=== PATIENT | female | born 1970 | race Caucasian/White ===

== ENCOUNTER 2018-10-04 19:53 | Inpatient (IN) | payer OTHER ==
[~2018-10-04] VITALS: Ht 157.5 cm; Wt 62.3 kg
[2018-10-05 00:12] VITALS: BP 155/83; RESP 18
[2018-10-05] MEDS ORDERED: DOCUSATE SODIUM 100 MG CAP PO PRN (00:30)
[2018-10-05] MEDS ORDERED: BISACODYL (EC) 5 MG TAB PO PRN (00:30)
[2018-10-05] MEDS ORDERED: ACETAMINOPHEN 325 MG TAB PO PRN (00:30)
[2018-10-05] MEDS ORDERED: morphine 2 MG INJ IV PRN (00:30)
[2018-10-05] MEDS ORDERED: NACL 0.9% 3 ML SYG IV SCH (00:30)
--- NOTE | 2018-10-05 00:36 | HP ---
Date/Time of Note Date/Time of Note DATE: 10/05/18 TIME: 00:36 Assessment/Plan VTE Prophylaxis SCD applied (from Ns): Yes Pharmacological prophylaxis: NA/contraindicated Pharm contraindication: low risk/ambulating Assessment/Plan Hospital Course This is a 48-year-old female being admitted to the [facility] floor for: #1 Severe normocytic anemia: She did receive 1 unit of packed red blood cells at the transferring facility, her hemoglobin did go up to 9. At the current time we will check a stat CBC. And transfuse as indicated. She does have blood in the chest tube catheter at the current time etiology suspicious for malignancy. Will obtain a CT of the chest abdomen and pelvis to further evaluate. Will avoid NSAIDs. #2 Bilateral pleural effusions: Patient does currently have a right-sided chest tube in place. CT scan from the transfer facility did show bilateral pleural effusions with concern for loculations and possible pneumonia. Patient currently is afebrile. Will prophylactically at the current time to treat her with Zosyn IV for underlying infection.. Will consult pulmonology For further evaluation. We will get a repeat CT of the chest. Will likely need CT surgery consultation as well. #3 Right-sided lung mass: We will consult IR for CT-guided lung mass biopsy which will need to send for cytology to assess for underlying malignancy. #4 end-stage renal disease: Patient is currently on PD. Will consult nephrology Dr. Ceballos. Will avoid nephrotoxic agents. Will avoid NSAIDs. #5 renovascular hypertension: We will need to confirm patient's home medications and resume #6 history of intracranial hemorrhage: Inactive at the current time #7 seizure disorder: We will need to confirm patient's home medications and resume #8 DVT GI prophylaxis: SCDs, no GI prophylaxis indicated Further treatment strategy will be implemented as per the clinical course. I did discuss patient's right lung mass and the need for a biopsy, patient did verbalize consent to have the procedure performed she does understand the risks and benefits such as pneumothorax, bleeding etc. And she would like to proceed with lung biopsy. Will consult IR for this. . HPI/ROS Admit Date/Time Admit Date/Time Oct 04, 2018 at 23:55 Hx of Present Illness Chief complaint: Low hemoglobin, sent to the ER from her primary care doctor for low hemoglobin and shortness breath dizziness This is a 48-year-old female originally presented to 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 she had gone to her nephrology office who had noticed a low hemoglobin and she was sent to the ED for blood transfusion. Patient reported fatigue, shortness of breath and generalized weakness. She has a history of multiple transfusions over the last year. Patient had been admitted to [facility] in September and at that time she had been diagnosed with a exudative effusion and cytology was pending at discharge. She had also had a right lung mass found and a biopsy was discussed however patient did not want to pursue this at that time. She also missed several PT sessions. Patient was subsequently admitted to [facility] she had a CT of the chest done which showed a large right and moderate left loculated pleural effusions with adjacent atelectasis and/or pneumonia. Recommended to have clinical correlation to exclude empyema or malignant etiology patient also had a ultrasound thoracentesis draining 425 mils of serosanguineous fluid. Patient did receive 1 unit of PRBCs. No active signs of bleeding were noted. For her lung mass cytology was negative. Patient also history of end-stage renal disease and she was continued on PD. Patient also was noted to have a left reflective of uremia and she had peritoneal dialysis performed. Patient arrived to [facility] in stable condition. Her currently has a pig tail/ chest tube connected to a catheter under water seal. There is blood in the catheter. She denies any symptoms at the current time. Allergies: NKDA Medications: See MAR ++Please see laboratory results and imaging studies in the chart documentation for further details. ROS Const: Negative for fever, chills, weight gain or weight loss, fatigue, or diaphoresis Eyes : No pain discharge or redness or change in visual acuity ENT: No pain, sore throat, congestion, congestion, dysphagia or discharge Respiratory: No shortness of breath, cough, sputum, wheezing, or pleuritic pain Cardiovascular: No chest pain, palpitation, PND, or edema GI : no change in appetite, abdominal pain, nausea, vomiting, diarrhea, constipation, or change in the color his stool Genitourinary: No dysuria, hematuria, flank pain , discharge or CVA tenderness Musculoskeletal: No joint pain, back pain, neck pain, restricted range of motion in neck or joints Skin: No rash, bruising or hives Neuro: No headache, dizziness, syncope, seizure, focal weakness Endocrine: No polyuria, polydipsia, temperature intolerance Psych: No hallucination, depression, anxiety or suicidal ideation PMH/Family/Social Past Medical History Severe anemia secondary to anemia of chronic renal disease and/or possible malignancy, end-stage renal disease on peritoneal dialysis, renovascular hypertension, hypercholesterolemia, history of intracranial hemorrhage and seizure disorder Lung mass pleural effusion both transudative and exudative. Medications Current Medications IV Flush (NS 3 ml) 3 ml PER PROTOCOL IV ; Start 10/05/18 at 00:30; Status UNV Ondansetron HCl (Zofran Inj) 4 mg Q6H PRN IV NAUSEA/VOMITING; Start 10/05/18 at 00:30; Status UNV Acetaminophen (Tylenol Tab) 650 mg Q6H PRN PO .PAIN 1-3 OR TEMP; Start 10/05/18 at 00:30; Status UNV Docusate Sodium (Colace) 100 mg Q12H PRN PO .CONSTIPATION; Start 10/05/18 at 00:30; Status UNV Bisacodyl (Dulcolax) 5 mg DAILY PRN PO .CONSTIPATION; Start 10/05/18 at 00:30; Status UNV Acetaminophen/ Hydrocodone Bitart ([place] (5/325)) 1 tab Q4H PRN PO MODERATE PAIN LEVEL 4-6; Start 10/05/18 at 00:30; Status UNV Morphine Sulfate (morphine) 1 mg Q4H PRN IV SEVERE PAIN LEVEL 7-10; Start 10/05/18 at 00:30; Status UNV Coded Allergies: No Known Allergy (Unverified , 10/05/18) Past Surgical History unknown, unable to obtain Family History Significant Family History: other (unknown unable to obtain) Social History Alcohol Use: none Smoking Status: Unknown if ever smoked Drug Use: none Exam/Review of Systems Vital Signs Vitals Vital Signs Date Temp Pulse Resp B/P (MAP) Pulse Ox O2 O2 Flow FiO2 Time Delivery Rate 10/05/18 98.9 18 155/83 98 00:12 (107) Exam Exam General: Patient is currently lying in bed in no acute distress HEENT: Atraumatic, normocephalic. The pupils are equal, round and reactive. Ext raocular motor are intact Neck: Supple with full range of motion. No rigidity or meningismus Chest: Right pigtail catheter connected to catheter under waterseal draining blood Lungs: Coarse breath sounds of the right lung field Heart: Normal S1-S2, Regular rhythm and rate. Abdomen: Peritoneal dialysis catheter, soft , nontender, nondistended , bowel sounds are present. No guarding no rebound tenderness , No masses or organomegaly. No costovertebral temporal angle mass Extremities: Normal to inspection, no edema no cyanosis Neurologic: Normal mental status, speech normal, cranial nerves II through XII are intact, motor and sensory are intact, no focal weakness CHARLI GUTIERREZ Oct 05, 2018 00:36
[2018-10-05] MEDS: morphine 2 MG INJ IV PRN ×5 (01:29→23:24)
[2018-10-05 02:06] VITALS: BP 149/83; PULSE 93; RESP 18
[2018-10-05] MEDS ORDERED: SOD CHLORIDE 0.9% 250 ML IV* ONE (06:59)
[2018-10-05 07:07] VITALS: Ht 157.5 cm; Wt 62.3 kg
[2018-10-05 07:58] VITALS: BP 178/87; PULSE 93; RESP 16
[2018-10-05] MEDS: PIPER-TAZO 2.25 GM (PMX) 50 ML IVPB SCH ×3 (10:00→22:06)
[2018-10-05] MEDS ORDERED: ATOR40TA68 PO (10:58)
[2018-10-05] MEDS ORDERED: AMLO2.5T78 PO (10:58)
[2018-10-05] MEDS ORDERED: ALBU18HF INHALATION ×2 (10:59)
[2018-10-05] MEDS ORDERED: CALC667T2 PO (10:59)
[2018-10-05] MEDS ORDERED: ONDA4TAB13 PO (10:59)
[2018-10-05] MEDS ORDERED: TRAM50TA2 PO (10:59)
[2018-10-05] MEDS ORDERED: ACET1TAB40 PO (10:59)
[2018-10-05] MEDS ORDERED: OMEP20CA16 PO (10:59)
[2018-10-05] MEDS ORDERED: GABA100C14 PO (10:59)
[2018-10-05] MEDS ORDERED: BECL10.6 IH (10:59)
[2018-10-05] MEDS ORDERED: [UNRECOGNIZED DRUG - CODE] PO (10:59)
[2018-10-05] MEDS ORDERED: CLON0.2T5 PO (10:59)
[2018-10-05] MEDS ORDERED: FOLI-49 PO (10:59)
[2018-10-05] MEDS ORDERED: SVL800C PO (10:59)
[2018-10-05] MEDS ORDERED: FER325 PO (10:59)
[2018-10-05] MEDS ORDERED: ZOLP10TA5 PO (10:59)
[2018-10-05] MEDS ORDERED: LOSA50TA2 PO (10:59)
[2018-10-05] MEDS ORDERED: [UNRECOGNIZED DRUG - OTHER] PO (10:59)
[2018-10-05] MEDS ORDERED: METO-319 PO (10:59)
[2018-10-05] MEDS ORDERED: LORA1TAB PO (10:59)
--- NOTE | 2018-10-05 13:08 | CONS ---
DATE OF ADMISSION: 10/04/2018 DATE OF CONSULTATION: 10/05/2018 TYPE OF CONSULTATION: Nephrology. REASON FOR CONSULTATION: End-stage renal disease. HISTORY OF PRESENT ILLNESS: This is a 48-year-old female with a past medical history of end-stage re nal disease. The patient is on peritoneal dialysis. 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 from her early childhood worker's office due to shortness of breath and dizziness. The patient upon arrival to [facility] was noted to have h emoglobin of 5, had a blood transfusion. Patient was noted to have exudative effusion, cytology. Th e patient also noted to have a right lung mass with a right moderate to left loculated effusion. The patient had a chest tube placement. The patient was then transferred to [facility] for continued care. Upon my evaluation of the patient at this time, she is currently stable. Denies any fevers, chills, nausea, vomiting. PAST MEDICAL HISTORY: See above, history of end-stage renal disease, hypertension, history of anemia , history of mineral bone disorder, history of intracranial hemorrhage. PAST SURGICAL HISTORY: Status post PD catheter placement, status post chest tube placement. FAMILY HISTORY: No family history of kidney disease. SOCIAL HISTORY: Does not drink, smoke or do drugs. MEDICATIONS: The patient's medications have been reviewed. REVIEW OF SYSTEMS: A 14-point review of systems conducted. Pertinent positives stated in HPI, other sutton negative. PHYSICAL EXAMINATION: VITAL SIGNS: Blood pressure is 178/87, respirations 16, pulse 93, temperature 98.8. HEENT: Head is normocephalic. NECK: Supple. HEART: Regular rate. LUNGS: Show diminished breath sounds at base. ABDOMEN: Soft. Positive PD catheter. No erythema or discharge noted. EXTREMITIES: Negative for clubbing, cyanosis, no edema. DERMATOLOGIC: No rashes. MUSCULOSKELETAL: No joint effusion. NEUROLOGIC: No focal deficits. IMAGING STUDIES: A CT scan of abdomen and pelvis shows thickening of the right colon, may be infecti ous or inflammatory colitis, low attenuated liver parenchyma compatible with moderate to severe steat osis, atrophic kidneys. CT scan of the chest shows large complex septated right-sided loculated righ t pleural effusion with pigtail catheter in place, enlarged central pulmonary arteries, mediastinal l ymphadenopathy. LABORATORY DATA: Reviewed. The patient has hemoglobin 7.1. Sodium 139, potassium 4.8, BUN 98, crea tinine 12.04. ASSESSMENT AND PLAN: This is a 48-year-old female who presents with: 1. End-stage renal disease. The patient is on peritoneal dialysis, per patient, she has 4 to 5 exch anges at night between 2.5 and 1.5% dextrose bags with a 2 liter fill and approximately 2.5 hour dwel l time. Plan is for peritoneal dialysis. Continue current regimen. 2. Anemia. Patient will be started on Epogen. 3. Mineral bone disorder. Will monitor calcium and phosphorus levels. Continue phosphorus binders. 4. Hypertension. Continue current blood pressure regimen. Continue ultrafiltration dialysis. 5. Bilateral pleural effusion with right-sided chest tube. The patient's fluid has been sent out fo r culture. Continue antibiotic therapy. 6. History of right-sided lung mass. Will continue to monitor. Follow up with primary team. Consi seth CT surgery evaluation. 7. Hypertension. Continue current blood pressure regimen. 8. History of intracranial hemorrhage. 9. Seizure disorder, continue medical management. Thank you, Dr. Gutierrez, for this interesting consult. It will be a pleasure to follow patient with ludmila toribio throughout the hospital course. Dictated By: PHILLIP SILVERIO DO NR/NTS Conf#: [id number] DID#: [id number] CC: YOSVANY DAS MD; CHARLI GUTIERREZ MD;*EndCC*
[2018-10-05] MEDS: SEVELAMER CARBONATE 800 MG TABLET PO SCH ×2 (14:18→18:13)
[2018-10-05 14:40] VITALS: BP 160/80; PULSE 94; RESP 18
--- NOTE | 2018-10-05 15:29 | CONS ---
Assessment/Plan Assessment/Plan Assessment/Plan (Daily) IMP: 1. Multi-loculated right pleural effusion with associated compressive and rounded atelectasis--though cannot exclude a mass-like RUL density (although likely atelectasis) and lung entrapment. Etiology of pleural effusion may be to a hemothorax which would explain her anemia. Cannot rule out malignancy RECS: 1. Ideally, a CT chest with IV contrast would be needed to help differentiate the RUL area of atelectasis vs. mass. Would need to discuss with Nephrology 2. Place CT to 20 cm H2O suction 3. Thoracic Surgery consult for possible VATS debridement/decortication and biopsy. 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 The patient upon arrival to [facility] was noted to have hemoglobin of 5, had a blood transfusion. The patient was noted to have a large multiloculated right pleural effusion and had a Rolando chest tube placed draining bloody fluid. I do not see the actual pleural fluid studies but it is reported as being exudative. Also, report of a right lung mass pending biopsy. Constitutional: no complaints Eyes: no complaints ENT: no complaints Respiratory: no complaints Cardiovascular: no complaints Gastrointestinal: pain Genitourinary: no complaints Musculoskeletal: no complaints Skin: no complaints Neurologic: no complaints Past Medical History as per HPI Home Meds Reported Medications Zolpidem Tartrate* (Zolpidem Tartrate*) 10 Mg Tablet, 10 MG PO QHS PRN for INSOMNIA, #30 TAB 10/05/18 Ondansetron Hcl* (Zofran*) 4 Mg Tab, 4 MG PO BID for n/v, TAB 10/05/18 Warfarin Sodium (Warfarin Sodium) 2 Mg Tablet, 4 MG PO DAILY, TAB 10/05/18 Albuterol Sulfate* (Ventolin HFA*) 18 Gm Hfa.aer.ad, 2 PUFF INHALATION Q6H PRN for SHORTNESS OF BREATH, #1 INHALER 10/05/18 Albuterol Sulfate* (Ventolin HFA*) 18 Gm Hfa.aer.ad, 1 PUFF INHALATION Q6, #1 INHALER 10/05/18 Acetaminophen with Codeine (Acetaminophen-Cod #3 Tablet) 1 Each Tablet, 1 TAB PO Q8 PRN for PAIN LEVEL 6-10, #20 TAB 10/05/18 Tramadol HCl (Tramadol HCl) 50 Mg Tablet, 50 MG PO BID, #60 TAB 10/05/18 Sevelamer Hcl* (Renagel*) 800 Mg Tablet, 2400 MG PO WITH MEALS, TAB 10/05/18 Beclomethasone Dipropionate (Qvar Redihaler (40 MCG)) 10.6 Gm Hfa.aeroba, 40 MCG IH BID, INH 10/05/18 Calcium Acetate* (Phoslo*) 667 Mg Tablet, 667 MG PO WITH MEALS, TAB 10/05/18 Omeprazole* (Omeprazole*) 20 Mg Capsule.dr, 20 MG PO DAILY, #30 CAP 10/05/18 [Nephrovites] No Conflict Check, 1 PO DAILY 10/05/18 Metoprolol Succinate* (Toprol XL*) 50 Mg Tab.er.24h, 50 MG PO DAILY, #30 TAB 10/05/18 Losartan Potassium* (Cozaar*) 50 Mg Tablet, 50 MG PO BID, #60 TAB 10/05/18 Lorazepam* (Lorazepam*) 1 Mg Tablet, 1 MG PO BID PRN for ANXIETY, #30 TAB 10/05/18 Gabapentin* (Gabapentin*) 100 Mg Capsule, 100 MG PO TID, #90 CAP 10/05/18 Folic Acid* (Folic Acid*) 1 Mg Tablet, 1 MG PO DAILY, TAB 10/05/18 Ferrous Sulfate* (Ferrous Sulfate*) 325 Mg Tabec, 325 MG PO DAILY, TAB 10/05/18 Clonidine Hcl* (Clonidine Hcl*) 0.2 Mg Tablet, 0.2 MG PO Q4H PRN for ELEVATED BLOOD PRESSURE, TAB 10/05/18 Amlodipine Besylate* (Amlodipine Besylate*) 2.5 Mg Tablet, 5 MG PO DAILY, #30 TAB 10/05/18 Atorvastatin* (Atorvastatin*) 40 Mg Tablet, 40 MG PO QHS, #30 TAB 10/05/18 Medications Current Medications IV Flush (NS 3 ml) 3 ml PER PROTOCOL IV Last administered on 10/05/18at 01:29; Admin Dose 3 ML; Start 10/05/18 at 00:30 Ondansetron HCl (Zofran Inj) 4 mg Q6H PRN IV NAUSEA/VOMITING; Start 10/05/18 at 00:30 Acetaminophen (Tylenol Tab) 650 mg Q6H PRN PO .PAIN 1-3 OR TEMP; Start 10/05/18 at 00:30 Docusate Sodium (Colace) 100 mg Q12H PRN PO .CONSTIPATION; Start 10/05/18 at 00:30 Bisacodyl (Dulcolax) 5 mg DAILY PRN PO .CONSTIPATION; Start 10/05/18 at 00:30 Acetaminophen/ Hydrocodone Bitart ([place] (5/325)) 1 tab Q4H PRN PO MODERATE PAIN LEVEL 4-6; Start 10/05/18 at 00:30 Morphine Sulfate (morphine) 2 mg Q4H PRN IV SEVERE PAIN LEVEL 7-10 Last administered on 10/05/18at 14:00; Admin Dose 2 MG; Start 10/05/18 at 00:38 Hydralazine HCl (Apresoline) 10 mg Q4H PRN IV ELEVATED SYSTOLIC BP; Start 10/05/18 at 01:30 Piperacillin Sod/ Tazobactam Sod 50 ml @ 100 mls/hr Q12 IVPB Last administered on 10/05/18at 14:18; Admin Dose 100 MLS/HR; Start 10/05/18 at 10:00 Sevelamer Carbonate (Renvela) 800 mg WITH MEALS PO Last administered on 10/05/18at 14:18; Admin Dose 800 MG; Start 10/05/18 at 12:00 Allergies: Coded Allergies: No Known Allergy (Unverified , 10/05/18) Past Surgical History Past Surgical Hx: other (PD catheter ) Social History Alcohol Use: none Smoking Status: Unknown if ever smoked Drug Use: none Exam/Review of Systems Exam Vitals Vital Signs Date Temp Pulse Resp B/P (MAP) Pulse Ox O2 O2 Flow FiO2 Time Delivery Rate 10/05/18 98.9 94 18 160/80 100 14:40 (106) 10/05/18 Nasal 3.0 09:20 Cannula Intake and Output 10/04/18 10/04/18 10/05/18 1515:00 23:00 07:00 OutputOutput Total 0 ml BalanceBalance 0 ml Constitutional: alert, oriented Psych: no complaints Head: normocephalic, atraumatic Eyes: nl conjunctiva, EOMI, nl lids ENMT: nl external ears & nose, nl lips & teeth, nl nasal mucosa & septum Neck: supple, non-tender Respiratory: diminished breath sounds Cardiovascular: regular rate and rhythm Gastrointestinal: soft, nl liver, spleen, non-tender Musculoskeletal: nl extremities to inspection Extremities: normal pulses 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: COMPLETIONS ENGINEER II-XII intact, DTR's symmetric Results Result Diagram: 10/05/18 0121 10/05/18 0120 Results 24hrs Laboratory Tests Test 10/05/18 01:20 10/05/18 01:21 10/05/18 04:08 Sodium Level 139 Potassium Level 4.8 Chloride Level 94 L Carbon Dioxide Level 24 Anion Gap 21 H Blood Urea Nitrogen 98 H Creatinine 12.04 H Est Glomerular Filtrat Rate mL/min 3 L Glucose Level 92 Calcium Level 8.1 L Magnesium Level 2.1 Total Bilirubin 0.0 L Direct Bilirubin 0.00 Indirect Bilirubin 0.0 Aspartate Amino Transf (AST/SGOT) 35 Alanine Aminotransferase (ALT/SGPT) 11 L Alkaline Phosphatase 245 H Total Protein 5.9 L Albumin 2.5 L Globulin 3.40 H Albumin/Globulin Ratio 0.73 Thyroid Stimulating Hormone (TSH) 3.220 White Blood Count 12.9 H Red Blood Count 2.60 L Hemoglobin 7.1 L Hematocrit 22.6 L Mean Corpuscular Volume 86.9 Mean Corpuscular Hemoglobin 27.3 L Mean Corpuscular Hemoglobin Concent 31.4 L Red Cell Distribution Width 17.1 H Platelet Count 438 H Mean Platelet Volume 10.6 H Immature Granulocytes % 1.300 H Neutrophils % 71.3 Lymphocytes % 13.2 L Monocytes % 12.9 H Eosinophils % 0.8 Basophils % 0.5 Nucleated Red Blood Cells % 0.0 Immature Granulocytes # 0.170 H Neutrophils # 9.2 H Lymphocytes # 1.7 Monocytes # 1.7 H Eosinophils # 0.1 Basophils # 0.1 Nucleated Red Blood Cells # 0.0 Hemoglobin A1c 5.4 Phosphorus Level 6.9 H Medications Medication Current Medications IV Flush (NS 3 ml) 3 ml PER PROTOCOL IV Last administered on 10/05/18 01:29; Admin Dose 3 ML; Start 10/05/18 at 00:30 Ondansetron HCl (Zofran Inj) 4 mg Q6H PRN IV NAUSEA/VOMITING; Start 10/05/18 at 00:30 Acetaminophen (Tylenol Tab) 650 mg Q6H PRN PO .PAIN 1-3 OR TEMP; Start 10/05/18 at 00:30 Docusate Sodium (Colace) 100 mg Q12H PRN PO .CONSTIPATION; Start 10/05/18 at 00:30 Bisacodyl (Dulcolax) 5 mg DAILY PRN PO .CONSTIPATION; Start 10/05/18 at 00:30 Acetaminophen/ Hydrocodone Bitart ([place] (5/325)) 1 tab Q4H PRN PO MODERATE PAIN LEVEL 4-6; Start 10/05/18 at 00:30 Morphine Sulfate (morphine) 2 mg Q4H PRN IV SEVERE PAIN LEVEL 7-10 Last administered on 10/05/18at 14:00; Admin Dose 2 MG; Start 10/05/18 at 00:38 Hydralazine HCl (Apresoline) 10 mg Q4H PRN IV ELEVATED SYSTOLIC BP; Start 10/05/18 at 01:30 Piperacillin Sod/ Tazobactam Sod 50 ml @ 100 mls/hr Q12 IVPB Last administered on 10/05/18 14:18; Admin Dose 100 MLS/HR; Start 10/05/18 at 10:00 Sevelamer Carbonate (Renvela) 800 mg WITH MEALS PO Last administered on 10/05/18 14:18; Admin Dose 800 MG; Start 10/05/18 at 12:00 WILLIAM AUSTIN MD Oct 05, 2018 15:29
--- NOTE | 2018-10-05 16:47 | PN ---
Date/Time of Note Date/Time of Note DATE: 10/05/18 TIME: 16:45 Assessment/Plan VTE Prophylaxis Risk score (from Ns)>0 risk: 2 SCD applied (from Ns): Yes Pharmacological prophylaxis: heparin Lines/Catheters Urinary Cath still in place: No Assessment/Plan Hospital Course 48 yo female with ESRD on PD with loculated pleural effusion s/p CT - Continue CT - VATS consideration per CT surg - Appreciate pulmonary management ESRD: - PD per renal Anemia of CKD: - Transfuse to Hgb 7 - SONIA per renal Result Diagram: 10/05/18 0121 10/05/18 0120 Results 24hrs Laboratory Tests Test 10/05/18 01:20 10/05/18 01:21 10/05/18 04:08 Sodium Level 139 Potassium Level 4.8 Chloride Level 94 L Carbon Dioxide Level 24 Anion Gap 21 H Blood Urea Nitrogen 98 H Creatinine 12.04 H Est Glomerular Filtrat Rate mL/min 3 L Glucose Level 92 Calcium Level 8.1 L Magnesium Level 2.1 Total Bilirubin 0.0 L Direct Bilirubin 0.00 Indirect Bilirubin 0.0 Aspartate Amino Transf (AST/SGOT) 35 Alanine Aminotransferase (ALT/SGPT) 11 L Alkaline Phosphatase 245 H Total Protein 5.9 L Albumin 2.5 L Globulin 3.40 H Albumin/Globulin Ratio 0.73 Thyroid Stimulating Hormone (TSH) 3.220 White Blood Count 12.9 H Red Blood Count 2.60 L Hemoglobin 7.1 L Hematocrit 22.6 L Mean Corpuscular Volume 86.9 Mean Corpuscular Hemoglobin 27.3 L Mean Corpuscular Hemoglobin Concent 31.4 L Red Cell Distribution Width 17.1 H Platelet Count 438 H Mean Platelet Volume 10.6 H Immature Granulocytes % 1.300 H Neutrophils % 71.3 Lymphocytes % 13.2 L Monocytes % 12.9 H Eosinophils % 0.8 Basophils % 0.5 Nucleated Red Blood Cells % 0.0 Immature Granulocytes # 0.170 H Neutrophils # 9.2 H Lymphocytes # 1.7 Monocytes # 1.7 H Eosinophils # 0.1 Basophils # 0.1 Nucleated Red Blood Cells # 0.0 Hemoglobin A1c 5.4 Phosphorus Level 6.9 H Subjective 24 Hr Interval Summary Free Text/Dictation Patinet very comfortable, no complaints CT to suction in place Exam/Review of Systems Exam Vitals Vital Signs Date Temp Pulse Resp B/P (MAP) Pulse Ox O2 O2 Flow FiO2 Time Delivery Rate 10/05/18 98.9 94 18 160/80 100 14:40 (106) 10/05/18 Nasal 3.0 09:20 Cannula Intake and Output 10/04/18 10/04/18 10/05/18 1515:00 23:00 07:00 OutputOutput Total 0 ml BalanceBalance 0 ml Constitutional: alert, oriented, well developed Psych: no complaints, nl mood/affect Head: normocephalic, atraumatic Eyes: nl conjunctiva, EOMI, nl lids, nl sclera, PERRL ENMT: nl external ears & nose, nl lips & teeth, nl nasal mucosa & septum Neck: supple, non-tender Respiratory: clear to auscultation, normal air movement Cardiovascular: regular rate and rhythm, nl pulses Gastrointestinal: soft, nl liver, spleen, non-tender Musculoskeletal: nl extremities to inspection, nl gait and stance Extremities: normal pulses 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: 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, nl mental status, nl speech, nl strength Skin: nl turgor; No rash or lesions Lymph: nl lymph nodes Results Results 24hrs Laboratory Tests Test 10/05/18 01:20 10/05/18 01:21 10/05/18 04:08 Sodium Level 139 Potassium Level 4.8 Chloride Level 94 L Carbon Dioxide Level 24 Anion Gap 21 H Blood Urea Nitrogen 98 H Creatinine 12.04 H Est Glomerular Filtrat Rate mL/min 3 L Glucose Level 92 Calcium Level 8.1 L Magnesium Level 2.1 Total Bilirubin 0.0 L Direct Bilirubin 0.00 Indirect Bilirubin 0.0 Aspartate Amino Transf (AST/SGOT) 35 Alanine Aminotransferase (ALT/SGPT) 11 L Alkaline Phosphatase 245 H Total Protein 5.9 L Albumin 2.5 L Globulin 3.40 H Albumin/Globulin Ratio 0.73 Thyroid Stimulating Hormone (TSH) 3.220 White Blood Count 12.9 H Red Blood Count 2.60 L Hemoglobin 7.1 L Hematocrit 22.6 L Mean Corpuscular Volume 86.9 Mean Corpuscular Hemoglobin 27.3 L Mean Corpuscular Hemoglobin Concent 31.4 L Red Cell Distribution Width 17.1 H Platelet Count 438 H Mean Platelet Volume 10.6 H Immature Granulocytes % 1.300 H Neutrophils % 71.3 Lymphocytes % 13.2 L Monocytes % 12.9 H Eosinophils % 0.8 Basophils % 0.5 Nucleated Red Blood Cells % 0.0 Immature Granulocytes # 0.170 H Neutrophils # 9.2 H Lymphocytes # 1.7 Monocytes # 1.7 H Eosinophils # 0.1 Basophils # 0.1 Nucleated Red Blood Cells # 0.0 Hemoglobin A1c 5.4 Phosphorus Level 6.9 H Medications Medication Current Medications IV Flush (NS 3 ml) 3 ml PER PROTOCOL IV Last administered on 10/05/18 01:29; Admin Dose 3 ML; Start 10/05/18 at 00:30 Ondansetron HCl (Zofran Inj) 4 mg Q6H PRN IV NAUSEA/VOMITING; Start 10/05/18 at 00:30 Acetaminophen (Tylenol Tab) 650 mg Q6H PRN PO .PAIN 1-3 OR TEMP; Start 10/05/18 at 00:30 Docusate Sodium (Colace) 100 mg Q12H PRN PO .CONSTIPATION; Start 10/05/18 at 00:30 Bisacodyl (Dulcolax) 5 mg DAILY PRN PO .CONSTIPATION; Start 10/05/18 at 00:30 Acetaminophen/ Hydrocodone Bitart ([place] (5/325)) 1 tab Q4H PRN PO MODERATE PAIN LEVEL 4-6; Start 10/05/18 at 00:30 Morphine Sulfate (morphine) 2 mg Q4H PRN IV SEVERE PAIN LEVEL 7-10 Last administered on 10/05/18at 14:00; Admin Dose 2 MG; Start 10/05/18 at 00:38 Hydralazine HCl (Apresoline) 10 mg Q4H PRN IV ELEVATED SYSTOLIC BP; Start 10/05/18 at 01:30 Piperacillin Sod/ Tazobactam Sod 50 ml @ 100 mls/hr Q12 IVPB Last administered on 10/05/18 14:18; Admin Dose 100 MLS/HR; Start 10/05/18 at 10:00 Sevelamer Carbonate (Renvela) 800 mg WITH MEALS PO Last administered on 10/05/18 14:18; Admin Dose 800 MG; Start 10/05/18 at 12:00 YOSVANY DAS MD Oct 05, 2018 16:47
--- NOTE | 2018-10-05 17:06 | RADRPT ---
Echocardiogram Report Patient Name: Tiffany WOODYnt ID: [id number] : 1970 (48y 4m)Study Date: 10/05/2018 7:38:58 AM Gender: FAccession #: [id number] Tech: Julia Haynes Location: 2284-A Ref.Physician: CHARLI GUTIERREZ Height(Cm): BSA: Weight(Kg): Quality: GoodAccount #: Procedures: Echocardiographic Report: Transthoracic echocardiogram with complete 2D, M-Mode, and doppler examination. Indications: Pleural effusion, preop. Measurements: 2D/M Mode Doppler Measurement Value Normal Range Measurement Value Normal Range LVIDd 2D 4.3 [ 3.8 - 5.2 ] cm AV Peak Milton 1.5 [ 100.0 - 170.0 ] cm/se c LVIDs 2D 2.9 [ 2.2 - 3.5 ] cm AV Peak PG 9.0 [ 2.0 - 9.0 ] mmHg LVPWd 2D 0.9 [ 0.6 - 0.9 ] cm LVOT Peak [place] 1.0 [ 70.0 - 110.0 ] cm/sec IVSd 2D 0.9 [ 0.6 - 0.9 ] cm LVOT Peak PG 4.0 [ 2.0 - 6.0 ] mmHg AoR Diam 2D 2.4 [ 2.3 - 3.1 ] cm MV E Peak [place] 1.0 [ 60.0 - 130.0 ] cm/sec EDV 2D 83.1 [ 46.0 - 106.0 ] ml MV A Peak [place] 0.8 [ 100.0 - 120.0 ] cm/se c ESV 2D 33.3 [ 14.0 - 42.0 ] ml MV E/A 1.2 [ 0.8 - 1.5 ] ratio EF 2D 59.9 [ 54.0 - 74.0 ] percent MV PHT 48.0 [ 20.0 - 100.0 ] msec LA Dimen 2D 3.2 [ 2.7 - 3.8 ] cm MV Decel Time 165 [ 104 - 258 ] msec MV Decel Mitchell 6 Lat E` Milton 0.1 [ 10.0 - 15.0 ] cm/sec Lateral E/E` 10.6 [ 1.0 - 2.0 ] ratio Med E` Milton 0.1 cm/sec MV E/A 1.2 [ 0.8 - 1.5 ] ratio MVA PHT 4.6 [ 2.0 - 4.0 ] cm2 TR Peak Milton 2.9 [ 100.0 - 280.0 ] cm/se c TR Peak PG 33.0 mmHg RVSP 33.0 [ 10.0 - 36.0 ] mmHg RA Pressure 3.0 mmHg Findings: Left Ventricle: Lower limits of normal systolic function. Normal left ventricular cavity size. Normal left ventricular wall thickness. Ejection fraction is visually estimated at 50-55 %. Tissue Doppler/Mitral Doppler indices are within normal limits. Right Ventricle: Normal right ventricular size. Normal right ventricular systolic function. Left Atrium: The left atrium is normal in size. Right Atrium: The right atrium is normal in size. Atrial Septum: Normal atrial septum. Ventricular septum: Normal/intact ventricular septum. Mitral Valve: Normal appearance of the mitral valve. Mild to moderate mitral valve regurgitation. Aortic Valve: Normal appearance of the aortic valve. No aortic regurgitation. Tricuspid Valve: Normal appearance of the tricuspid valve. Estimated peak PA systolic pressure 36 mmHg. There is trace tricuspid regurgitation. Pericardium: Normal pericardium with no significant pericardial effusion. Aorta: Normal aortic root. IVC: Normal size and normal respiratory collapse consistent with normal right atrial pressure. Conclusions: Lower limits of normal systolic function. Normal left ventricular cavity size. Normal left ventricular wall thickness. Ejection fraction is visually estimated at 50-55 %. Tissue Doppler/Mitral Doppler indices are within normal limits. Normal appearance of the mitral valve. Mild to moderate mitral valve regurgitation. Normal appearance of the tricuspid valve. Estimated peak PA systolic pressure 36 mmHg. There is trace tricuspid regurgitation. Electronically Signed By: Kaleb Bang 2018-10-05 17:06:45 PDT
[2018-10-05 20:08] VITALS: BP 158/84; PULSE 101; RESP 18
[2018-10-05 20:46] VITALS: BP 175/94; PULSE 94
[2018-10-06 02:40] VITALS: BP 173/97; PULSE 96; RESP 18
[2018-10-06] MEDS: hydrALAzine 20 MG INJ IV PRN ×2 (02:59→08:48)
[2018-10-06] MEDS: morphine 2 MG INJ IV PRN ×5 (03:00→20:27)
[2018-10-06] MEDS: SEVELAMER CARBONATE 800 MG TABLET PO SCH ×3 (08:43→18:00)
[2018-10-06 08:49] VITALS: BP 172/95; PULSE 106; RESP 19
[2018-10-06 09:49] VITALS: BP 174/86; PULSE 113
[2018-10-06] MEDS: PIPER-TAZO 2.25 GM (PMX) 50 ML IVPB SCH ×2 (09:53→20:17)
[2018-10-06] MEDS: LISINOPRIL 20 MG TAB PO SCH ×2 (09:53→20:16)
--- NOTE | 2018-10-06 11:06 | PN ---
DATE: 10/06/2018 SUBJECTIVE: The patient had peritoneal dialysis yesterday, tolerated well. No other events noted. No hemoptysis, hematemesis or hematochezia. OBJECTIVE: VITAL SIGNS: Blood pressure is 172/95, respirations 19, pulse 106, temperature 99.5. HEENT: Head is normocephalic. NECK: Supple. HEART: Regular rate. LUNGS: Show diminished breath sounds at the base. ABDOMEN: Soft, nontender to palpation. No rebound or guarding. EXTREMITIES: Negative for clubbing, cyanosis. No edema. DERMATOLOGIC: No rashes. MUSCULOSKELETAL: No joint effusions. NEUROLOGIC: No change in exam. MEDICATIONS: Reviewed. LABORATORY DATA: From 10/06/2018 was reviewed. IMAGING: Patient's CT scan of the chest was reviewed, shows large complex multiseptated right-sided loculated pleural effusion as well as a rounded atelectasis, enlarged pulmonary arteries with main pu lmonary artery measuring 35 mm. ASSESSMENT AND PLAN: 1. End-stage renal disease. The patient is on peritoneal dialysis. The patient tolerated dialysis last night. Will have another session of her peritoneal dialysis tonight. The patient will have 5 e xchanges with 2.5% dextrose bags to augment ultrafiltration as the patient had minimal ultrafiltratio n overnight. Will monitor closely. 2. Anemia. Monitor hemoglobin and hematocrit levels. Continue Epogen. 3. Mineral bone disorder. Monitor calcium and phosphorus levels. 4. Hypertension. Continue current blood pressure regimen. Will adjust dialysate to increase ultraf iltration with peritoneal dialysis. 5. Bilateral pleural effusion, loculated, with right-sided chest tube. Continue to monitor. 6. History of right lung mass. 7. Hypertension. Continue blood pressure regimen. 8. History of intracranial hemorrhage. 9. Seizure disorder. Dictated By: PHILLIP SILVERIO DO NR/NTS Conf#: [id number] DID#: [id number] CC: YOSVANY DAS MD;*EndCC*
[2018-10-06] MEDS: ONDANSETRON 4 MG INJ IV PRN ×2 (11:35→19:03)
--- NOTE | 2018-10-06 11:45 | CONS ---
Assessment/Plan Assessment/Plan Assessment/Plan (Daily) Right-sided pleural effusion which is partially loculated Status post pigtail catheter placement Pleural effusion appears to be loculated So far negative for malignancy Patient will likely need a video-assisted thoracic surgery and decortication Discussed with the referring physicians Consultation Date/Type/Reason Admit Date/Time Oct 04, 2018 at 23:55 Date of Consultation: Oct 06, 2018 Type of Consult Thoracic surgery Reason for Consultation Chest tube management Date/Time of Note DATE: 10/06/18 TIME: 11:42 Hx of Present Illness This is a 48-year-old female who was admitted because of a pleural effusion patient underwent a pigtail catheter placement at an outside facility currently being treated for a right-sided pleural effusion which is partially loculated Fluid from the chest tube has been negative for any signs of malignancy Cardiovascular: no complaints Gastrointestinal: no complaints Genitourinary: no complaints Musculoskeletal: no complaints Skin: no complaints Neurologic: no complaints Lymphatic: no complaints Past Medical History Home Meds Reported Medications Zolpidem Tartrate* (Zolpidem Tartrate*) 10 Mg Tablet, 10 MG PO QHS PRN for INSOMNIA, #30 TAB 10/05/18 Ondansetron Hcl* (Zofran*) 4 Mg Tab, 4 MG PO BID for n/v, TAB 10/05/18 Warfarin Sodium (Warfarin Sodium) 2 Mg Tablet, 4 MG PO DAILY, TAB 10/05/18 Albuterol Sulfate* (Ventolin HFA*) 18 Gm Hfa.aer.ad, 2 PUFF INHALATION Q6H PRN for SHORTNESS OF BREATH, #1 INHALER 10/05/18 Albuterol Sulfate* (Ventolin HFA*) 18 Gm Hfa.aer.ad, 1 PUFF INHALATION Q6, #1 INHALER 10/05/18 Acetaminophen with Codeine (Acetaminophen-Cod #3 Tablet) 1 Each Tablet, 1 TAB PO Q8 PRN for PAIN LEVEL 6-10, #20 TAB 10/05/18 Tramadol HCl (Tramadol HCl) 50 Mg Tablet, 50 MG PO BID, #60 TAB 10/05/18 Sevelamer Hcl* (Renagel*) 800 Mg Tablet, 2400 MG PO WITH MEALS, TAB 10/05/18 Beclomethasone Dipropionate (Qvar Redihaler (40 MCG)) 10.6 Gm Hfa.aeroba, 40 MCG IH BID, INH 10/05/18 Calcium Acetate* (Phoslo*) 667 Mg Tablet, 667 MG PO WITH MEALS, TAB 10/05/18 Omeprazole* (Omeprazole*) 20 Mg Capsule.dr, 20 MG PO DAILY, #30 CAP 10/05/18 [Nephrovites] No Conflict Check, 1 PO DAILY 10/05/18 Metoprolol Succinate* (Toprol XL*) 50 Mg Tab.er.24h, 50 MG PO DAILY, #30 TAB 10/05/18 Losartan Potassium* (Cozaar*) 50 Mg Tablet, 50 MG PO BID, #60 TAB 10/05/18 Lorazepam* (Lorazepam*) 1 Mg Tablet, 1 MG PO BID PRN for ANXIETY, #30 TAB 10/05/18 Gabapentin* (Gabapentin*) 100 Mg Capsule, 100 MG PO TID, #90 CAP 10/05/18 Folic Acid* (Folic Acid*) 1 Mg Tablet, 1 MG PO DAILY, TAB 10/05/18 Ferrous Sulfate* (Ferrous Sulfate*) 325 Mg Tabec, 325 MG PO DAILY, TAB 10/05/18 Clonidine Hcl* (Clonidine Hcl*) 0.2 Mg Tablet, 0.2 MG PO Q4H PRN for ELEVATED BLOOD PRESSURE, TAB 10/05/18 Amlodipine Besylate* (Amlodipine Besylate*) 2.5 Mg Tablet, 5 MG PO DAILY, #30 TAB 10/05/18 Atorvastatin* (Atorvastatin*) 40 Mg Tablet, 40 MG PO QHS, #30 TAB 10/05/18 Medications Current Medications IV Flush (NS 3 ml) 3 ml PER PROTOCOL IV Last administered on 10/05/18at 01:29; A dmin Dose 3 ML; Start 10/05/18 at 00:30 Ondansetron HCl (Zofran Inj) 4 mg Q6H PRN IV NAUSEA/VOMITING Last administered on 10/06/18at 11:35; Admin Dose 4 MG; Start 10/05/18 at 00:30 Acetaminophen (Tylenol Tab) 650 mg Q6H PRN PO .PAIN 1-3 OR TEMP; Start 10/05/18 at 00:30 Docusate Sodium (Colace) 100 mg Q12H PRN PO .CONSTIPATION; Start 10/05/18 at 00:30 Bisacodyl (Dulcolax) 5 mg DAILY PRN PO .CONSTIPATION; Start 10/05/18 at 00:30 Acetaminophen/ Hydrocodone Bitart ([place] (5/325)) 1 tab Q4H PRN PO MODERATE PAIN LEVEL 4-6; Start 10/05/18 at 00:30 Morphine Sulfate (morphine) 2 mg Q4H PRN IV SEVERE PAIN LEVEL 7-10 Last administered on 10/06/18at 11:11; Admin Dose 2 MG; Start 10/05/18 at 00:38 Hydralazine HCl (Apresoline) 10 mg Q4H PRN IV ELEVATED SYSTOLIC BP Last administered on 10/06/18 08:48; Admin Dose 10 MG; Start 10/05/18 at 01:30 Piperacillin Sod/ Tazobactam Sod 50 ml @ 100 mls/hr Q12 IVPB Last administered on 10/06/18 09:53; Admin Dose 100 MLS/HR; Start 10/05/18 at 10:00 Sevelamer Carbonate (Renvela) 800 mg WITH MEALS PO Last administered on 10/06/18at 08:43; Admin Dose 800 MG; Start 10/05/18 at 12:00 Lisinopril (Zestril) 20 mg BID PO Last administered on 10/06/18 09:53; Admin Dose 20 MG; Start 10/06/18 at 10:00 Amlodipine Besylate (Norvasc) 10 mg DAILY PO ; Start 10/07/18 at 09:00 Allergies: Coded Allergies: No Known Allergy (Unverified , 10/05/18) Past Surgical History Past Surgical Hx: other (PD catheter ) Social History Alcohol Use: none Smoking Status: Unknown if ever smoked Drug Use: none Exam/Review of Systems Exam Vitals Vital Signs Date Temp Pulse Resp B/P (MAP) Pulse Ox O2 O2 Flow FiO2 Time Delivery Rate 10/06/18 113 174/86 09:49 10/06/18 99.5 19 94 08:49 10/05/18 Nasal 3.0 20:00 Cannula Intake and Output 10/05/18 10/05/18 10/06/18 1515:00 23:00 07:00 IntakeIntake Total 730 ml 290 ml 240 ml OutputOutput Total 20 ml 130 ml BalanceBalance 730 ml 270 ml 110 ml ENMT: nl external ears & nose, nl lips & teeth, nl nasal mucosa & septum Neck: supple, non-tender Respiratory: clear to auscultation, normal air movement Cardiovascular: regular rate and rhythm, nl pulses Musculoskeletal: nl extremities to inspection, nl gait and stance Extremities: normal pulses Results Result Diagram: 10/06/18 0457 10/06/18 0457 Results 24hrs Laboratory Tests Test 10/05/18 21:06 10/06/18 04:57 Hepatitis B Surface Antigen NEGATIVE Hepatitis B Surface Antibody POSITIVE H White Blood Count 13.7 H Red Blood Count 3.88 #L Hemoglobin 10.7 #L Hematocrit 33.6 #L Mean Corpuscular Volume 86.6 Mean Corpuscular Hemoglobin 27.6 L Mean Corpuscular Hemoglobin Concent 31.8 L Red Cell Distribution Width 16.5 H Platelet Count 474 H Mean Platelet Volume 10.5 H Immature Granulocytes % 1.300 H Neutrophils % 74.5 Lymphocytes % 11.0 L Monocytes % 11.9 H Eosinophils % 0.8 Basophils % 0.5 Nucleated Red Blood Cells % 0.0 Immature Granulocytes # 0.180 H Neutrophils # 10.2 H Lymphocytes # 1.5 Monocytes # 1.6 H Eosinophils # 0.1 Basophils # 0.1 Nucleated Red Blood Cells # 0.0 Prothrombin Time 16.3 H Prothrombin Time Ratio 1.3 INR International Normalized Ratio 1.30 Activated Partial Thromboplast Time 55.5 H Sodium Level 139 Potassium Level 4.7 Chloride Level 94 L Carbon Dioxide Level 25 Anion Gap 20 H Blood Urea Nitrogen 95 H Creatinine 12.75 H Est Glomerular Filtrat Rate mL/min 3 L Glucose Level 114 Calcium Level 8.3 L Phosphorus Level 6.9 H Magnesium Level 2.3 Total Bilirubin 0.0 L Direct Bilirubin 0.00 Indirect Bilirubin 0.0 Aspartate Amino Transf (AST/SGOT) 39 Alanine Aminotransferase (ALT/SGPT) 14 Alkaline Phosphatase 372 #H Total Protein 6.4 Albumin 2.7 L Globulin 3.70 H Albumin/Globulin Ratio 0.72 Medications Medication Current Medications IV Flush (NS 3 ml) 3 ml PER PROTOCOL IV Last administered on 10/05/18at 01:29; Admin Dose 3 ML; Start 10/05/18 at 00:30 Ondansetron HCl (Zofran Inj) 4 mg Q6H PRN IV NAUSEA/VOMITING Last administered on 10/06/18at 11:35; Admin Dose 4 MG; Start 10/05/18 at 00:30 Acetaminophen (Tylenol Tab) 650 mg Q6H PRN PO .PAIN 1-3 OR TEMP; Start 10/05/18 at 00:30 Docusate Sodium (Colace) 100 mg Q12H PRN PO .CONSTIPATION; Start 10/05/18 at 00:30 Bisacodyl (Dulcolax) 5 mg DAILY PRN PO .CONSTIPATION; Start 10/05/18 at 00:30 Acetaminophen/ Hydrocodone Bitart ([place] (5/325)) 1 tab Q4H PRN PO MODERATE PAIN LEVEL 4-6; Start 10/05/18 at 00:30 Morphine Sulfate (morphine) 2 mg Q4H PRN IV SEVERE PAIN LEVEL 7-10 Last administered on 10/06/18at 11:11; Admin Dose 2 MG; Start 10/05/18 at 00:38 Hydralazine HCl (Apresoline) 10 mg Q4H PRN IV ELEVATED SYSTOLIC BP Last administered on 10/06/18at 08:48; Admin Dose 10 MG; Start 10/05/18 at 01:30 Piperacillin Sod/ Tazobactam Sod 50 ml @ 100 mls/hr Q12 IVPB Last administered on 10/06/18 09:53; Admin Dose 100 MLS/HR; Start 10/05/18 at 10:00 Sevelamer Carbonate (Renvela) 800 mg WITH MEALS PO Last administered on 10/06/18 08:43; Admin Dose 800 MG; Start 10/05/18 at 12:00 Lisinopril (Zestril) 20 mg BID PO Last administered on 10/06/18at 09:53; Admin Dose 20 MG; Start 10/06/18 at 10:00 Amlodipine Besylate (Norvasc) 10 mg DAILY PO ; Start 10/07/18 at 09:00 RENAN ABAD MD Oct 06, 2018 11:45
--- NOTE | 2018-10-06 14:12 | CONS ---
Consult Date/Type/Reason Admit Date/Time Oct 04, 2018 at 23:55 Initial Consult Date 10/06/18 Type of Consultation: Pulm Date/Time of Note DATE: 10/06/18 TIME: 14:[address] on 20 cm H20 suction. Objective Vitals Vital Signs Date Temp Pulse Resp B/P (MAP) Pulse Ox O2 O2 Flow FiO2 Time Delivery Rate 10/06/18 113 174/86 09:49 10/06/18 99.5 19 94 08:49 10/05/18 Nasal 3.0 20:00 Cannula Intake and Output 10/05/18 10/05/18 10/06/18 1515:00 23:00 07:00 IntakeIntake Total 730 ml 290 ml 240 ml OutputOutput Total 20 ml 130 ml BalanceBalance 730 ml 270 ml 110 ml Exam HEENT: Neck supple; no JVD; no LAD CVS: RRR, S1 and S2 CHEST: Decreased BS right side ABD: Soft, NT, + BS EXT: No c/c/e Results/Medications Result Diagram: 10/06/18 0457 10/06/18 0457 Results 24 hrs Laboratory Tests Test 10/05/18 21:06 10/06/18 04:57 Hepatitis B Surface Antigen NEGATIVE Hepatitis B Surface Antibody POSITIVE H White Blood Count 13.7 H Red Blood Count 3.88 #L Hemoglobin 10.7 #L Hematocrit 33.6 #L Mean Corpuscular Volume 86.6 Mean Corpuscular Hemoglobin 27.6 L Mean Corpuscular Hemoglobin Concent 31.8 L Red Cell Distribution Width 16.5 H Platelet Count 474 H Mean Platelet Volume 10.5 H Immature Granulocytes % 1.300 H Neutrophils % 74.5 Lymphocytes % 11.0 L Monocytes % 11.9 H Eosinophils % 0.8 Basophils % 0.5 Nucleated Red Blood Cells % 0.0 Immature Granulocytes # 0.180 H Neutrophils # 10.2 H Lymphocytes # 1.5 Monocytes # 1.6 H Eosinophils # 0.1 Basophils # 0.1 Nucleated Red Blood Cells # 0.0 Prothrombin Time 16.3 H Prothrombin Time Ratio 1.3 INR International Normalized Ratio 1.30 Activated Partial Thromboplast Time 55.5 H Sodium Level 139 Potassium Level 4.7 Chloride Level 94 L Carbon Dioxide Level 25 Anion Gap 20 H Blood Urea Nitrogen 95 H Creatinine 12.75 H Est Glomerular Filtrat Rate mL/min 3 L Glucose Level 114 Calcium Level 8.3 L Phosphorus Level 6.9 H Magnesium Level 2.3 Total Bilirubin 0.0 L Direct Bilirubin 0.00 Indirect Bilirubin 0.0 Aspartate Amino Transf (AST/SGOT) 39 Alanine Aminotransferase (ALT/SGPT) 14 Alkaline Phosphatase 372 #H Total Protein 6.4 Albumin 2.7 L Globulin 3.70 H Albumin/Globulin Ratio 0.72 Home Meds Reported Medications Zolpidem Tartrate* (Zolpidem Tartrate*) 10 Mg Tablet, 10 MG PO QHS PRN for INSOMNIA, #30 TAB 10/05/18 Ondansetron Hcl* (Zofran*) 4 Mg Tab, 4 MG PO BID for n/v, TAB 10/05/18 Warfarin Sodium (Warfarin Sodium) 2 Mg Tablet, 4 MG PO DAILY, TAB 10/05/18 Albuterol Sulfate* (Ventolin HFA*) 18 Gm Hfa.aer.ad, 2 PUFF INHALATION Q6H PRN for SHORTNESS OF BREATH, #1 INHALER 10/05/18 Albuterol Sulfate* (Ventolin HFA*) 18 Gm Hfa.aer.ad, 1 PUFF INHALATION Q6, #1 INHALER 10/05/18 Acetaminophen with Codeine (Acetaminophen-Cod #3 Tablet) 1 Each Tablet, 1 TAB PO Q8 PRN for PAIN LEVEL 6-10, #20 TAB 10/05/18 Tramadol HCl (Tramadol HCl) 50 Mg Tablet, 50 MG PO BID, #60 TAB 10/05/18 Sevelamer Hcl* (Renagel*) 800 Mg Tablet, 2400 MG PO WITH MEALS, TAB 10/05/18 Beclomethasone Dipropionate (Qvar Redihaler (40 MCG)) 10.6 Gm Hfa.aeroba, 40 MCG IH BID, INH 10/05/18 Calcium Acetate* (Phoslo*) 667 Mg Tablet, 667 MG PO WITH MEALS, TAB 10/05/18 Omeprazole* (Omeprazole*) 20 Mg Capsule.dr, 20 MG PO DAILY, #30 CAP 10/05/18 [Nephrovites] No Conflict Check, 1 PO DAILY 10/05/18 Metoprolol Succinate* (Toprol XL*) 50 Mg Tab.er.24h, 50 MG PO DAILY, #30 TAB 10/05/18 Losartan Potassium* (Cozaar*) 50 Mg Tablet, 50 MG PO BID, #60 TAB 10/05/18 Lorazepam* (Lorazepam*) 1 Mg Tablet, 1 MG PO BID PRN for ANXIETY, #30 TAB 10/05/18 Gabapentin* (Gabapentin*) 100 Mg Capsule, 100 MG PO TID, #90 CAP 10/05/18 Folic Acid* (Folic Acid*) 1 Mg Tablet, 1 MG PO DAILY, TAB 10/05/18 Ferrous Sulfate* (Ferrous Sulfate*) 325 Mg Tabec, 325 MG PO DAILY, TAB 10/05/18 Clonidine Hcl* (Clonidine Hcl*) 0.2 Mg Tablet, 0.2 MG PO Q4H PRN for ELEVATED BLOOD PRESSURE, TAB 10/05/18 Amlodipine Besylate* (Amlodipine Besylate*) 2.5 Mg Tablet, 5 MG PO DAILY, #30 TAB 10/05/18 Atorvastatin* (Atorvastatin*) 40 Mg Tablet, 40 MG PO QHS, #30 TAB 10/05/18 Medications Current Medications IV Flush (NS 3 ml) 3 ml PER PROTOCOL IV Last administered on 10/05/18at 01:29; Admin Dose 3 ML; Start 10/05/18 at 00:30 Ondansetron HCl (Zofran Inj) 4 mg Q6H PRN IV NAUSEA/VOMITING Last administered on 10/06/18at 11:35; Admin Dose 4 MG; Start 10/05/18 at 00:30 Acetaminophen (Tylenol Tab) 650 mg Q6H PRN PO .PAIN 1-3 OR TEMP; Start 10/05/18 at 00:30 Docusate Sodium (Colace) 100 mg Q12H PRN PO .CONSTIPATION; Start 10/05/18 at 00:30 Bisacodyl (Dulcolax) 5 mg DAILY PRN PO .CONSTIPATION; Start 10/05/18 at 00:30 Acetaminophen/ Hydrocodone Bitart ([place] (5/325)) 1 tab Q4H PRN PO MODERATE PAIN LEVEL 4-6; Start 10/05/18 at 00:30 Morphine Sulfate (morphine) 2 mg Q4H PRN IV SEVERE PAIN LEVEL 7-10 Last administered on 10/06/18at 11:11; Admin Dose 2 MG; Start 10/05/18 at 00:38 Hydralazine HCl (Apresoline) 10 mg Q4H PRN IV ELEVATED SYSTOLIC BP Last administered on 10/06/18 08:48; Admin Dose 10 MG; Start 10/05/18 at 01:30 Piperacillin Sod/ Tazobactam Sod 50 ml @ 100 mls/hr Q12 IVPB Last administered on 10/06/18 09:53; Admin Dose 100 MLS/HR; Start 10/05/18 at 10:00 Sevelamer Carbonate (Renvela) 800 mg WITH MEALS PO Last administered on 10/06/18 13:10; Admin Dose 800 MG; Start 10/05/18 at 12:00 Lisinopril (Zestril) 20 mg BID PO Last administered on 10/06/18 09:53; Admin Dose 20 MG; Start 10/06/18 at 10:00 Amlodipine Besylate (Norvasc) 10 mg DAILY PO ; Start 10/07/18 at 09:00 Assessment/Plan Assessment/Plan (Daily) IMP: 1. Multi-loculated right pleural effusion with associated compressive and rounded atelectasis--though cannot exclude a mass-like RUL density (although likely atelectasis) and lung entrapment. Etiology of pleural effusion may be to a hemothorax which would explain her anemia. Cannot rule out malignancy RECS: 1. Continue CT to 20 cm H2O suction 2. Thoracic Surgery consult for possible VATS debridement/decortication and biopsy WILLIAM AUSTIN MD Oct 06, 2018 14:12
[2018-10-06 14:38] VITALS: BP 158/82; PULSE 96; RESP 18
--- NOTE | 2018-10-06 16:58 | PN ---
Date/Time of Note Date/Time of Note DATE: 10/06/18 TIME: 16:57 Assessment/Plan VTE Prophylaxis Risk score (from Ns)>0 risk: 2 SCD applied (from Ns): Yes Pharmacological prophylaxis: heparin Lines/Catheters IV Catheter Type (from Nrs): Saline Lock Urinary Cath still in place: No Reason Cath still needed: urinary retention Assessment/Plan Hospital Course 48 yo female with ESRD on PD with loculated pleural effusion s/p CT - Continue chest tube - VATS consideration per CT surg - Appreciate pulmonary management - Malignancy evaluation ESRD: - PD per renal Anemia of CKD: - Transfuse to Hgb 7 - SONIA per renal Result Diagram: 10/06/18 0457 10/06/18 0457 Results 24hrs Laboratory Tests Test 10/05/18 21:06 10/06/18 04:57 Hepatitis B Surface Antigen NEGATIVE Hepatitis B Surface Antibody POSITIVE H White Blood Count 13.7 H Red Blood Count 3.88 #L Hemoglobin 10.7 #L Hematocrit 33.6 #L Mean Corpuscular Volume 86.6 Mean Corpuscular Hemoglobin 27.6 L Mean Corpuscular Hemoglobin Concent 31.8 L Red Cell Distribution Width 16.5 H Platelet Count 474 H Mean Platelet Volume 10.5 H Immature Granulocytes % 1.300 H Neutrophils % 74.5 Lymphocytes % 11.0 L Monocytes % 11.9 H Eosinophils % 0.8 Basophils % 0.5 Nucleated Red Blood Cells % 0.0 Immature Granulocytes # 0.180 H Neutrophils # 10.2 H Lymphocytes # 1.5 Monocytes # 1.6 H Eosinophils # 0.1 Basophils # 0.1 Nucleated Red Blood Cells # 0.0 Prothrombin Time 16.3 H Prothrombin Time Ratio 1.3 INR International Normalized Ratio 1.30 Activated Partial Thromboplast Time 55.5 H Sodium Level 139 Potassium Level 4.7 Chloride Level 94 L Carbon Dioxide Level 25 Anion Gap 20 H Blood Urea Nitrogen 95 H Creatinine 12.75 H Est Glomerular Filtrat Rate mL/min 3 L Glucose Level 114 Calcium Level 8.3 L Phosphorus Level 6.9 H Magnesium Level 2.3 Total Bilirubin 0.0 L Direct Bilirubin 0.00 Indirect Bilirubin 0.0 Aspartate Amino Transf (AST/SGOT) 39 Alanine Aminotransferase (ALT/SGPT) 14 Alkaline Phosphatase 372 #H Total Protein 6.4 Albumin 2.7 L Globulin 3.70 H Albumin/Globulin Ratio 0.72 Subjective 24 Hr Interval Summary Free Text/Dictation Still wtih pain despite morphine injections Awiating CT surgery Exam/Review of Systems Exam Vitals Vital Signs Date Temp Pulse Resp B/P (MAP) Pulse Ox O2 O2 Flow FiO2 Time Delivery Rate 10/06/18 113 174/86 09:49 10/06/18 99.5 19 94 08:49 10/05/18 Nasal 3.0 20:00 Cannula Intake and Output 10/05/18 10/05/18 10/06/18 1414:59 22:59 06:59 IntakeIntake Total 730 ml 290 ml 240 ml OutputOutput Total 20 ml 130 ml BalanceBalance 730 ml 270 ml 110 ml Constitutional: alert, oriented, well developed Psych: no complaints, nl mood/affect Head: normocephalic, atraumatic Eyes: nl conjunctiva, EOMI, nl lids, nl sclera, PERRL ENMT: nl external ears & nose, nl lips & teeth, nl nasal mucosa & septum Neck: supple, non-tender Respiratory: clear to auscultation, normal air movement Cardiovascular: regular rate and rhythm, nl pulses Gastrointestinal: soft, nl liver, spleen, non-tender Musculoskeletal: nl extremities to inspection, nl gait and stance Extremities: normal pulses 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, nl mental status, nl speech, nl strength Skin: nl turgor; No rash or lesions Lymph: nl lymph nodes Results Results 24hrs Laboratory Tests Test 10/05/18 21:06 10/06/18 04:57 Hepatitis B Surface Antigen NEGATIVE Hepatitis B Surface Antibody POSITIVE H White Blood Count 13.7 H Red Blood Count 3.88 #L Hemoglobin 10.7 #L Hematocrit 33.6 #L Mean Corpuscular Volume 86.6 Mean Corpuscular Hemoglobin 27.6 L Mean Corpuscular Hemoglobin Concent 31.8 L Red Cell Distribution Width 16.5 H Platelet Count 474 H Mean Platelet Volume 10.5 H Immature Granulocytes % 1.300 H Neutrophils % 74.5 Lymphocytes % 11.0 L Monocytes % 11.9 H Eosinophils % 0.8 Basophils % 0.5 Nucleated Red Blood Cells % 0.0 Immature Granulocytes # 0.180 H Neutrophils # 10.2 H Lymphocytes # 1.5 Monocytes # 1.6 H Eosinophils # 0.1 Basophils # 0.1 Nucleated Red Blood Cells # 0.0 Prothrombin Time 16.3 H Prothrombin Time Ratio 1.3 INR International Normalized Ratio 1.30 Activated Partial Thromboplast Time 55.5 H Sodium Level 139 Potassium Level 4.7 Chloride Level 94 L Carbon Dioxide Level 25 Anion Gap 20 H Blood Urea Nitrogen 95 H Creatinine 12.75 H Est Glomerular Filtrat Rate mL/min 3 L Glucose Level 114 Calcium Level 8.3 L Phosphorus Level 6.9 H Magnesium Level 2.3 Total Bilirubin 0.0 L Direct Bilirubin 0.00 Indirect Bilirubin 0.0 Aspartate Amino Transf (AST/SGOT) 39 Alanine Aminotransferase (ALT/SGPT) 14 Alkaline Phosphatase 372 #H Total Protein 6.4 Albumin 2.7 L Globulin 3.70 H Albumin/Globulin Ratio 0.72 Medications Medication Current Medications IV Flush (NS 3 ml) 3 ml PER PROTOCOL IV Last administered on 10/05/18 01:29; Admin Dose 3 ML; Start 10/05/18 at 00:30 Ondansetron HCl (Zofran Inj) 4 mg Q6H PRN IV NAUSEA/VOMITING Last administered on 10/06/18 11:35; Admin Dose 4 MG; Start 10/05/18 at 00:30 Acetaminophen (Tylenol Tab) 650 mg Q6H PRN PO .PAIN 1-3 OR TEMP; Start 10/05/18 at 00:30 Docusate Sodium (Colace) 100 mg Q12H PRN PO .CONSTIPATION; Start 10/05/18 at 00:30 Bisacodyl (Dulcolax) 5 mg DAILY PRN PO .CONSTIPATION; Start 10/05/18 at 00:30 Acetaminophen/ Hydrocodone Bitart ([place] (5/325)) 1 tab Q4H PRN PO MODERATE PAIN LEVEL 4-6; Start 10/05/18 at 00:30 Morphine Sulfate (morphine) 2 mg Q4H PRN IV SEVERE PAIN LEVEL 7-10 Last administered on 10/06/18 15:32; Admin Dose 2 MG; Start 10/05/18 at 00:38 Hydralazine HCl (Apresoline) 10 mg Q4H PRN IV ELEVATED SYSTOLIC BP Last administered on 10/06/18 08:48; Admin Dose 10 MG; Start 10/05/18 at 01:30 Piperacillin Sod/ Tazobactam Sod 50 ml @ 100 mls/hr Q12 IVPB Last administered on 10/06/18 09:53; Admin Dose 100 MLS/HR; Start 10/05/18 at 10:00 Sevelamer Carbonate (Renvela) 800 mg WITH MEALS PO Last administered on 10/06/18at 13:10; Admin Dose 800 MG; Start 10/05/18 at 12:00 Lisinopril (Zestril) 20 mg BID PO Last administered on 10/06/18at 09:53; Admin Dose 20 MG; Start 10/06/18 at 10:00 Amlodipine Besylate (Norvasc) 10 mg DAILY PO ; Start 10/07/18 at 09:00 YOSVANY DAS MD Oct 06, 2018 16:57
[2018-10-06 19:30] VITALS: BP 169/84; PULSE 105
[2018-10-06 20:16] VITALS: BP 166/91; PULSE 101; RESP 18
[2018-10-06] MEDS: oxyCODONE (CR) 15 MG TAB [oxyCONTIN] PO SCH (20:16)
[2018-10-06] MEDS: HYDROCODONE/APAP (5/325) TAB PO PRN (22:04)
[2018-10-07] MEDS: morphine 2 MG INJ IV PRN ×3 (01:32→21:44)
[2018-10-07 01:34] VITALS: BP 156/84; PULSE 104; RESP 18
[2018-10-07] MEDS ORDERED: LORAZEPAM 1 MG TAB PO PRN (02:00)
[2018-10-07] MEDS: ONDANSETRON 4 MG INJ IV PRN ×2 (04:31→17:54)
[2018-10-07] MEDS: HYDROCODONE/APAP (5/325) TAB PO PRN (04:31)
[2018-10-07] MEDS ORDERED: DIPHENHYDRAMINE 25 MG CAP PO ONE (05:00)
[2018-10-07] MEDS: hydrALAzine 20 MG INJ IV PRN (06:48)
[2018-10-07 07:05] VITALS: BP 183/94; PULSE 109
[2018-10-07 08:04] VITALS: BP 166/99; PULSE 114; RESP 20
[2018-10-07] MEDS: PIPER-TAZO 2.25 GM (PMX) 50 ML IVPB SCH ×2 (09:12→21:43)
[2018-10-07] MEDS: SEVELAMER CARBONATE 800 MG TABLET PO SCH ×3 (09:12→17:50)
[2018-10-07] MEDS: LISINOPRIL 20 MG TAB PO SCH ×2 (09:13→21:45)
[2018-10-07] MEDS: oxyCODONE (CR) 15 MG TAB [oxyCONTIN] PO SCH ×2 (09:13→21:45)
[2018-10-07] MEDS: AMLODIPINE 10 MG TAB PO SCH (09:13)
--- NOTE | 2018-10-07 09:25 | PN ---
DATE: 10/07/2018 SUBJECTIVE: The patient overnight had peritoneal dialysis, tolerated it well. The patient had minim al ultrafiltration despite using a 2.5% dextrose solution. I spoke again with the patient in detail. She now admits to using 4.25% dextrose solution at times a t home. I explained to the patient that we will change the dialysate concentration to 4.25%. The pa mg agrees. OBJECTIVE: VITAL SIGNS: Blood pressure is 166/99, respirations 20, pulse 114, temperature 98.0. HEENT: Head is normocephalic. NECK: Supple. HEART: Regular rate. LUNGS: Show diminished breath sounds at the base. ABDOMEN: Soft, nontender to palpation without rebound or guarding. EXTREMITIES: Negative for clubbing, cyanosis, no edema. DERMATOLOGIC: No rashes. MUSCULOSKELETAL: No joint effusions. NEUROLOGIC: No change in exam. MEDICATIONS: The patient's medications have been reviewed. LABORATORY DATA: Shows sodium 140, potassium 4.6, BUN 87, creatinine 12.13. White count 18.9, hemog lobin 11.0, platelet count is 546. ASSESSMENT AND PLAN: 1. End-stage renal disease. The patient is on peritoneal dialysis. The patient tolerated dialysis well last night. As stated above, will change the dialysate solution to 4.25 dextrose with 5 exchang es with goal ultrafiltration of approximately 1 to 2 liters. 2. Anemia. Monitor hemoglobin and hematocrit levels. Continue Epogen. 3. Mineral bone disorder. Monitor calcium and phosphorus levels. 4. Hypertension in part due to increased intravascular volume. Will attempt to increase ultrafiltra tion dialysis. Continue current blood pressure regimen. Adjust medications as needed. 5. Pleural effusion, loculated with a right-sided chest tube. The patient will be evaluated for pos sible VATS and decortication. 6. Leukocytosis, etiology is likely secondary to possible pneumonia. However, will have effluent ch ecked for a cell count and culture. 7. History of intracranial hemorrhage. 8. Seizure disorder. Dictated By: PHILLIP ARRIAZA/GLADYS Conf#: [id number] DID#: [id number] CC: YOSVANY DAS MD;*EndCC*
--- NOTE | 2018-10-07 11:48 | CONS ---
Assessment/Plan Assessment/Plan Assessment/Plan (Daily) Assessment recommendations; 1. Patient admitted with shortness of breath due to complicated right pleural effusion which likely is empyema. 2. Chronic renal failure, on peritoneal dialysis. 3. Anemia. 4. History of hypertension. 5. Persistent leukocytosis. Decrease IV fluids to KVO. Add pain control. Add vancomycin. There is no clear-cut demarcation between the pleura and the lung parenchyma on CT imaging of the chest therefore VATS could potentially be significantly complicated. Initial antibiotic treatment is recommended at least for a week to 10 days. Consultation Date/Type/Reason Admit Date/Time Oct 04, 2018 at 23:55 Initial Consult Date 10/06/18 Type of Consult Pulmonary Reason for Consultation Patient is feeling much better denies any coughing, wheezing, sputum production. Complains of pain at right chest tube insertion site. 9/10 per patient. General exam; young female, awake alert, currently in no distress. Date/Time of Note DATE: 10/07/18 TIME: 11:41 Exam/Review of Systems Exam Vitals Vital Signs Date Temp Pulse Resp B/P (MAP) Pulse Ox O2 O2 Flow FiO2 Time Delivery Rate 10/07/18 98.0 114 20 166/99 93 08:04 (121) 10/07/18 Room Air 01:34 10/05/18 3.0 20:00 Intake and Output 10/06/18 10/06/18 10/07/18 1414:59 22:59 06:59 IntakeIntake Total 290 ml 530 ml OutputOutput Total 308 ml 50 ml 30 ml BalanceBalance -18 ml 480 ml -30 ml Exam H EENT exam; supple neck, no JVD. No lymphadenopathy. Midline trachea. No thyromegaly. Pharynx is clear. Patient has fair dentition. Chest exam; diminished but clear breath sounds. Right side with pigtail catheter in place. Attached to Pleur-evac chamber. S1-S2 audible, no murmurs. Regular rhythm. Abdomen exam; soft, peritoneal dialysis catheter in place. Abdomen is nondistended, nontender. Bowel sounds audible. Extremity exam; no peripheral edema clubbing. 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 Results Result Diagram: 10/07/18 0504 10/07/18 0504 Results 24hrs Laboratory Tests Test 10/07/18 05:04 White Blood Count 18.9 #H Red Blood Count 4.04 L Hemoglobin 11.0 L Hematocrit 35.7 L Mean Corpuscular Volume 88.4 Mean Corpuscular Hemoglobin 27.2 L Mean Corpuscular Hemoglobin Concent 30.8 L Red Cell Distribution Width 16.7 H Platelet Count 546 H Mean Platelet Volume 10.9 H Immature Granulocytes % 1.500 H Neutrophils % 72.5 Lymphocytes % 12.0 L Monocytes % 13.0 H Eosinophils % 0.5 Basophils % 0.5 Nucleated Red Blood Cells % 0.0 Immature Granulocytes # 0.290 H Neutrophils # 13.7 H Lymphocytes # 2.3 Monocytes # 2.5 H Eosinophils # 0.1 Basophils # 0.1 Nucleated Red Blood Cells # 0.0 Sodium Level 140 Potassium Level 4.6 Chloride Level 91 L Carbon Dioxide Level 24 Anion Gap 25 H Blood Urea Nitrogen 87 H Creatinine 12.13 H Est Glomerular Filtrat Rate mL/min 3 L Glucose Level 138 Calcium Level 8.7 Phosphorus Level 7.5 H Total Bilirubin 0.0 L Direct Bilirubin 0.00 Indirect Bilirubin 0.0 Aspartate Amino Transf (AST/SGOT) 45 Alanine Aminotransferase (ALT/SGPT) 12 L Alkaline Phosphatase 288 H Total Protein 7.1 Albumin 3.1 L Globulin 4.00 H Albumin/Globulin Ratio 0.77 Medications Medication Current Medications IV Flush (NS 3 ml) 3 ml PER PROTOCOL IV Last administered on 10/05/18 01:29; Admin Dose 3 ML; Start 10/05/18 at 00:30 Ondansetron HCl (Zofran Inj) 4 mg Q6H PRN IV NAUSEA/VOMITING Last administered on 10/07/18 04:31; Admin Dose 4 MG; Start 10/05/18 at 00:30 Acetaminophen (Tylenol Tab) 650 mg Q6H PRN PO .PAIN 1-3 OR TEMP; Start 10/05/18 at 00:30 Docusate Sodium (Colace) 100 mg Q12H PRN PO .CONSTIPATION; Start 10/05/18 at 00:30 Bisacodyl (Dulcolax) 5 mg DAILY PRN PO .CONSTIPATION; Start 10/05/18 at 00:30 Acetaminophen/ Hydrocodone Bitart ([place] (5/325)) 1 tab Q4H PRN PO MODERATE PAIN LEVEL 4-6 Last administered on 10/07/18 04:31; Admin Dose 1 TAB; Start 10/05/18 at 00:30 Morphine Sulfate (morphine) 2 mg Q4H PRN IV SEVERE PAIN LEVEL 7-10 Last administered on 10/07/18 06:48; Admin Dose 2 MG; Start 10/05/18 at 00:38 Hydralazine HCl (Apresoline) 10 mg Q4H PRN IV ELEVATED SYSTOLIC BP Last administered on 10/07/18 06:48; Admin Dose 10 MG; Start 10/05/18 at 01:30 Piperacillin Sod/ Tazobactam Sod 50 ml @ 100 mls/hr Q12 IVPB Last administered on 10/07/18 09:12; Admin Dose 100 MLS/HR; Start 10/05/18 at 10:00 Sevelamer Carbonate (Renvela) 800 mg WITH MEALS PO Last administered on 10/07/18 09:12; Admin Dose 800 MG; Start 10/05/18 at 12:00 Lisinopril (Zestril) 20 mg BID PO Last administered on 10/07/18 09:13; Admin Dose 20 MG; Start 10/06/18 at 10:00 Amlodipine Besylate (Norvasc) 10 mg DAILY PO Last administered on 10/07/18 09:13; Admin Dose 10 MG; Start 10/07/18 at 09:00 Oxycodone HCl (Oxycontin) 15 mg BID PO Last administered on 10/07/18 09:13; Admin Dose 15 MG; Start 10/06/18 at 18:00 Lorazepam (Ativan) 1 mg BID PRN PO ANXIETY Last administered on 10/07/18 04:31; Admin Dose 1 MG; Start 10/07/18 at 02:00 ALONDRA KEENAN 25, 2019 11:48
[2018-10-07] MEDS ORDERED: VANCOMYCIN IV PER PHARMACY XX SCH (12:00)
[2018-10-07] MEDS ORDERED: HYDROCODONE/APAP (5/325) TAB PO PRN (12:00)
[2018-10-07] MEDS ORDERED: VANCOMYCIN HCL 1.25 GM in SOD CHLORIDE 0.9% 250 ML IVPB SCH (13:00)
--- NOTE | 2018-10-07 14:02 | PN ---
Date/Time of Note Date/Time of Note DATE: 10/07/18 TIME: 14:00 Assessment/Plan VTE Prophylaxis Risk score (from Ns)>0 risk: 2 SCD applied (from Ns): Yes Pharmacological prophylaxis: NA/contraindicated Pharm contraindication: surgical contra Lines/Catheters IV Catheter Type (from [facility] Saline Lock Urinary Cath still in place: No Assessment/Plan Hospital Course 48 yo female with ESRD on PD with loculated pleural effusion s/p CT - Continue chest tube - VATS consideration per CT surg - Appreciate pulmonary management - Malignancy evaluation ESRD: - PD per renal Anemia of CKD: - Transfuse to Hgb 7 - SONIA per renal Prophylaxis: SCDs Result Diagram: 10/07/18 0504 10/07/18 0504 Results 24hrs Laboratory Tests Test 10/07/18 05:04 White Blood Count 18.9 #H Red Blood Count 4.04 L Hemoglobin 11.0 L Hematocrit 35.7 L Mean Corpuscular Volume 88.4 Mean Corpuscular Hemoglobin 27.2 L Mean Corpuscular Hemoglobin Concent 30.8 L Red Cell Distribution Width 16.7 H Platelet Count 546 H Mean Platelet Volume 10.9 H Immature Granulocytes % 1.500 H Neutrophils % 72.5 Lymphocytes % 12.0 L Monocytes % 13.0 H Eosinophils % 0.5 Basophils % 0.5 Nucleated Red Blood Cells % 0.0 Immature Granulocytes # 0.290 H Neutrophils # 13.7 H Lymphocytes # 2.3 Monocytes # 2.5 H Eosinophils # 0.1 Basophils # 0.1 Nucleated Red Blood Cells # 0.0 Sodium Level 140 Potassium Level 4.6 Chloride Level 91 L Carbon Dioxide Level 24 Anion Gap 25 H Blood Urea Nitrogen 87 H Creatinine 12.13 H Est Glomerular Filtrat Rate mL/min 3 L Glucose Level 138 Calcium Level 8.7 Phosphorus Level 7.5 H Total Bilirubin 0.0 L Direct Bilirubin 0.00 Indirect Bilirubin 0.0 Aspartate Amino Transf (AST/SGOT) 45 Alanine Aminotransferase (ALT/SGPT) 12 L Alkaline Phosphatase 288 H Total Protein 7.1 Albumin 3.1 L Globulin 4.00 H Albumin/Globulin Ratio 0.77 Subjective 24 Hr Interval Summary Constitutional: no complaints Exam/Review of Systems Exam Vitals Vital Signs Date Temp Pulse Resp B/P (MAP) Pulse Ox O2 O2 Flow FiO2 Time Delivery Rate 10/07/18 98.0 114 20 166/99 93 08:04 (121) 10/07/18 Room Air 01:34 10/05/18 3.0 20:00 Intake and Output 10/06/18 10/06/18 10/07/18 1515:00 23:00 07:00 IntakeIntake Total 290 ml 530 ml OutputOutput Total 308 ml 50 ml 30 ml BalanceBalance -18 ml 480 ml -30 ml Constitutional: alert Respiratory: clear to auscultation Cardiovascular: regular rate and rhythm Gastrointestinal: soft; No distended Musculoskeletal: nl extremities to inspection Results Results 24hrs Laboratory Tests Test 10/07/18 05:04 White Blood Count 18.9 #H Red Blood Count 4.04 L Hemoglobin 11.0 L Hematocrit 35.7 L Mean Corpuscular Volume 88.4 Mean Corpuscular Hemoglobin 27.2 L Mean Corpuscular Hemoglobin Concent 30.8 L Red Cell Distribution Width 16.7 H Platelet Count 546 H Mean Platelet Volume 10.9 H Immature Granulocytes % 1.500 H Neutrophils % 72.5 Lymphocytes % 12.0 L Monocytes % 13.0 H Eosinophils % 0.5 Basophils % 0.5 Nucleated Red Blood Cells % 0.0 Immature Granulocytes # 0.290 H Neutrophils # 13.7 H Lymphocytes # 2.3 Monocytes # 2.5 H Eosinophils # 0.1 Basophils # 0.1 Nucleated Red Blood Cells # 0.0 Sodium Level 140 Potassium Level 4.6 Chloride Level 91 L Carbon Dioxide Level 24 Anion Gap 25 H Blood Urea Nitrogen 87 H Creatinine 12.13 H Est Glomerular Filtrat Rate mL/min 3 L Glucose Level 138 Calcium Level 8.7 Phosphorus Level 7.5 H Total Bilirubin 0.0 L Direct Bilirubin 0.00 Indirect Bilirubin 0.0 Aspartate Amino Transf (AST/SGOT) 45 Alanine Aminotransferase (ALT/SGPT) 12 L Alkaline Phosphatase 288 H Total Protein 7.1 Albumin 3.1 L Globulin 4.00 H Albumin/Globulin Ratio 0.77 Medications Medication Current Medications IV Flush (NS 3 ml) 3 ml PER PROTOCOL IV Last administered on 10/05/18at 01:29; Admin Dose 3 ML; Start 10/05/18 at 00:30 Ondansetron HCl (Zofran Inj) 4 mg Q6H PRN IV NAUSEA/VOMITING Last administered on 10/07/18at 04:31; Admin Dose 4 MG; Start 10/05/18 at 00:30 Acetaminophen (Tylenol Tab) 650 mg Q6H PRN PO .PAIN 1-3 OR TEMP; Start 10/05/18 at 00:30 Docusate Sodium (Colace) 100 mg Q12H PRN PO .CONSTIPATION; Start 10/05/18 at 00:30 Bisacodyl (Dulcolax) 5 mg DAILY PRN PO .CONSTIPATION; Start 10/05/18 at 00:30 Acetaminophen/ Hydrocodone Bitart ([place] (5/325)) 1 tab Q4H PRN PO MODERATE PAIN LEVEL 4-6 Last administered on 10/07/18 04:31; Admin Dose 1 TAB; Start 10/05/18 at 00:30 Morphine Sulfate (morphine) 2 mg Q4H PRN IV SEVERE PAIN LEVEL 7-10 Last administered on 10/07/18 06:48; Admin Dose 2 MG; Start 10/05/18 at 00:38 Hydralazine HCl (Apresoline) 10 mg Q4H PRN IV ELEVATED SYSTOLIC BP Last administered on 10/07/18 06:48; Admin Dose 10 MG; Start 10/05/18 at 01:30 Piperacillin Sod/ Tazobactam Sod 50 ml @ 100 mls/hr Q12 IVPB Last administered on 10/07/18 09:12; Admin Dose 100 MLS/HR; Start 10/05/18 at 10:00 Sevelamer Carbonate (Renvela) 800 mg WITH MEALS PO Last administered on 10/07/18 09:12; Admin Dose 800 MG; Start 10/05/18 at 12:00 Lisinopril (Zestril) 20 mg BID PO Last administered on 10/07/18 09:13; Admin Dose 20 MG; Start 10/06/18 at 10:00 Amlodipine Besylate (Norvasc) 10 mg DAILY PO Last administered on 10/07/18 09:13; Admin Dose 10 MG; Start 10/07/18 at 09:00 Oxycodone HCl (Oxycontin) 15 mg BID PO Last administered on 10/07/18 09:13; Admin Dose 15 MG; Start 10/06/18 at 18:00 Lorazepam (Ativan) 1 mg BID PRN PO ANXIETY Last administered on 10/07/18 04 :31; Admin Dose 1 MG; Start 10/07/18 at 02:00 Vancomycin HCl (Vanco Iv Per Pharmacy) VANCOMYCIN PER PHARMACY PER PROTOCOL XX ; Start 10/07/18 at 12:00 Acetaminophen/ Hydrocodone Bitart ([place] (5/325)) 1 tab Q4H PRN PO MODERATE PAIN LEVEL 4-6; Start 10/07/18 at 12:00 Vancomycin HCl 1.25 gm/Sodium Chloride 250 ml @ 83.333 mls/ hr ONCE IVPB ; Start 10/07/18 at 13:00; Stop 10/07/18 at 15:59 MARITO BRIGGS Oct 07, 2018 14:02
[2018-10-07 14:32] VITALS: BP 106/76; PULSE 105; RESP 20
--- NOTE | 2018-10-07 16:11 | PN ---
Date/Time of Note Date/Time of Note DATE: 10/07/18 TIME: 16:11 Assessment/Plan Lines/Catheters IV Catheter Type (from Nrsg): Saline Lock Miguel in Place (from Nrsg): No Assessment/Plan Assessment/Plan Pleural effusion Status post right pigtail placement Continue antibiotics If no improvement may need VATS Subjective 24 Hr Interval Summary Constitutional: improved Pain Control: mild Exam/Review of Systems Vital Signs Vitals Vital Signs Date Temp Pulse Resp B/P (MAP) Pulse Ox O2 O2 Flow FiO2 Time Delivery Rate 10/07/18 99.4 105 20 106/76 100 Room Air 14:32 (86) 10/05/18 3.0 20:00 Intake and Output 10/06/18 10/06/18 10/07/18 1515:00 23:00 07:00 IntakeIntake Total 290 ml 530 ml OutputOutput Total 308 ml 50 ml 30 ml BalanceBalance -18 ml 480 ml -30 ml Exam ENMT: nl external ears & nose, nl lips & teeth, nl nasal mucosa & septum, mucosa pink and moist Neck: supple, non-tender Respiratory: clear to auscultation, normal air movement Cardiovascular: regular rate and rhythm, nl pulses Gastrointestinal: soft, nl liver, spleen, non-tender Musculoskeletal: nl extremities to inspection, nl gait and stance Results Result Diagram: 10/07/18 0504 10/07/18 0504 RENAN ABAD MD Oct 07, 2018 16:11
[2018-10-07] MEDS ORDERED: LORAZEPAM 0.5 MG TAB PO PRN (18:30)
[2018-10-07 20:47] VITALS: BP 124/78; PULSE 109; RESP 18
[2018-10-07 21:20] VITALS: BP 119/68; PULSE 84
[2018-10-07] MEDS: DIPHENHYDRAMINE 25 MG CAP PO PRN (21:45)
[2018-10-08] VITALS (7 sets, daily range): BP systolic 108–178; BP diastolic 67–98; PULSE 110–120; RESP 16–18
[2018-10-08] MEDS: morphine 2 MG INJ IV PRN ×4 (02:38→20:07)
[2018-10-08] MEDS: ONDANSETRON 4 MG INJ IV PRN ×2 (02:38→19:56)
[2018-10-08] MEDS: DIPHENHYDRAMINE 25 MG CAP PO PRN ×2 (03:50→23:53)
[2018-10-08] MEDS: AMLODIPINE 10 MG TAB PO SCH (09:00)
[2018-10-08] MEDS: LISINOPRIL 20 MG TAB PO SCH ×2 (09:00→21:24)
[2018-10-08] MEDS: oxyCODONE (CR) 15 MG TAB [oxyCONTIN] PO SCH ×2 (09:30→21:24)
[2018-10-08] MEDS: SEVELAMER CARBONATE 800 MG TABLET PO SCH ×3 (09:30→18:12)
[2018-10-08] MEDS: PIPER-TAZO 2.25 GM (PMX) 50 ML IVPB SCH ×2 (09:30→21:23)
--- NOTE | 2018-10-08 12:17 | CONS ---
Assessment/Plan Assessment/Plan Assessment/Plan (Daily) Assessment and recommendations; 1. Patient admitted with right lower lobe pneumonia with complicated parapneumonic effusion possibly empyema. Currently on appropriate antimicrobial regimen. 2. Chronic renal failure, on peritoneal dialysis. 3. History of hypertension. 4. Persistent leukocytosis. Continue current supportive care. Obtain follow-up chest x-ray in 48-72 hours. Would recommend deferring VATS if at all possible. I did have a detailed discussion with the patient as well as her at bedside and answered all their questions. Consultation Date/Type/Reason Admit Date/Time Oct 04, 2018 at 23:55 Initial Consult Date 10/06/18 Type of Consult Pulmonary Date/Time of Note DATE: 10/08/18 TIME: 12:15 24 HR Interval Summary Free Text/Dictation Patient's condition is stable. Denies any shortness of breath. Complains of occasional right sided chest pain. Denies any fever, coughing, wheezing. General exam; middle-aged female, awake alert, sitting comfortably in bed. Currently in no distress. Exam/Review of Systems Exam Vitals Vital Signs Date Temp Pulse Resp B/P (MAP) Pulse Ox O2 O2 Flow FiO2 Time Delivery Rate 10/08/18 99.7 110 18 108/67 98 09:29 (81) 10/08/18 Room Air 07:49 10/05/18 3.0 20:00 Intake and Output 10/07/18 10/07/18 10/08/18 1515:00 23:00 07:00 IntakeIntake Total 50 ml 900 ml OutputOutput Total 302 ml 15 ml 20 ml BalanceBalance -252 ml 885 ml -20 ml Exam HEENT exam; supple neck, no JVD. No lymphadenopathy. Midline trachea. No thyromegaly. Patient has fair dentition. Chest exam; diminished breath sounds right lower lobe. Rest of the lung chandler are clear. S1-S2 audible, no murmurs. Regular rhythm. Abdomen exam; soft, nontender. Peritoneal dialysis catheter in place. Abdomen is nondistended. Bowel sounds audible. No organomegaly. Extremity exam; no peripheral edema or clubbing. [employer] exam; no focal deficit. Results Result Diagram: 10/08/18 0505 10/08/18 0505 Results 24hrs Laboratory Tests Test 10/08/18 05:05 White Blood Count 21.4 H Red Blood Count 3.35 L Hemoglobin 9.1 L Hematocrit 29.4 L Mean Corpuscular Volume 87.8 Mean Corpuscular Hemoglobin 27.2 L Mean Corpuscular Hemoglobin Concent 31.0 L Red Cell Distribution Width 16.9 H Platelet Count 519 H Mean Platelet Volume 10.8 H Immature Granulocytes % 0.800 H Neutrophils % 80.8 H Lymphocytes % 5.8 L Monocytes % 12.1 H Eosinophils % 0.1 Basophils % 0.4 Nucleated Red Blood Cells % 0.1 H Immature Granulocytes # 0.170 H Neutrophils # 17.3 H Lymphocytes # 1.2 Monocytes # 2.6 H Eosinophils # 0.0 Basophils # 0.1 Nucleated Red Blood Cells # 0.0 Sodium Level 143 Potassium Level 4.9 Chloride Level 91 L Carbon Dioxide Level 28 Anion Gap 24 H Blood Urea Nitrogen 84 H Creatinine 12.67 H Est Glomerular Filtrat Rate mL/min 3 L Glucose Level 151 Calcium Level 8.8 Phosphorus Level 7.8 H Total Bilirubin 0.0 L Direct Bilirubin 0.00 Indirect Bilirubin 0.0 Aspartate Amino Transf (AST/SGOT) 40 Alanine Aminotransferase (ALT/SGPT) 15 Alkaline Phosphatase 245 H Total Protein 6.5 Albumin 2.9 L Globulin 3.60 H Albumin/Globulin Ratio 0.80 Medications Medication Current Medications IV Flush (NS 3 ml) 3 ml PER PROTOCOL IV Last administered on 10/05/18at 01:29; Admin Dose 3 ML; Start 10/05/18 at 00:30 Ondansetron HCl (Zofran Inj) 4 mg Q6H PRN IV NAUSEA/VOMITING Last administered on 10/08/18at 02:38; Admin Dose 4 MG; Start 10/05/18 at 00:30 Acetaminophen (Tylenol Tab) 650 mg Q6H PRN PO .PAIN 1-3 OR TEMP; Start 10/05/18 at 00:30 Docusate Sodium (Colace) 100 mg Q12H PRN PO .CONSTIPATION; Start 10/05/18 at 00:30 Bisacodyl (Dulcolax) 5 mg DAILY PRN PO .CONSTIPATION; Start 10/05/18 at 00:30 Acetaminophen/ Hydrocodone Bitart ([place] (5/325)) 1 tab Q4H PRN PO MODERATE PAIN LEVEL 4-6 Last administered on 10/07/18 04:31; Admin Dose 1 TAB; Start 10/05/18 at 00:30 Morphine Sulfate (morphine) 2 mg Q4H PRN IV SEVERE PAIN LEVEL 7-10 Last admini stered on 10/08/18 06:31; Admin Dose 2 MG; Start 10/05/18 at 00:38 Hydralazine HCl (Apresoline) 10 mg Q4H PRN IV ELEVATED SYSTOLIC BP Last administered on 10/07/18 06:48; Admin Dose 10 MG; Start 10/05/18 at 01:30 Piperacillin Sod/ Tazobactam Sod 50 ml @ 100 mls/hr Q12 IVPB Last administered on 10/08/18 09:30; Admin Dose 100 MLS/HR; Start 10/05/18 at 10:00 Sevelamer Carbonate (Renvela) 800 mg WITH MEALS PO Last administered on 10/08/18 09:30; Admin Dose 800 MG; Start 10/05/18 at 12:00 Lisinopril (Zestril) 20 mg BID PO Last administered on 10/07/18 21:45; Admin Dose 20 MG; Start 10/06/18 at 10:00 Amlodipine Besylate (Norvasc) 10 mg DAILY PO Last administered on 10/07/18 09:13; Admin Dose 10 MG; Start 10/07/18 at 09:00 Oxycodone HCl (Oxycontin) 15 mg BID PO Last administered on 10/08/18 09:30; Admin Dose 15 MG; Start 10/06/18 at 18:00 Vancomycin HCl (Vanco Iv Per Pharmacy) VANCOMYCIN PER PHARMACY PER PROTOCOL XX ; Start 10/07/18 at 12:00 Acetaminophen/ Hydrocodone Bitart ([place] (5/325)) 1 tab Q4H PRN PO MODERATE PAIN LEVEL 4-6; Start 10/07/18 at 12:00 Lorazepam (Ativan) 0.5 mg DAILY PRN PO ANXIETY; Start 10/07/18 at 18:30 Diphenhydramine HCl (Benadryl) 25 mg Q6H PRN PO ITCHING Last administered on 10/08/18 03:50; Admin Dose 25 MG; Start 10/07/18 at 21:00 ALONDRA KEENAN Oct 08, 2018 12:17
--- NOTE | 2018-10-08 13:08 | PN ---
DATE: 10/08/2018 SUBJECTIVE: The patient had peritoneal dialysis last night with ultrafiltration of approximately onl y 700 mL. DISPOSITION: I spoke with the patient in detail with the dialysis nurse at bedside discussing the po ssibility of needing to convert to hemodialysis while the patient is in hospital setting as the patie nt is unable to adequately ultrafiltrate with peritoneal dialysis. The patient is extremely hesitant to go back to hemodialysis. We discussed increasing the number of cycles of PD dialysis tonight. H owever, if ultrafiltration remains inadequate, we will likely need to return to hemodialysis. No oth er events noted. OBJECTIVE: VITAL SIGNS: Blood pressure is 125/74, respirations 17, pulse 120, temperature 100.4. HEENT: Head is normocephalic. NECK: Supple. HEART: Regular rate. LUNGS: Show diminished breath sounds at the base. ABDOMEN: Soft, nontender to palpation without rebound or guarding. EXTREMITIES: Negative for clubbing, cyanosis; positive edema. DERMATOLOGIC: No rashes. MUSCULOSKELETAL: No joint effusion. NEUROLOGIC: No change in exam. MEDICATIONS: The patient's medications have been reviewed. LABORATORY DATA: Shows sodium 143, potassium 4.9, chloride 91, BUN 94, creatinine 12.67. White coun t 21.4, hemoglobin 9.1, platelet count is 519. ASSESSMENT AND PLAN: 1. End-stage renal disease. The patient is on peritoneal dialysis. As stated above, the patient ma y require to be converted to hemodialysis if unable to have adequate ultrafiltration and solute clear ance with PD. Plan is to continue peritoneal dialysis tonight. The patient will have 6 cycles with 1.5 liter fill. The patient also be given heparin as there is noted fevering and dialysate. We will anticipate goal to ultrafiltration approximately 1 to 2 liters. 2. Anemia. Continue to monitor hemoglobin and hematocrit levels. Continue Epogen. 3. Brittle bones. Monitor calcium and phosphorus levels. 4. Hypertension. Continue current blood pressure regimen. Continue ultrafiltration dialysis. 5. Pleural effusion. The patient has a loculated right effusion. Status post pigtail placement. C ontinue to monitor. Follow up with CT surgery for possible VATS. 6. Leukocytosis, likely due to pneumonia. The patient is dianeal. Being evaluated for possible inf ectious etiology. 7. History of intracranial hemorrhage. 7. Seizure disorder. Dictated By: PHILLIP ARRIAZA/GLADYS Conf#: [id number] DID#: [id number] CC: YOSVANY DAS MD;*End*
--- NOTE | 2018-10-08 14:03 | PN ---
Date/Time of Note Date/Time of Note DATE: 10/08/18 TIME: 14:02 Assessment/Plan VTE Prophylaxis Risk score (from [facility])>0 risk: 2 SCD applied (from [facility]): Yes Pharmacological prophylaxis: NA/contraindicated Pharm contraindication: renal impairment Lines/Catheters IV [facility]atheter Type (from [facility] Saline Lock Urinary Cath still in place: No Assessment/Plan Hospital Course 48 yo female with ESRD on PD with loculated pleural effusion s/p CT - Continue chest tube - VATS consideration per CT surg - Appreciate pulmonary management - Malignancy evaluation ESRD: - PD per renal, patient may require hemodialysis Anemia of CKD: - Transfuse to Hgb 7 - SONIA per renal Prophylaxis: SCDs Result Diagram: 10/08/18 0505 10/08/18 0505 Results 24hrs Laboratory Tests Test 10/08/18 05:05 10/08/18 07:00 White Blood Count 21.4 H Red Blood Count 3.35 L Hemoglobin 9.1 L Hematocrit 29.4 L Mean Corpuscular Volume 87.8 Mean Corpuscular Hemoglobin 27.2 L Mean Corpuscular Hemoglobin Concent 31.0 L Red Cell Distribution Width 16.9 H Platelet Count 519 H Mean Platelet Volume 10.8 H Immature Granulocytes % 0.800 H Neutrophils % 80.8 H Lymphocytes % 5.8 L Monocytes % 12.1 H Eosinophils % 0.1 Basophils % 0.4 Nucleated Red Blood Cells % 0.1 H Immature Granulocytes # 0.170 H Neutrophils # 17.3 H Lymphocytes # 1.2 Monocytes # 2.6 H Eosinophils # 0.0 Basophils # 0.1 Nucleated Red Blood Cells # 0.0 Sodium Level 143 Potassium Level 4.9 Chloride Level 91 L Carbon Dioxide Level 28 Anion Gap 24 H Blood Urea Nitrogen 84 H Creatinine 12.67 H Est Glomerular Filtrat Rate mL/min 3 L Glucose Level 151 Calcium Level 8.8 Phosphorus Level 7.8 H Total Bilirubin 0.0 L Direct Bilirubin 0.00 Indirect Bilirubin 0.0 Aspartate Amino Transf (AST/SGOT) 40 Alanine Aminotransferase (ALT/SGPT) 15 Alkaline Phosphatase 245 H Total Protein 6.5 Albumin 2.9 L Globulin 3.60 H Albumin/Globulin Ratio 0.80 Body Fluid Type PERITONEAL Body Fluid Volume 100.0 Body Fluid Color COLORLESS Body Fluid Appearance CLEAR Body Fluid WBC 1 Body Fluid RBC (Auto) < 2000 Body Fluid Polynuclear WBCs (%) 100.0 Body Fluid Mononuclear Cells % Auto 0.0 Subjective 24 Hr Interval Summary Constitutional: no complaints Exam/Review of Systems Exam Vitals Vital Signs Date Temp Pulse Resp B/P (MAP) Pulse Ox O2 O2 Flow FiO2 Time Delivery Rate 10/08/18 100.2 111 16 123/80 97 Nasal 13:55 (94) Cannula 10/05/18 3.0 20:00 Intake and Output 10/07/18 10/07/18 10/08/18 1515:00 23:00 07:00 IntakeIntake Total 50 ml 900 ml OutputOutput Total 302 ml 15 ml 20 ml BalanceBalance -252 ml 885 ml -20 ml Constitutional: alert, oriented Respiratory: clear to auscultation Cardiovascular: regular rate and rhythm Gastrointestinal: soft; No distended Musculoskeletal: nl extremities to inspection Results Results 24hrs Laboratory Tests Test 10/08/18 05:05 10/08/18 07:00 White Blood Count 21.4 H Red Blood Count 3.35 L Hemoglobin 9.1 L Hematocrit 29.4 L Mean Corpuscular Volume 87.8 Mean Corpuscular Hemoglobin 27.2 L Mean Corpuscular Hemoglobin Concent 31.0 L Red Cell Distribution Width 16.9 H Platelet Count 519 H Mean Platelet Volume 10.8 H Immature Granulocytes % 0.800 H Neutrophils % 80.8 H Lymphocytes % 5.8 L Monocytes % 12.1 H Eosinophils % 0.1 Basophils % 0.4 Nucleated Red Blood Cells % 0.1 H Immature Granulocytes # 0.170 H Neutrophils # 17.3 H Lymphocytes # 1.2 Monocytes # 2.6 H Eosinophils # 0.0 Basophils # 0.1 Nucleated Red Blood Cells # 0.0 Sodium Level 143 Potassium Level 4.9 Chloride Level 91 L Carbon Dioxide Level 28 Anion Gap 24 H Blood Urea Nitrogen 84 H Creatinine 12.67 H Est Glomerular Filtrat Rate mL/min 3 L Glucose Level 151 Calcium Level 8.8 Phosphorus Level 7.8 H Total Bilirubin 0.0 L Direct Bilirubin 0.00 Indirect Bilirubin 0.0 Aspartate Amino Transf (AST/SGOT) 40 Alanine Aminotransferase (ALT/SGPT) 15 Alkaline Phosphatase 245 H Total Protein 6.5 Albumin 2.9 L Globulin 3.60 H Albumin/Globulin Ratio 0.80 Body Fluid Type PERITONEAL Body Fluid Volume 100.0 Body Fluid Color COLORLESS Body Fluid Appearance CLEAR Body Fluid WBC 1 Body Fluid RBC (Auto) < 2000 Body Fluid Polynuclear WBCs (%) 100.0 Body Fluid Mononuclear Cells % Auto 0.0 Medications Medication Current Medications IV Flush (NS 3 ml) 3 ml PER PROTOCOL IV Last administered on 10/05/18 01:29; Admin Dose 3 ML; Start 10/05/18 at 00:30 Ondansetron HCl (Zofran Inj) 4 mg Q6H PRN IV NAUSEA/VOMITING Last administered on 10/08/18 02:38; Admin Dose 4 MG; Start 10/05/18 at 00:30 Acetaminophen (Tylenol Tab) 650 mg Q6H PRN PO .PAIN 1-3 OR TEMP; Start 10/05/18 at 00:30 Docusate Sodium (Colace) 100 mg Q12H PRN PO .CONSTIPATION; Start 10/05/18 at 00:30 Bisacodyl (Dulcolax) 5 mg DAILY PRN PO .CONSTIPATION; Start 10/05/18 at 00:30 Acetaminophen/ Hydrocodone Bitart ([place] (5/325)) 1 tab Q4H PRN PO MODERATE PAIN LEVEL 4-6 Last administered on 10/07/18 04:31; Admin Dose 1 TAB; Start 10/05/18 at 00:30 Morphine Sulfate (morphine) 2 mg Q4H PRN IV SEVERE PAIN LEVEL 7-10 Last administered on 10/08/18 13:52; Admin Dose 2 MG; Start 10/05/18 at 00:38 Hydralazine HCl (Apresoline) 10 mg Q4H PRN IV ELEVATED SYSTOLIC BP Last administered on 10/07/18 06:48; Admin Dose 10 MG; Start 10/05/18 at 01:30 Piperacillin Sod/ Tazobactam Sod 50 ml @ 100 mls/hr Q12 IVPB Last administered on 10/08/18 09:30; Admin Dose 100 MLS/HR; Start 10/05/18 at 10:00 Sevelamer Carbonate (Renvela) 800 mg WITH MEALS PO Last administered on 12:30; Admin Dose 800 MG; Start 10/05/18 at 12:00 Lisinopril (Zestril) 20 mg BID PO Last administered on 10/07/18 21:45; Admin Dose 20 MG; Start 10/06/18 at 10:00 Amlodipine Besylate (Norvasc) 10 mg DAILY PO Last administered on 10/07/18at 09:13; Admin Dose 10 MG; Start 10/07/18 at 09:00 Oxycodone HCl (Oxycontin) 15 mg BID PO Last administered on 10/08/18at 09:30; Admin Dose 15 MG; Start 10/06/18 at 18:00 Vancomycin HCl (Vanco Iv Per Pharmacy) VANCOMYCIN PER PHARMACY PER PROTOCOL XX ; Start 10/07/18 at 12:00 Acetaminophen/ Hydrocodone Bitart ([place] (5/325)) 1 tab Q4H PRN PO MODERATE PAIN LEVEL 4-6; Start 10/07/18 at 12:00 Lorazepam (Ativan) 0.5 mg DAILY PRN PO ANXIETY; Start 10/07/18 at 18:30 Diphenhydramine HCl (Benadryl) 25 mg Q6H PRN PO ITCHING Last administered on 10/08/18at 03:50; Admin Dose 25 MG; Start 10/07/18 at 21:00 Miscellaneous Information (*Rx Drug Level Order Reminder*) 1 ONCE ONCE XX ; Start 10/09/18 at 05:00; Stop 10/09/18 at 05:01 MARITO BRIGGS Oct 08, 2018 14:03
[2018-10-08] MEDS ORDERED: HEPARIN 1000 UNITS/ML 10 ML INJ CATHETER ONE (18:00)
[2018-10-09 02:00] VITALS: BP 143/80; PULSE 128; RESP 18
[2018-10-09] MEDS: morphine 2 MG INJ IV PRN ×4 (04:00→15:03)
[2018-10-09 08:11] VITALS: BP 122/66; PULSE 111
[2018-10-09 08:22] VITALS: BP 117/69; PULSE 110; RESP 18
[2018-10-09] MEDS: ONDANSETRON 4 MG INJ IV PRN ×2 (08:45→21:40)
[2018-10-09] MEDS: LISINOPRIL 20 MG TAB PO SCH ×2 (08:49→21:00)
[2018-10-09] MEDS: AMLODIPINE 10 MG TAB PO SCH (08:50)
[2018-10-09] MEDS: PIPER-TAZO 2.25 GM (PMX) 50 ML IVPB SCH ×2 (08:50→21:41)
[2018-10-09] MEDS: oxyCODONE (CR) 15 MG TAB [oxyCONTIN] PO SCH ×2 (08:53→21:41)
--- NOTE | 2018-10-09 09:05 | PN ---
DATE: 10/09/2018 SUBJECTIVE: The patient is currently stable, had peritoneal dialysis yesterday, tolerated well appro ximately 1 liter of ultrafiltration. No other events noted. No hemoptysis, hematemesis, or hematoch ezia. OBJECTIVE: VITAL SIGNS: Blood pressure is 117/69, respirations 18, pulse 110, temperature 99.4. HEENT: Head is normocephalic. NECK: Supple. HEART: Regular rate. LUNGS: Show diminished breath sounds at the base. ABDOMEN: Soft, nontender to palpation, positive PD catheter. EXTREMITIES: Negative for clubbing, cyanosis, no edema. DERMATOLOGIC: No rashes. MUSCULOSKELETAL: No joint effusion. NEUROLOGIC: No change in exam. MEDICATIONS: The patient's medications have been reviewed. LABORATORY DATA: Reviewed. ASSESSMENT AND PLAN: 1. End-stage renal disease. The patient is currently on peritoneal dialysis. The patient currently is on 6 cycles of 4.25 dextrose solution with 1.5 liters fill. The patient had approximately 1 lite r of ultrafiltration. The patient is clinically improving. We will continue current PD regimen. 2. Anemia. Continue to monitor hemoglobin and hematocrit levels. Continue Epogen. 3. Mineral bone disorder. The patient remains hypophosphatemic. We will up titrate Renagel to 1600 t.i.d. with meals. 4. Hypertension. Blood pressure is improved. Continue current blood pressure regimen. 5. Loculated pleural effusion. The patient is status post pigtail placement. Follow up with CT [facility] babs. The patient may require VATS. 6. Leukocytosis, likely secondary to pneumonia. The patient's Dianeal solution was negative for mago dence of infection. Continue antibiotic regimen. Follow up cultures. 7. History of intracranial hemorrhage. 8. Seizure disorder. Dictated By: PHILLIP SILVERIO DO NR/NTS Conf#: [id number] DID#: [id number] CC: YOSVANY DSA MD; PHILLIP SILVERIO DO; MARITO BRIGGS MD;*EndCC*
[2018-10-09] MEDS: SEVELAMER CARBONATE 800 MG TABLET PO SCH ×2 (12:34→17:52)
[2018-10-09 13:31] VITALS: BP 108/67; PULSE 117; RESP 18
--- NOTE | 2018-10-09 13:52 | PN ---
Date/Time of Note Date/Time of Note DATE: 10/09/18 TIME: 13:51 Assessment/Plan VTE Prophylaxis Risk score (from Ns)>0 risk: 3 SCD applied (from [facility] [place]): Yes Pharmacological prophylaxis: NA/contraindicated Pharm contraindication: renal impairment Lines/Catheters IV [facility] (from [facility] Saline Lock Urinary Cath still in place: No Assessment/Plan Hospital Course 48 yo female with ESRD on PD with loculated pleural effusion s/p CT - Continue chest tube drainage - VATS consideration per CT surg - Appreciate pulmonary management - Malignancy evaluation ESRD: - PD per renal, patient may require hemodialysis Anemia of CKD: - Transfuse to Hgb 7 - SONIA per renal Prophylaxis: SCDs Result Diagram: 10/09/1852410/09/18524 Results 24hrs Laboratory Tests Test 10/09/18 05:25 10/09/18 07:16 White Blood Count 22.6 H Red Blood Count 3.21 L Hemoglobin 8.7 L Hematocrit 29.0 L Mean Corpuscular Volume 90.3 Mean Corpuscular Hemoglobin 27.1 L Mean Corpuscular Hemoglobin Concent 30.0 L Red Cell Distribution Width 16.9 H Platelet Count 531 H Mean Platelet Volume 10.6 H Immature Granulocytes % 1.100 H Neutrophils % 82.7 H Lymphocytes % 5.1 L Monocytes % 10.3 Eosinophils % 0.4 Basophils % 0.4 Nucleated Red Blood Cells % 0.1 H Immature Granulocytes # 0.250 H Neutrophils # 18.7 H Lymphocytes # 1.2 Monocytes # 2.3 H Eosinophils # 0.1 Basophils # 0.1 Nucleated Red Blood Cells # 0.0 Sodium Level 142 Potassium Level 4.4 Chloride Level 94 L Carbon Dioxide Level 27 Anion Gap 21 H Blood Urea Nitrogen 84 H Creatinine 12.68 H Est Glomerular Filtrat Rate mL/min 3 L Glucose Level 149 Calcium Level 8.7 Phosphorus Level 7.5 H Magnesium Level 2.3 Total Bilirubin 0.0 L Direct Bilirubin 0.00 Indirect Bilirubin 0.0 Aspartate Amino Transf (AST/SGOT) 34 Alanine Aminotransferase (ALT/SGPT) 14 Alkaline Phosphatase 214 H Total Protein 6.6 Albumin 2.8 L Globulin 3.80 H Albumin/Globulin Ratio 0.73 Random Vancomycin Level 22.3 Lab Scanned Report BLOOD TRANSFUSION Subjective 24 Hr Interval Summary Constitutional: no complaints Exam/Review of Systems Exam Vitals Vital Signs Date Temp Pulse Resp B/P (MAP) Pulse Ox O2 O2 Flow FiO2 Time Delivery Rate 10/09/18 98.5 117 18 108/67 94 13:31 (81) 10/09/18 Room Air 08:22 10/09/18 3.0 08:10 Intake and Output 10/08/18 10/08/18 10/09/18 1515:00 23:00 07:00 IntakeIntake Total 140 ml 50 ml OutputOutput Total 1382 ml 40 ml 250 ml BalanceBalance -1382 ml 100 ml -200 ml Constitutional: alert, oriented Respiratory: clear to auscultation Cardiovascular: regular rate and rhythm Gastrointestinal: soft; No distended Musculoskeletal: nl extremities to inspection Results Results 24hrs Laboratory Tests Test 10/09/18 05:25 10/09/18 07:16 White Blood Count 22.6 H Red Blood Count 3.21 L Hemoglobin 8.7 L Hematocrit 29.0 L Mean Corpuscular Volume 90.3 Mean Corpuscular Hemoglobin 27.1 L Mean Corpuscular Hemoglobin Concent 30.0 L Red Cell Distribution Width 16.9 H Platelet Count 531 H Mean Platelet Volume 10.6 H Immature Granulocytes % 1.100 H Neutrophils % 82.7 H Lymphocytes % 5.1 L Monocytes % 10.3 Eosinophils % 0.4 Basophils % 0.4 Nucleated Red Blood Cells % 0.1 H Immature Granulocytes # 0.250 H Neutrophils # 18.7 H Lymphocytes # 1.2 Monocytes # 2.3 H Eosinophils # 0.1 Basophils # 0.1 Nucleated Red Blood Cells # 0.0 Sodium Level 142 Potassium Level 4.4 Chloride Level 94 L Carbon Dioxide Level 27 Anion Gap 21 H Blood Urea Nitrogen 84 H Creatinine 12.68 H Est Glomerular Filtrat Rate mL/min 3 L Glucose Level 149 Calcium Level 8.7 Phosphorus Level 7.5 H Magnesium Level 2.3 Total Bilirubin 0.0 L Direct Bilirubin 0.00 Indirect Bilirubin 0.0 Aspartate Amino Transf (AST/SGOT) 34 Alanine Aminotransferase (ALT/SGPT) 14 Alkaline Phosphatase 214 H Total Protein 6.6 Albumin 2.8 L Globulin 3.80 H Albumin/Globulin Ratio 0.73 Random Vancomycin Level 22.3 Lab Scanned Report BLOOD TRANSFUSION Medications Medication Current Medications IV Flush (NS 3 ml) 3 ml PER PROTOCOL IV Last administered on 10/05/18at 01:29; Admin Dose 3 ML; Start 10/05/18 at 00:30 Ondansetron HCl (Zofran Inj) 4 mg Q6H PRN IV NAUSEA/VOMITING Last administered on 10/09/18 08:45; Admin Dose 4 MG; Start 10/05/18 at 00:30 Acetaminophen (Tylenol Tab) 650 mg Q6H PRN PO .PAIN 1-3 OR TEMP; Start 10/05/18 at 00:30 Docusate Sodium (Colace) 100 mg Q12H PRN PO .CONSTIPATION; Start 10/05/18 at 00:30 Bisacodyl (Dulcolax) 5 mg DAILY PRN PO .CONSTIPATION; Start 10/05/18 at 00:30 Acetaminophen/ Hydrocodone Bitart ([place] (5/325)) 1 tab Q4H PRN PO MODERATE PAIN LEVEL 4-6 Last administered on 10/07/18 04:31; Admin Dose 1 TAB; Start 10/05/18 at 00:30 Morphine Sulfate (morphine) 2 mg Q4H PRN IV SEVERE PAIN LEVEL 7-10 Last administered on 10/09/18 08:45; Admin Dose 2 MG; Start 10/05/18 at 00:38 Hydralazine HCl (Apresoline) 10 mg Q4H PRN IV ELEVATED SYSTOLIC BP Last administered on 10/07/18 06:48; Admin Dose 10 MG; Start 10/05/18 at 01:30 Piperacillin Sod/ Tazobactam Sod 50 ml @ 100 mls/hr Q12 IVPB Last administered on 10/09/18 08:50; Admin Dose 100 MLS/HR; Start 10/05/18 at 10:00 Lisinopril (Zestril) 20 mg BID PO Last administered on 10/09/18 08:49; Admin Dose 20 MG; Start 10/06/18 at 10:00 Amlodipine Besylate (Norvasc) 10 mg DAILY PO Last administered on 10/09/18at 0 8:50; Admin Dose 10 MG; Start 10/07/18 at 09:00 Oxycodone HCl (Oxycontin) 15 mg BID PO Last administered on 10/08/18 21:24; Admin Dose 15 MG; Start 10/06/18 at 18:00 Vancomycin HCl (Vanco Iv Per Pharmacy) VANCOMYCIN PER PHARMACY PER PROTOCOL XX ; Start 10/07/18 at 12:00 Acetaminophen/ Hydrocodone Bitart ([place] (5/325)) 1 tab Q4H PRN PO MODERATE PAIN LEVEL 4-6; Start 10/07/18 at 12:00 Lorazepam (Ativan) 0.5 mg DAILY PRN PO ANXIETY; Start 10/07/18 at 18:30 Diphenhydramine HCl (Benadryl) 25 mg Q6H PRN PO ITCHING Last administered on 10/08/18at 23:53; Admin Dose 25 MG; Start 10/07/18 at 21:00 Sevelamer Carbonate (Renvela) 1,600 mg WITH MEALS PO Last administered on 10/09/18at 12:34; Admin Dose 1,600 MG; Start 10/09/18 at 12:00 Epoetin Timoteo (Epogen (Esrd)) 10,000 units MoWeFr@17 SC ; Start 10/09/18 at 17:00 MARITO BRIGGS Oct 09, 2018 13:52
[2018-10-09] MEDS ORDERED: HEPARIN 1000 UNITS/ML 10 ML INJ IV SCH (15:00)
[2018-10-09] MEDS: EPOETIN 10000 UNITS/1 ML INJ (ESRD) SC SCH (17:54)
[2018-10-09] MEDS ORDERED: HEPARIN 1000 UNITS/ML 10 ML INJ IV ONE (18:30)
[2018-10-09 20:00] VITALS: BP 109/86; PULSE 104; RESP 18
[2018-10-09 20:24] VITALS: BP 109/80; PULSE 104
[2018-10-09] MEDS: DIPHENHYDRAMINE 25 MG CAP PO PRN (22:56)
[2018-10-10 02:00] VITALS: BP 112/60; PULSE 106; RESP 18
[2018-10-10] MEDS: ONDANSETRON 4 MG INJ IV PRN (06:30)
[2018-10-10] MEDS: morphine 2 MG INJ IV PRN ×3 (06:30→21:26)
[2018-10-10 08:11] VITALS: BP 139/80; PULSE 114
[2018-10-10 08:26] VITALS: BP 139/80; PULSE 114; RESP 18
[2018-10-10] MEDS: oxyCODONE (CR) 15 MG TAB [oxyCONTIN] PO SCH ×2 (08:28→21:24)
[2018-10-10] MEDS: SEVELAMER CARBONATE 800 MG TABLET PO SCH ×3 (08:28→17:05)
[2018-10-10] MEDS: LISINOPRIL 20 MG TAB PO SCH ×2 (08:29→21:25)
[2018-10-10] MEDS: AMLODIPINE 10 MG TAB PO SCH (08:29)
[2018-10-10] MEDS: PIPER-TAZO 2.25 GM (PMX) 50 ML IVPB SCH ×2 (08:31→21:37)
[2018-10-10] MEDS ORDERED: VANCOMYCIN 1 GM 250 ML IVPB SCH (09:00)
--- NOTE | 2018-10-10 09:20 | PN ---
DATE: 10/10/2018 SUBJECTIVE: The patient remains stable. No events overnight. The patient had tolerated peritoneal dialysis with approximately 1 liter removed through ultrafiltration. OBJECTIVE: VITAL SIGNS: Blood pressure is 139/80, pulse 114, respirations 18, temperature 98.0. HEENT: Head is normocephalic. NECK: Supple. HEART: Regular rate. LUNGS: Show diminished breath sounds at the base. ABDOMEN: Soft, nontender to palpation without rebound or guarding. EXTREMITIES: Negative for clubbing, cyanosis, no edema. DERMATOLOGIC: No rashes. MUSCULOSKELETAL: No joint effusion. NEUROLOGIC: No change in exam. MEDICATIONS: Reviewed. LABORATORY DATA: From 10/10/2018 was reviewed. ASSESSMENT AND PLAN: 1. End-stage renal disease. The patient is currently tolerating peritoneal dialysis well. There is no need for hemodialysis at this time. Plan is to continue current treatment plan. Continue 6 cycl es of 4.25% dextrose solution with 1.8 liter filled. Anticipate ultrafiltration approximately 1 lite r. Continue to monitor closely. 2. Anemia. Monitor hemoglobin and hematocrit levels. Continue Epogen. 3. Mineral bone disorder. Monitor calcium and phosphorus levels. Continue phosphate binders. 4. Hypertension. Continue blood pressure regimen. Continue ultrafiltration with dialysis. 5. Loculated pleural effusion. The patient is status post pigtail placement. Continue to monitor. Follow up with CT surgery. The patient may require VATS. 6. Leukocytosis secondary to pneumonia. Continue antibiotic regimen. 7. History of intracranial hemorrhage. 8. Seizure disorder. Dictated By: PHILLIP SILVERIO DO NR/NTS Conf#: [id number] DID#: [id number] CC: YOSVANY DAS MD; PHILLIP SILVERIO DO; MARITO BRIGGS MD;*EndCC*
[2018-10-10] MEDS: DIPHENHYDRAMINE 25 MG CAP PO PRN (10:05)
--- NOTE | 2018-10-10 12:20 | CONS ---
Assessment/Plan Assessment/Plan Assessment/Plan (Daily) Assessment and recommendations; 1. Patient admitted with right upper lobe pneumonia with complicated right parapneumonic effusion possibly empyema. Currently on appropriate antimicrobial regimen. 2. History of chronic renal failure, on hemodialysis. 3. Mild improvement in leukocytosis. Continue current supportive care. Obtain follow-up chest x-ray. Patient possibly may require VATS. Consultation Date/Type/Reason Admit Date/Time Oct 04, 2018 at 23:55 Initial Consult Date 10/06/18 Type of Consult Pulmonary Date/Time of Note DATE: 10/10/18 TIME: 12:19 24 HR Interval Summary Free Text/Dictation Patient's condition is stable. Denies any shortness of breath, chest pain, coughing, sputum production or fever. General exam; young female, awake alert, currently in no distress. Exam/Review of Systems Exam Vitals Vital Signs Date Temp Pulse Resp B/P (MAP) Pulse Ox O2 O2 Flow FiO2 Time Delivery Rate 10/10/18 98.8 114 18 139/80 93 Room Air 08:26 (99) 10/09/18 3.0 20:20 Intake and Output 10/09/18 10/09/18 10/10/18 1515:00 23:00 07:00 IntakeIntake Total 890 ml 290 ml OutputOutput Total 2392 ml BalanceBalance -1502 ml 290 ml Exam H EENT exam; supple neck, no JVD. No lymphadenopathy. Midline trachea. No thyromegaly. Patient has fair dentition. Chest exam; diminished breath sounds right lower lobe right pleural catheter in place. S1-S2 audible, no murmurs. Regular rhythm. Abdomen exam; soft, nontender. No organomegaly. Bowel sounds audible. Extremity exam; peripheral edema clubbing. [employer] exam; no focal deficit. Results Result Diagram: 10/10/18 0531 10/10/18 0531 Results 24hrs Laboratory Tests Test 10/10/18 05:31 White Blood Count 19.5 H Red Blood Count 3.31 L Hemoglobin 8.9 L Hematocrit 29.6 L Mean Corpuscular Volume 89.4 Mean Corpuscular Hemoglobin 26.9 L Mean Corpuscular Hemoglobin Concent 30.1 L Red Cell Distribution Width 17.0 H Platelet Count 548 H Mean Platelet Volume 10.7 H Immature Granulocytes % 1.000 H Neutrophils % 75.2 Lymphocytes % 10.5 L Monocytes % 11.7 H Eosinophils % 1.0 Basophils % 0.6 Nucleated Red Blood Cells % 0.0 Immature Granulocytes # 0.200 H Neutrophils # 14.6 H Lymphocytes # 2.1 Monocytes # 2.3 H Eosinophils # 0.2 Basophils # 0.1 Nucleated Red Blood Cells # 0.0 Sodium Level 143 Potassium Level 3.9 Chloride Level 93 L Carbon Dioxide Level 29 Anion Gap 21 H Blood Urea Nitrogen 82 H Creatinine 12.46 H Est Glomerular Filtrat Rate mL/min 3 L Glucose Level 148 Calcium Level 8.6 Phosphorus Level 7.0 H Magnesium Level 2.3 Medications Medication Current Medications IV Flush (NS 3 ml) 3 ml PER PROTOCOL IV Last administered on 10/05/18 01:29; Admin Dose 3 ML; Start 10/05/18 at 00:30 Ondansetron HCl (Zofran Inj) 4 mg Q6H PRN IV NAUSEA/VOMITING Last administered on 10/10/18 06:30; Admin Dose 4 MG; Start 10/05/18 at 00:30 Acetaminophen (Tylenol Tab) 650 mg Q6H PRN PO .PAIN 1-3 OR TEMP; Start 10/05/18 at 00:30 Docusate Sodium (Colace) 100 mg Q12H PRN PO .CONSTIPATION; Start 10/05/18 at 00:30 Bisacodyl (Dulcolax) 5 mg DAILY PRN PO .CONSTIPATION; Start 10/05/18 at 00:30 Acetaminophen/ Hydrocodone Bitart ([place] (5/325)) 1 tab Q4H PRN PO MODERATE PAIN LEVEL 4-6 Last administered on 10/07/18 04:31; Admin Dose 1 TAB; Start 10/05/18 at 00:30 Morphine Sulfate (morphine) 2 mg Q4H PRN IV SEVERE PAIN LEVEL 7-10 Last administered on 10/10/18 06:30; Admin Dose 2 MG; Start 10/05/18 at 00:38 Hydralazine HCl (Apresoline) 10 mg Q4H PRN IV ELEVATED SYSTOLIC BP Last administered on 10/07/18 06:48; Admin Dose 10 MG; Start 10/05/18 at 01:30 Piperacillin Sod/ Tazobactam Sod 50 ml @ 100 mls/hr Q12 IVPB Last administered on 10/10/18 08:31; Admin Dose 100 MLS/HR; Start 10/05/18 at 10:00 Lisinopril (Zestril) 20 mg BID PO Last administered on 10/10/18 08:29; Admin Dose 20 MG; Start 10/06/18 at 10:00 Amlodipine Besylate (Norvasc) 10 mg DAILY PO Last administered on 10/10/18 08:29; Admin Dose 10 MG; Start 10/07/18 at 09:00 Oxycodone HCl (Oxycontin) 15 mg BID PO Last administered on 10/10/18 08:28; Admin Dose 15 MG; Start 10/06/18 at 18:00 Vancomycin HCl (Vanco Iv Per Pharmacy) VANCOMYCIN PER PHARMACY PER PROTOCOL XX ; Start 10/07/18 at 12:00 Acetaminophen/ Hydrocodone Bitart ([place] (5/325)) 1 tab Q4H PRN PO MODERATE P AIN LEVEL 4-6; Start 10/07/18 at 12:00 Lorazepam (Ativan) 0.5 mg DAILY PRN PO ANXIETY; Start 10/07/18 at 18:30 Diphenhydramine HCl (Benadryl) 25 mg Q6H PRN PO ITCHING Last administered on 10/10/18 10:05; Admin Dose 25 MG; Start 10/07/18 at 21:00 Sevelamer Carbonate (Renvela) 1,600 mg WITH MEALS PO Last administered on 10/10/18 12:09; Admin Dose 1,600 MG; Start 10/09/18 at 12:00 Epoetin Timoteo (Epogen (Esrd)) 10,000 units MoWeFr@17 SC Last administered on 10/09/18 17:54; Admin Dose 10,000 UNITS; Start 10/09/18 at 17:00 ALONDRA KEENAN Oct 10, 2018 12:20
--- NOTE | 2018-10-10 14:41 | PN ---
Date/Time of Note Date/Time of Note DATE: 10/10/18 TIME: 14:37 Assessment/Plan VTE Prophylaxis Risk score (from Ns)>0 risk: 4 SCD applied (from [facility] [place]): Yes Pharmacological prophylaxis: NA/contraindicated Pharm contraindication: renal impairment Lines/Catheters IV Catheter Type (from [facility]): Saline Lock Urinary Cath still in place: No Assessment/Plan Hospital Course 48 yo female with ESRD on PD with loculated pleural effusion s/p CT - Continue chest tube drainage - VATS consideration per CT surg but will try to avoid surgery - Appreciate pulmonary management - Malignancy evaluation ESRD: - PD per renal, patient may require hemodialysis Anemia of CKD: - Transfuse to Hgb 7 - SONIA per renal Prophylaxis: SCDs Result Diagram: 10/10/1853010/10/1831 Results 24hrs Laboratory Tests Test 10/10/18 05:31 White Blood Count 19.5 H Red Blood Count 3.31 L Hemoglobin 8.9 L Hematocrit 29.6 L Mean Corpuscular Volume 89.4 Mean Corpuscular Hemoglobin 26.9 L Mean Corpuscular Hemoglobin Concent 30.1 L Red Cell Distribution Width 17.0 H Platelet Count 548 H Mean Platelet Volume 10.7 H Immature Granulocytes % 1.000 H Neutrophils % 75.2 Lymphocytes % 10.5 L Monocytes % 11.7 H Eosinophils % 1.0 Basophils % 0.6 Nucleated Red Blood Cells % 0.0 Immature Granulocytes # 0.200 H Neutrophils # 14.6 H Lymphocytes # 2.1 Monocytes # 2.3 H Eosinophils # 0.2 Basophils # 0.1 Nucleated Red Blood Cells # 0.0 Sodium Level 143 Potassium Level 3.9 Chloride Level 93 L Carbon Dioxide Level 29 Anion Gap 21 H Blood Urea Nitrogen 82 H Creatinine 12.46 H Est Glomerular Filtrat Rate mL/min 3 L Glucose Level 148 Calcium Level 8.6 Phosphorus Level 7.0 H Magnesium Level 2.3 Subjective 24 Hr Interval Summary Constitutional: no complaints Exam/Review of Systems Exam Vitals Vital Signs Date Temp Pulse Resp B/P (MAP) Pulse Ox O2 O2 Flow FiO2 Time Delivery Rate 10/10/18 98.8 114 18 139/80 93 Room Air 08:26 (99) 10/09/18 3.0 20:20 Intake and Output 10/09/18 10/09/18 10/10/18 1515:00 23:00 07:00 IntakeIntake Total 890 ml 290 ml OutputOutput Total 2392 ml BalanceBalance -1502 ml 290 ml Constitutional: alert Respiratory: clear to auscultation Cardiovascular: regular rate and rhythm Gastrointestinal: soft; No distended Musculoskeletal: nl extremities to inspection Results Results 24hrs Laboratory Tests Test 10/10/18 05:31 White Blood Count 19.5 H Red Blood Count 3.31 L Hemoglobin 8.9 L Hematocrit 29.6 L Mean Corpuscular Volume 89.4 Mean Corpuscular Hemoglobin 26.9 L Mean Corpuscular Hemoglobin Concent 30.1 L Red Cell Distribution Width 17.0 H Platelet Count 548 H Mean Platelet Volume 10.7 H Immature Granulocytes % 1.000 H Neutrophils % 75.2 Lymphocytes % 10.5 L Monocytes % 11.7 H Eosinophils % 1.0 Basophils % 0.6 Nucleated Red Blood Cells % 0.0 Immature Granulocytes # 0.200 H Neutrophils # 14.6 H Lymphocytes # 2.1 Monocytes # 2.3 H Eosinophils # 0.2 Basophils # 0.1 Nucleated Red Blood Cells # 0.0 Sodium Level 143 Potassium Level 3.9 Chloride Level 93 L Carbon Dioxide Level 29 Anion Gap 21 H Blood Urea Nitrogen 82 H Creatinine 12.46 H Est Glomerular Filtrat Rate mL/min 3 L Glucose Level 148 Calcium Level 8.6 Phosphorus Level 7.0 H Magnesium Level 2.3 Medications Medication Current Medications IV Flush (NS 3 ml) 3 ml PER PROTOCOL IV Last administered on 10/05/18at 01:29; Admin Dose 3 ML; Start 10/05/18 at 00:30 Ondansetron HCl (Zofran Inj) 4 mg Q6H PRN IV NAUSEA/VOMITING Last administered on 10/10/18at 06:30; Admin Dose 4 MG; Start 10/05/18 at 00:30 Acetaminophen (Tylenol Tab) 650 mg Q6H PRN PO .PAIN 1-3 OR TEMP; Start 10/05/18 at 00:30 Docusate Sodium (Colace) 100 mg Q12H PRN PO .CONSTIPATION; Start 10/05/18 at 00:30 Bisacodyl (Dulcolax) 5 mg DAILY PRN PO .CONSTIPATION; Start 10/05/18 at 00:30 Acetaminophen/ Hydrocodone Bitart ([place] (5/325)) 1 tab Q4H PRN PO MODERATE PAIN LEVEL 4-6 Last administered on 10/07/18 04:31; Admin Dose 1 TAB; Start 10/05/18 at 00:30 Morphine Sulfate (morphine) 2 mg Q4H PRN IV SEVERE PAIN LEVEL 7-10 Last administered on 10/10/18 06:30; Admin Dose 2 MG; Start 10/05/18 at 00:38 Hydralazine HCl (Apresoline) 10 mg Q4H PRN IV ELEVATED SYSTOLIC BP Last administered on 10/07/18 06:48; Admin Dose 10 MG; Start 10/05/18 at 01:30 Piperacillin Sod/ Tazobactam Sod 50 ml @ 100 mls/hr Q12 IVPB Last administered on 10/10/18 08:31; Admin Dose 100 MLS/HR; Start 10/05/18 at 10:00 Lisinopril (Zestril) 20 mg BID PO Last administered on 10/10/18 08:29; Admin Dose 20 MG; Start 10/06/18 at 10:00 Amlodipine Besylate (Norvasc) 10 mg DAILY PO Last administered on 10/10/18 08:29; Admin Dose 10 MG; Start 10/07/18 at 09:00 Oxycodone HCl (Oxycontin) 15 mg BID PO Last administered on 10/10/18 08:28; Admin Dose 15 MG; Start 10/06/18 at 18:00 Vancomycin HCl (Vanco Iv Per Pharmacy) VANCOMYCIN PER PHARMACY PER PROTOCOL XX ; Start 10/07/18 at 12:00 Acetaminophen/ Hydrocodone Bitart ([place] (5/325)) 1 tab Q4H PRN PO MODERATE PAIN LEVEL 4-6; Start 10/07/18 at 12:00 Lorazepam (Ativan) 0.5 mg DAILY PRN PO ANXIETY; Start 10/07/18 at 18:30 Diphenhydramine HCl (Benadryl) 25 mg Q6H PRN PO ITCHING Last administered on 10/10/18 10:05; Admin Dose 25 MG; Start 10/07/18 at 21:00 Sevelamer Carbonate (Renvela) 1,600 mg WITH MEALS PO Last administered on 10/10/18 12:09; Admin Dose 1,600 MG; Start 10/09/18 at 12:00 Epoetin Timoteo (Epogen (Esrd)) 10,000 units MoWeFr@17 SC Last administered on 10/09/18at 17:54; Admin Dose 10,000 UNITS; Start 10/09/18 at 17:00 MARITO BRIGGS Oct 10, 2018 14:41
[2018-10-10 14:50] VITALS: BP 143/81; PULSE 120; RESP 18
[2018-10-10] MEDS: PANTOPRAZOLE (EC) 40 MG TAB PO SCH (18:47)
[2018-10-10 19:29] VITALS: BP 118/69; PULSE 117; RESP 16
[2018-10-10 20:58] VITALS: BP 119/78; PULSE 111
[2018-10-10] MEDS ORDERED: METOCLOPRAMIDE 10 MG INJ IV ONE (21:00)
[2018-10-11] VITALS (9 sets, daily range): BP systolic 104–138; BP diastolic 63–78; PULSE 85–124; RESP 16–18
[2018-10-11] MEDS: morphine 2 MG INJ IV PRN ×4 (01:29→20:33)
[2018-10-11] MEDS: PANTOPRAZOLE (EC) 40 MG TAB PO SCH (05:32)
[2018-10-11] MEDS: SEVELAMER CARBONATE 800 MG TABLET PO SCH ×3 (08:48→18:02)
[2018-10-11] MEDS: oxyCODONE (CR) 15 MG TAB [oxyCONTIN] PO SCH ×2 (08:50→20:32)
[2018-10-11] MEDS: LISINOPRIL 20 MG TAB PO SCH ×2 (08:51→20:32)
[2018-10-11] MEDS: AMLODIPINE 10 MG TAB PO SCH (08:51)
[2018-10-11] MEDS: PIPER-TAZO 2.25 GM (PMX) 50 ML IVPB SCH ×2 (08:54→20:32)
--- NOTE | 2018-10-11 09:18 | PN ---
DATE: 10/11/2018 SUBJECTIVE: The patient is complaining about GERD type symptoms. The patient feels mildly swollen. No other events noted. OBJECTIVE: VITAL SIGNS: Blood pressure is 107/70, respirations 16, pulse 129, temperature 99.0. HEENT: Head is normocephalic. NECK: Supple. HEART: Regular rate. LUNGS: Show diminished breath sounds at the base. ABDOMEN: Soft, nontender to palpation. No rebound or guarding. EXTREMITIES: Negative for clubbing, cyanosis. Trace edema. DERMATOLOGIC: No rashes. MUSCULOSKELETAL: No joint effusion. NEUROLOGIC: No change in exam. MEDICATIONS: Reviewed. LABORATORY DATA: From 10/11/2018 has been reviewed. ASSESSMENT AND PLAN: 1. End-stage renal disease. The patient is currently on peritoneal dialysis. We will continue curr ent regimen of PD with 6 cycles of 4.25% dextrose solution with 1.8 liter fill. The patient's ultraf iltration was approximately 450 mL last night. We will continue to monitor closely. If ultrafiltrat ion does not improve, we may consider increasing the number of cycles. The patient does not wish to return to hemodialysis. 2. Anemia. Monitor hemoglobin and hematocrit levels, we will transfuse PRBCs as needed. Continue E pogen. 3. Mineral bone disorder. Monitor calcium and phosphorus levels. Continue phosphate binders. 4. Hypertension. Blood pressure controlled. Continue blood pressure regimen. Continue ultrafiltra tion with dialysis. 5. Pleural effusion, status post pigtail placement. We will follow up with CT surgery. May require VATS. 6. Leukocytosis secondary to pneumonia. Continue current antibiotic regimen. 7. History of intracranial hemorrhage. 8. Seizure disorder. Dictated By: PHILLIP SILVERIO DO NR/NTS Conf#: [id number] DID#: [id number] CC: YOSVANY DAS MD; MARITO BRIGGS MD; PHILLIP SILVERIO DO;*EndCC*
--- NOTE | 2018-10-11 10:52 | CONS ---
Assessment/Plan Assessment/Plan Assessment/Plan (Daily) Chest x-ray was reviewed from yesterday which is again showing bilateral loculated pleural effusions. Assessment recommendations; 1. Patient admitted with shortness of breath due to complicated bilateral pleural effusions status post pigtail catheter placement without any further drainage. Clinically improving. 2. Chronic renal failure, on hemodialysis. Consider discharge on oral antibiotics at least for 4-weeks. Levaquin with doxycycline. Obtain CXR in about 3-4 weeks time. Since the patient is improving clinically and because of lack of demarcation between the pleura and lung parenchyma, patient would be at high risk for VATS procedure at this time. Consultation Date/Type/Reason Admit Date/Time Oct 04, 2018 at 23:55 Initial Consult Date 10/06/18 Type of Consult Pulmonary Date/Time of Note DATE: 10/11/18 TIME: 10:49 24 HR Interval Summary Free Text/Dictation Patient's condition is stable. Denies any chest pain, wheezing, cough, sputum production, fever or chills. General exam; young female, awake alert, currently in no distress. Exam/Review of Systems Exam Vitals Vital Signs Date Temp Pulse Resp B/P (MAP) Pulse Ox O2 O2 Flow FiO2 Time Delivery Rate 10/11/18 Nasal 09:35 Cannula 10/11/18 112 18 138/78 09:30 (98) 10/11/18 99.0 97 07:24 10/10/18 3.0 20:00 Intake and Output 10/10/18 10/10/18 10/11/18 1515:00 23:00 07:00 IntakeIntake Total 360 ml 240 ml 50 ml OutputOutput Total 1822 ml 120 ml BalanceBalance -1462 ml 120 ml 50 ml Exam H EENT exam; supple neck, no JVD. No lymphadenopathy. Midline trachea. No thyromegaly. Patient has fair dentition. No neck masses. Chest exam; diminished breath sound lung bases. Right pleural catheter in place. Bowel S1-S2 audible, no murmurs. Regular rhythm. Abdomen exam; soft, nontender. Bowel sounds audible. Extremity exam; no peripheral edema. 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 Results Result Diagram: 10/11/18 0453 10/11/18 0453 Results 24hrs Laboratory Tests Test 10/11/18 04:53 White Blood Count 16.2 H Red Blood Count 2.85 L Hemoglobin 7.6 L Hematocrit 25.6 L Mean Corpuscular Volume 89.8 Mean Corpuscular Hemoglobin 26.7 L Mean Corpuscular Hemoglobin Concent 29.7 L Red Cell Distribution Width 16.9 H Platelet Count 506 H Mean Platelet Volume 10.8 H Immature Granulocytes % 1.200 H Neutrophils % 76.0 Lymphocytes % 9.0 L Monocytes % 12.2 H Eosinophils % 1.1 Basophils % 0.5 Nucleated Red Blood Cells % 0.0 Immature Granulocytes # 0.190 H Neutrophils # 12.3 H Lymphocytes # 1.5 Monocytes # 2.0 H Eosinophils # 0.2 Basophils # 0.1 Nucleated Red Blood Cells # 0.0 Sodium Level 141 Potassium Level 3.8 Chloride Level 91 L Carbon Dioxide Level 29 Anion Gap 21 H Blood Urea Nitrogen 72 H Creatinine 11.96 H Est Glomerular Filtrat Rate mL/min 3 L Glucose Level 147 Calcium Level 8.4 Phosphorus Level 6.4 H Magnesium Level 2.2 Medications Medication Current Medications IV Flush (NS 3 ml) 3 ml PER PROTOCOL IV Last administered on 10/05/18 01:29; Admin Dose 3 ML; Start 10/05/18 at 00:30 Ondansetron HCl (Zofran Inj) 4 mg Q6H PRN IV NAUSEA/VOMITING Last administered on 10/10/18 06:30; Admin Dose 4 MG; Start 10/05/18 at 00:30 Acetaminophen (Tylenol Tab) 650 mg Q6H PRN PO .PAIN 1-3 OR TEMP; Start 10/05/18 at 00:30 Docusate Sodium (Colace) 100 mg Q12H PRN PO .CONSTIPATION; Start 10/05/18 at 00:30 Bisacodyl (Dulcolax) 5 mg DAILY PRN PO .CONSTIPATION; Start 10/05/18 at 00:30 Acetaminophen/ Hydrocodone Bitart ([place] (5/325)) 1 tab Q4H PRN PO MODERATE PAIN LEVEL 4-6 Last administered on 10/07/18 04:31; Admin Dose 1 TAB; Start 10/05/18 at 00:30 Morphine Sulfate (morphine) 2 mg Q4H PRN IV SEVERE PAIN LEVEL 7-10 Last administered on 10/11/18 05:31; Admin Dose 2 MG; Start 10/05/18 at 00:38 Hydralazine HCl (Apresoline) 10 mg Q4H PRN IV ELEVATED SYSTOLIC BP Last administered on 10/07/18 06:48; Admin Dose 10 MG; Start 10/05/18 at 01:30 Piperacillin Sod/ Tazobactam Sod 50 ml @ 100 mls/hr Q12 IVPB Last administered on 10/11/18 08:54; Admin Dose 100 MLS/HR; Start 10/05/18 at 10:00 Lisinopril (Zestril) 20 mg BID PO Last administered on 10/11/18 08:51; Admin Dose 20 MG; Start 10/06/18 at 10:00 Amlodipine Besylate (Norvasc) 10 mg DAILY PO Last administered on 10/11/18 08:51; Admin Dose 10 MG; Start 10/07/18 at 09:00 Oxycodone HCl (Oxycontin) 15 mg BID PO Last administered on 10/11/18 08:50; Admin Dose 15 MG; Start 10/06/18 at 18:00 Vancomycin HCl (Vanco Iv Per Pharmacy) VANCOMYCIN PER PHARMACY PER PROTOCOL XX ; Start 10/07/18 at 12:00 Acetaminophen/ Hydrocodone Bitart ([place] (5/325)) 1 tab Q4H PRN PO MODERATE PAIN LEVEL 4-6; Start 10/07/18 at 12:00 Lorazepam (Ativan) 0.5 mg DAILY PRN PO ANXIETY; Start 10/07/18 at 18:30 Diphenhydramine HCl (Benadryl) 25 mg Q6H PRN PO ITCHING Last administered on 10/10/18at 10:05; Admin Dose 25 MG; Start 10/07/18 at 21:00 Sevelamer Carbonate (Renvela) 1,600 mg WITH MEALS PO Last administered on 10/11/18 08:48; Admin Dose 1,600 MG; Start 10/09/18 at 12:00 Epoetin Timoteo (Epogen (Esrd)) 10,000 units MoWeFr@17 SC Last administered on 10/09/18 17:54; Admin Dose 10,000 UNITS; Start 10/09/18 at 17:00 Pantoprazole (Protonix Tab) 40 mg DAILY@06 PO Last administered on 10/11/18 05:32; Admin Dose 40 MG; Start 10/10/18 at 19:00 ALONDRA KEENAN Oct 11, 2018 10:52
--- NOTE | 2018-10-11 16:05 | PN ---
Date/Time of Note Date/Time of Note DATE: 10/11/18 TIME: 16:04 Assessment/Plan VTE Prophylaxis Risk score (from Ns)>0 risk: 3 SCD applied (from Ns): Yes Pharmacological prophylaxis: NA/contraindicated Pharm contraindication: renal impairment Lines/Catheters IV [facility]ter [facility] (from [facility] Saline Lock Urinary Cath still in place: No Assessment/Plan Hospital Course 48 yo female with ESRD on PD with loculated pleural effusion s/p CT - Continue chest tube drainage -VATS not indicated per pulmonology, CT surgery to remove chest tubes likely today - Appreciate pulmonary management - Malignancy evaluation ESRD: - PD per renal, patient may require hemodialysis Anemia of CKD: - Transfuse to Hgb 7 - SONIA per renal Prophylaxis: SCDs Result Diagram: 10/11/183 10/11/18 0453 Results 24hrs Laboratory Tests Test 10/11/18 04:53 White Blood Count 16.2 H Red Blood Count 2.85 L Hemoglobin 7.6 L Hematocrit 25.6 L Mean Corpuscular Volume 89.8 Mean Corpuscular Hemoglobin 26.7 L Mean Corpuscular Hemoglobin Concent 29.7 L Red Cell Distribution Width 16.9 H Platelet Count 506 H Mean Platelet Volume 10.8 H Immature Granulocytes % 1.200 H Neutrophils % 76.0 Lymphocytes % 9.0 L Monocytes % 12.2 H Eosinophils % 1.1 Basophils % 0.5 Nucleated Red Blood Cells % 0.0 Immature Granulocytes # 0.190 H Neutrophils # 12.3 H Lymphocytes # 1.5 Monocytes # 2.0 H Eosinophils # 0.2 Basophils # 0.1 Nucleated Red Blood Cells # 0.0 Sodium Level 141 Potassium Level 3.8 Chloride Level 91 L Carbon Dioxide Level 29 Anion Gap 21 H Blood Urea Nitrogen 72 H Creatinine 11.96 H Est Glomerular Filtrat Rate mL/min 3 L Glucose Level 147 Calcium Level 8.4 Phosphorus Level 6.4 H Magnesium Level 2.2 Subjective 24 Hr Interval Summary Constitutional: no complaints Exam/Review of Systems Exam Vitals Vital Signs Date Temp Pulse Resp B/P (MAP) Pulse Ox O2 O2 Flow FiO2 Time Delivery Rate 10/11/18 98.9 108 18 121/68 95 Room Air 14:53 (85) 10/10/18 3.0 20:00 Intake and Output 10/10/18 10/10/18 10/11/18 1515:00 23:00 07:00 IntakeIntake Total 360 ml 240 ml 50 ml OutputOutput Total 1822 ml 120 ml BalanceBalance -1462 ml 120 ml 50 ml Constitutional: alert, oriented Respiratory: clear to auscultation Cardiovascular: regular rate and rhythm Gastrointestinal: soft; No distended Musculoskeletal: nl extremities to inspection Results Results 24hrs Laboratory Tests Test 10/11/18 04:53 White Blood Count 16.2 H Red Blood Count 2.85 L Hemoglobin 7.6 L Hematocrit 25.6 L Mean Corpuscular Volume 89.8 Mean Corpuscular Hemoglobin 26.7 L Mean Corpuscular Hemoglobin Concent 29.7 L Red Cell Distribution Width 16.9 H Platelet Count 506 H Mean Platelet Volume 10.8 H Immature Granulocytes % 1.200 H Neutrophils % 76.0 Lymphocytes % 9.0 L Monocytes % 12.2 H Eosinophils % 1.1 Basophils % 0.5 Nucleated Red Blood Cells % 0.0 Immature Granulocytes # 0.190 H Neutrophils # 12.3 H Lymphocytes # 1.5 Monocytes # 2.0 H Eosinophils # 0.2 Basophils # 0.1 Nucleated Red Blood Cells # 0.0 Sodium Level 141 Potassium Level 3.8 Chloride Level 91 L Carbon Dioxide Level 29 Anion Gap 21 H Blood Urea Nitrogen 72 H Creatinine 11.96 H Est Glomerular Filtrat Rate mL/min 3 L Glucose Level 147 Calcium Level 8.4 Phosphorus Level 6.4 H Magnesium Level 2.2 Medications Medication Current Medications IV Flush (NS 3 ml) 3 ml PER PROTOCOL IV Last administered on 10/05/18at 01:29; Admin Dose 3 ML; Start 10/05/18 at 00:30 Ondansetron HCl (Zofran Inj) 4 mg Q6H PRN IV NAUSEA/VOMITING Last administered on 10/10/18at 06:30; Admin Dose 4 MG; Start 10/05/18 at 00:30 Acetaminophen (Tylenol Tab) 650 mg Q6H PRN PO .PAIN 1-3 OR TEMP; Start 10/05/18 at 00:30 Docusate Sodium (Colace) 100 mg Q12H PRN PO .CONSTIPATION; Start 10/05/18 at 00:30 Bisacodyl (Dulcolax) 5 mg DAILY PRN PO .CONSTIPATION; Start 10/05/18 at 00:30 Acetaminophen/ Hydrocodone Bitart ([place] (5/325)) 1 tab Q4H PRN PO MODERATE PAIN LEVEL 4-6 Last administered on 10/07/18 04:31; Admin Dose 1 TAB; Start 10/05/18 at 00:30 Morphine Sulfate (morphine) 2 mg Q4H PRN IV SEVERE PAIN LEVEL 7-10 Last administered on 10/11/18 11:32; Admin Dose 2 MG; Start 10/05/18 at 00:38 Hydralazine HCl (Apresoline) 10 mg Q4H PRN IV ELEVATED SYSTOLIC BP Last administered on 10/07/18 06:48; Admin Dose 10 MG; Start 10/05/18 at 01:30 Piperacillin Sod/ Tazobactam Sod 50 ml @ 100 mls/hr Q12 IVPB Last administered on 10/11/18 08:54; Admin Dose 100 MLS/HR; Start 10/05/18 at 10:00 Lisinopril (Zestril) 20 mg BID PO Last administered on 10/11/18 08:51; Admin Dose 20 MG; Start 10/06/18 at 10:00 Amlodipine Besylate (Norvasc) 10 mg DAILY PO Last administered on 10/11/18 08:51; Admin Dose 10 MG; Start 10/07/18 at 09:00 Oxycodone HCl (Oxycontin) 15 mg BID PO Last administered on 10/11/18 08:50; Admin Dose 15 MG; Start 10/06/18 at 18:00 Vancomycin HCl (Vanco Iv Per Pharmacy) VANCOMYCIN PER PHARMACY PER PROTOCOL XX ; Start 10/07/18 at 12:00 Acetaminophen/ Hydrocodone Bitart ([place] (5/325)) 1 tab Q4H PRN PO MODERATE PAIN LEVEL 4-6; Start 10/07/18 at 12:00 Lorazepam (Ativan) 0.5 mg DAILY PRN PO ANXIETY; Start 10/07/18 at 18:30 Diphenhydramine HCl (Benadryl) 25 mg Q6H PRN PO ITCHING Last administered on 10/10/18 10:05; Admin Dose 25 MG; Start 10/07/18 at 21:00 Sevelamer Carbonate (Renvela) 1,600 mg WITH MEALS PO Last administered on 10/11/18 13:19; Admin Dose 1,600 MG; Start 10/09/18 at 12:00 Epoetin Timoteo (Epogen (Esrd)) 10,000 units MoWeFr@17 SC Last administered on 10/09/18at 17:54; Admin Dose 10,000 UNITS; Start 10/09/18 at 17:00 Pantoprazole (Protonix Tab) 40 mg DAILY@06 PO Last administered on 10/11/18at 05:32; Admin Dose 40 MG; Start 10/10/18 at 19:00 MARITO BRIGGS Oct 11, 2018 16:05
[2018-10-11] MEDS: DIPHENHYDRAMINE 25 MG CAP PO PRN (16:25)
[2018-10-11] MEDS: EPOETIN 10000 UNITS/1 ML INJ (ESRD) SC SCH (18:22)
[2018-10-12 02:30] VITALS: BP 122/82; PULSE 123; RESP 16
[2018-10-12] MEDS: PANTOPRAZOLE (EC) 40 MG TAB PO SCH (05:47)
[2018-10-12 07:42] VITALS: BP 100/56; PULSE 118; RESP 18
[2018-10-12 08:00] VITALS: BP 118/69; PULSE 116
[2018-10-12] MEDS: AMLODIPINE 10 MG TAB PO SCH (08:47)
[2018-10-12] MEDS: SEVELAMER CARBONATE 800 MG TABLET PO SCH ×3 (08:47→19:21)
[2018-10-12] MEDS: LISINOPRIL 20 MG TAB PO SCH ×2 (08:47→22:01)
[2018-10-12] MEDS: oxyCODONE (CR) 15 MG TAB [oxyCONTIN] PO SCH ×3 (08:48→22:00)
[2018-10-12] MEDS: PIPER-TAZO 2.25 GM (PMX) 50 ML IVPB SCH ×2 (08:48→22:00)
[2018-10-12] MEDS: morphine 2 MG INJ IV PRN ×2 (09:43→15:09)
--- NOTE | 2018-10-12 09:56 | PN ---
Date/Time of Note Date/Time of Note DATE: 10/12/18 TIME: 09:55 Assessment/Plan VTE Prophylaxis Risk score (from Nsg)>0 risk: 3 SCD applied (from Ns): No SCD contraindicated: other Pharmacological prophylaxis: other Lines/Catheters IV [facility]from [facility] Saline Lock Urinary Cath still in place: No Assessment/Plan Hospital Course renal follow up SUBJECTIVE: The patient is complaining of pain around the chest tube site. The patient feels mildly swollen. No other events noted. OBJECTIVE: HEENT: Head is normocephalic. NECK: Supple. HEART: Regular rate. LUNGS: Show diminished breath sounds at the base. ABDOMEN: Soft, nontender to palpation. No rebound or guarding. EXTREMITIES: Negative for clubbing, cyanosis. Trace edema. DERMATOLOGIC: No rashes. MUSCULOSKELETAL: No joint effusion. NEUROLOGIC: No change in exam. MEDICATIONS: Reviewed. ASSESSMENT AND PLAN: 1. End-stage renal disease. The patient is currently on peritoneal dialysis. We will continue current regimen of PD with 6 cycles of 4.25% dextrose solution. We will continue to monitor closely. If ultrafiltration does not improve, we may consider increasing the number of cycles. The patient does not wish to return to hemodialysis. 2. Anemia. Monitor hemoglobin and hematocrit levels, we will transfuse PRBCs as needed. Continue Epogen. 3. Mineral bone disorder. Monitor calcium and phosphorus levels. Continue phosphate binders. 4. Hypertension. Blood pressure controlled. Continue blood pressure regimen. Continue ultrafiltration with dialysis. 5. Pleural effusion, status post pigtail placement. We will follow up with CT surgery. May require VATS. 6. Leukocytosis secondary to pneumonia. Continue current antibiotic regimen. 7. History of intracranial hemorrhage. 8. Seizure disorder. Result Diagram: 10/12/18 0530 10/12/18 0530 Results 24hrs Laboratory Tests Test 10/12/18 05:30 White Blood Count 13.8 H Red Blood Count 2.56 L Hemoglobin 6.9 *L Hematocrit 22.6 L Mean Corpuscular Volume 88.3 Mean Corpuscular Hemoglobin 27.0 L Mean Corpuscular Hemoglobin Concent 30.5 L Red Cell Distribution Width 16.8 H Platelet Count 499 H Mean Platelet Volume 11.0 H Immature Granulocytes % 0.700 H Neutrophils % 71.3 Segmented Neutrophils % (Manual) 75 Band Neutrophils % (Manual) 1 Lymphocytes % 9.6 L Lymphocytes % (Manual) 10 L Monocytes % 16.3 H Monocytes % (Manual) 10 Eosinophils % 1.7 Eosinophils % (Manual) 4 Basophils % 0.4 Nucleated Red Blood Cells % 0.0 Immature Granulocytes # 0.090 H Neutrophils # 9.9 H Neutrophils # (Manual) 10.4 H Band Neutrophils # 0.1 Lymphocytes (Manual) 1.3 Lymphocytes # 1.3 Monocytes # 2.3 H Monocytes # (Manual) 1.3 H Eosinophils # 0.2 Basophils # 0.1 Nucleated Red Blood Cells # 0.0 Platelet Estimate NORMAL Polychromasia 3+ Hypochromasia 2+ Poikilocytosis 2+ Anisocytosis 2+ Microcytosis 1+ Macrocytosis 1+ Target Cells 1+ Sodium Level 139 Potassium Level 3.6 Chloride Level 92 L Carbon Dioxide Level 30 Anion Gap 17 H Blood Urea Nitrogen 65 H Creatinine 11.30 H Est Glomerular Filtrat Rate mL/min 4 L Glucose Level 144 Lactic Acid Level 1.3 Calcium Level 8.5 Phosphorus Level 5.8 H Magnesium Level 2.0 Exam/Review of Systems Exam Vitals Vital Signs Date Temp Pulse Resp B/P (MAP) Pulse Ox O2 O2 Flow FiO2 Time Delivery Rate 10/12/18 116 118/69 08:00 10/12/18 97.7 18 92 Room Air 07:42 10/11/18 3.0 20:00 Intake and Output 10/11/18 10/11/18 10/12/18 1515:00 23:00 07:00 IntakeIntake Total 960 ml 250 ml 100 ml OutputOutput Total 1098 ml 20 ml 30 ml BalanceBalance -138 ml 230 ml 70 ml Results Results 24hrs Laboratory Tests Test 10/12/18 05:30 White Blood Count 13.8 H Red Blood Count 2.56 L Hemoglobin 6.9 *L Hematocrit 22.6 L Mean Corpuscular Volume 88.3 Mean Corpuscular Hemoglobin 27.0 L Mean Corpuscular Hemoglobin Concent 30.5 L Red Cell Distribution Width 16.8 H Platelet Count 499 H Mean Platelet Volume 11.0 H Immature Granulocytes % 0.700 H Neutrophils % 71.3 Segmented Neutrophils % (Manual) 75 Band Neutrophils % (Manual) 1 Lymphocytes % 9.6 L Lymphocytes % (Manual) 10 L Monocytes % 16.3 H Monocytes % (Manual) 10 Eosinophils % 1.7 Eosinophils % (Manual) 4 Basophils % 0.4 Nucleated Red Blood Cells % 0.0 Immature Granulocytes # 0.090 H Neutrophils # 9.9 H Neutrophils # (Manual) 10.4 H Band Neutrophils # 0.1 Lymphocytes (Manual) 1.3 Lymphocytes # 1.3 Monocytes # 2.3 H Monocytes # (Manual) 1.3 H Eosinophils # 0.2 Basophils # 0.1 Nucleated Red Blood Cells # 0.0 Platelet Estimate NORMAL Polychromasia 3+ Hypochromasia 2+ Poikilocytosis 2+ Anisocytosis 2+ Microcytosis 1+ Macrocytosis 1+ Target Cells 1+ Sodium Level 139 Potassium Level 3.6 Chloride Level 92 L Carbon Dioxide Level 30 Anion Gap 17 H Blood Urea Nitrogen 65 H Creatinine 11.30 H Est Glomerular Filtrat Rate mL/min 4 L Glucose Level 144 Lactic Acid Level 1.3 Calcium Level 8.5 Phosphorus Level 5.8 H Magnesium Level 2.0 Medications Medication Current Medications IV Flush (NS 3 ml) 3 ml PER PROTOCOL IV Last administered on 10/05/18at 01:29; Admin Dose 3 ML; Start 10/05/18 at 00:30 Ondansetron HCl (Zofran Inj) 4 mg Q6H PRN IV NAUSEA/VOMITING Last administered on 10/10/18 06:30; Admin Dose 4 MG; Start 10/05/18 at 00:30 Acetaminophen (Tylenol Tab) 650 mg Q6H PRN PO .PAIN 1-3 OR TEMP; Start 10/05/18 at 00:30 Docusate Sodium (Colace) 100 mg Q12H PRN PO .CONSTIPATION; Start 10/05/18 at 00:30 Bisacodyl (Dulcolax) 5 mg DAILY PRN PO .CONSTIPATION; Start 10/05/18 at 00:30 Acetaminophen/ Hydrocodone Bitart ([place] (5/325)) 1 tab Q4H PRN PO MODERATE PAIN LEVEL 4-6 Last administered on 10/07/18at 04:31; Admin Dose 1 TAB; Start 10/05/18 at 00:30 Morphine Sulfate (morphine) 2 mg Q4H PRN IV SEVERE PAIN LEVEL 7-10 Last administered on 10/12/18 09:43; Admin Dose 2 MG; Start 10/05/18 at 00:38 Hydralazine HCl (Apresoline) 10 mg Q4H PRN IV ELEVATED SYSTOLIC BP Last administered on 10/07/18 06:48; Admin Dose 10 MG; Start 10/05/18 at 01:30 Piperacillin Sod/ Tazobactam Sod 50 ml @ 100 mls/hr Q12 IVPB Last administered on 10/12/18 08:48; Admin Dose 100 MLS/HR; Start 10/05/18 at 10:00 Lisinopril (Zestril) 20 mg BID PO Last administered on 10/12/18 08:47; Admin Dose 20 MG; Start 10/06/18 at 10:00 Amlodipine Besylate (Norvasc) 10 mg DAILY PO Last administered on 10/12/18 08:47; Admin Dose 10 MG; Start 10/07/18 at 09:00 Oxycodone HCl (Oxycontin) 15 mg BID PO Last administered on 10/11/18 08:50; Admin Dose 15 MG; Start 10/06/18 at 18:00 Vancomycin HCl (Vanco Iv Per Pharmacy) VANCOMYCIN PER PHARMACY PER PROTOCOL XX ; Start 10/07/18 at 12:00 Acetaminophen/ Hydrocodone Bitart ([place] (5/325)) 1 tab Q4H PRN PO MODERATE PAIN LEVEL 4-6; Start 10/07/18 at 12:00 Lorazepam (Ativan) 0.5 mg DAILY PRN PO ANXIETY; Start 10/07/18 at 18:30 Diphenhydramine HCl (Benadryl) 25 mg Q6H PRN PO ITCHING Last administered on 10/11/18 16:25; Admin Dose 25 MG; Start 10/07/18 at 21:00 Sevelamer Carbonate (Renvela) 1,600 mg WITH MEALS PO Last administered on 08:47; Admin Dose 1,600 MG; Start 10/09/18 at 12:00 Epoetin Timoteo (Epogen (Esrd)) 10,000 units MoWeFr@17 SC Last administered on 10/11/18 18:22; Admin Dose 10,000 UNITS; Start 10/09/18 at 17:00 Pantoprazole (Protonix Tab) 40 mg DAILY@06 PO Last administered on 10/12/18 05:47; Admin Dose 40 MG; Start 10/10/18 at 19:00 Miscellaneous Information (*Rx Drug Level Order Reminder*) STARR FELIX W/ AM LABS... 0500 ONCE XX ; Start 10/13/18 at 05:00; Stop 10/13/18 at 05:01 TORRIE HERNANDEZ DO Oct 12, 2018 09:56
--- NOTE | 2018-10-12 11:29 | PN ---
Date/Time of Note Date/Time of Note DATE: 10/12/18 TIME: 11:28 Assessment/Plan VTE Prophylaxis Risk score (from Ns)>0 risk: 3 SCD applied (from Ns): Yes Pharmacological prophylaxis: NA/contraindicated Pharm contraindication: low risk/ambulating, renal impairment Lines/Catheters IV Catheter Type (from [facility] Saline Lock Urinary Cath still in place: No Assessment/Plan Hospital Course 48 yo female with ESRD on PD with loculated pleural effusion s/p CT - Continue chest tube drainage -VATS not indicated per pulmonology, CT surgery to remove chest tubes once out put minimal - Appreciate pulmonary management - Malignancy evaluation ESRD: - PD per renal, patient may require hemodialysis Anemia of CKD: - Transfuse to Hgb 7 - SONIA per renal Prophylaxis: SCDs Result Diagram: 10/12/18 0530 10/12/18 0530 Results 24hrs Laboratory Tests Test 10/12/18 05:30 White Blood Count 13.8 H Red Blood Count 2.56 L Hemoglobin 6.9 *L Hematocrit 22.6 L Mean Corpuscular Volume 88.3 Mean Corpuscular Hemoglobin 27.0 L Mean Corpuscular Hemoglobin Concent 30.5 L Red Cell Distribution Width 16.8 H Platelet Count 499 H Mean Platelet Volume 11.0 H Immature Granulocytes % 0.700 H Neutrophils % 71.3 Segmented Neutrophils % (Manual) 75 Band Neutrophils % (Manual) 1 Lymphocytes % 9.6 L Lymphocytes % (Manual) 10 L Monocytes % 16.3 H Monocytes % (Manual) 10 Eosinophils % 1.7 Eosinophils % (Manual) 4 Basophils % 0.4 Nucleated Red Blood Cells % 0.0 Immature Granulocytes # 0.090 H Neutrophils # 9.9 H Neutrophils # (Manual) 10.4 H Band Neutrophils # 0.1 Lymphocytes (Manual) 1.3 Lymphocytes # 1.3 Monocytes # 2.3 H Monocytes # (Manual) 1.3 H Eosinophils # 0.2 Basophils # 0.1 Nucleated Red Blood Cells # 0.0 Platelet Estimate NORMAL Polychromasia 3+ Hypochromasia 2+ Poikilocytosis 2+ Anisocytosis 2+ Microcytosis 1+ Macrocytosis 1+ Target Cells 1+ Sodium Level 139 Potassium Level 3.6 Chloride Level 92 L Carbon Dioxide Level 30 Anion Gap 17 H Blood Urea Nitrogen 65 H Creatinine 11.30 H Est Glomerular Filtrat Rate mL/min 4 L Glucose Level 144 Lactic Acid Level 1.3 Calcium Level 8.5 Phosphorus Level 5.8 H Magnesium Level 2.0 Subjective 24 Hr Interval Summary Constitutional: no complaints Exam/Review of Systems Exam Vitals Vital Signs Date Temp Pulse Resp B/P (MAP) Pulse Ox O2 O2 Flow FiO2 Time Delivery Rate 10/12/18 116 118/69 08:00 10/12/18 97.7 18 92 Room Air 07:42 10/11/18 3.0 20:00 Intake and Output 10/11/18 10/11/18 10/12/18 1515:00 23:00 07:00 IntakeIntake Total 960 ml 250 ml 100 ml OutputOutput Total 1098 ml 20 ml 30 ml BalanceBalance -138 ml 230 ml 70 ml Constitutional: alert, oriented Respiratory: clear to auscultation Cardiovascular: regular rate and rhythm Gastrointestinal: soft; No distended Musculoskeletal: nl extremities to inspection Results Results 24hrs Laboratory Tests Test 10/12/18 05:30 White Blood Count 13.8 H Red Blood Count 2.56 L Hemoglobin 6.9 *L Hematocrit 22.6 L Mean Corpuscular Volume 88.3 Mean Corpuscular Hemoglobin 27.0 L Mean Corpuscular Hemoglobin Concent 30.5 L Red Cell Distribution Width 16.8 H Platelet Count 499 H Mean Platelet Volume 11.0 H Immature Granulocytes % 0.700 H Neutrophils % 71.3 Segmented Neutrophils % (Manual) 75 Band Neutrophils % (Manual) 1 Lymphocytes % 9.6 L Lymphocytes % (Manual) 10 L Monocytes % 16.3 H Monocytes % (Manual) 10 Eosinophils % 1.7 Eosinophils % (Manual) 4 Basophils % 0.4 Nucleated Red Blood Cells % 0.0 Immature Granulocytes # 0.090 H Neutrophils # 9.9 H Neutrophils # (Manual) 10.4 H Band Neutrophils # 0.1 Lymphocytes (Manual) 1.3 Lymphocytes # 1.3 Monocytes # 2.3 H Monocytes # (Manual) 1.3 H Eosinophils # 0.2 Basophils # 0.1 Nucleated Red Blood Cells # 0.0 Platelet Estimate NORMAL Polychromasia 3+ Hypochromasia 2+ Poikilocytosis 2+ Anisocytosis 2+ Microcytosis 1+ Macrocytosis 1+ Target Cells 1+ Sodium Level 139 Potassium Level 3.6 Chloride Level 92 L Carbon Dioxide Level 30 Anion Gap 17 H Blood Urea Nitrogen 65 H Creatinine 11.30 H Est Glomerular Filtrat Rate mL/min 4 L Glucose Level 144 Lactic Acid Level 1.3 Calcium Level 8.5 Phosphorus Level 5.8 H Magnesium Level 2.0 Medications Medication Current Medications IV Flush (NS 3 ml) 3 ml PER PROTOCOL IV Last administered on 10/05/18 01:29; Admin Dose 3 ML; Start 10/05/18 at 00:30 Ondansetron HCl (Zofran Inj) 4 mg Q6H PRN IV NAUSEA/VOMITING Last administered on 10/10/18 06:30; Admin Dose 4 MG; Start 10/05/18 at 00:30 Acetaminophen (Tylenol Tab) 650 mg Q6H PRN PO .PAIN 1-3 OR TEMP; Start 10/05/18 at 00:30 Docusate Sodium (Colace) 100 mg Q12H PRN PO .CONSTIPATION; Start 10/05/18 at 00:30 Bisacodyl (Dulcolax) 5 mg DAILY PRN PO .CONSTIPATION; Start 10/05/18 at 00:30 Acetaminophen/ Hydrocodone Bitart ([place] (5/325)) 1 tab Q4H PRN PO MODERATE PAIN LEVEL 4-6 Last administered on 10/07/18 04:31; Admin Dose 1 TAB; Start 10/05/18 at 00:30 Morphine Sulfate (morphine) 2 mg Q4H PRN IV SEVERE PAIN LEVEL 7-10 Last administered on 10/12/18 09:43; Admin Dose 2 MG; Start 10/05/18 at 00:38 Hydralazine HCl (Apresoline) 10 mg Q4H PRN IV ELEVATED SYSTOLIC BP Last administered on 10/07/18 06:48; Admin Dose 10 MG; Start 10/05/18 at 01:30 Piperacillin Sod/ Tazobactam Sod 50 ml @ 100 mls/hr Q12 IVPB Last administered on 10/12/18 08:48; Admin Dose 100 MLS/HR; Start 10/05/18 at 10:00 Lisinopril (Zestril) 20 mg BID PO Last administered on 10/12/18 08:47; Admin Dose 20 MG; Start 10/06/18 at 10:00 Amlodipine Besylate (Norvasc) 10 mg DAILY PO Last administered on 3/30/19at 08:47; Admin Dose 10 MG; Start 10/07/18 at 09:00 Oxycodone HCl (Oxycontin) 15 mg BID PO Last administered on 10/11/18at 08:50; Admin Dose 15 MG; Start 10/06/18 at 18:00 Vancomycin HCl (Vanco Iv Per Pharmacy) VANCOMYCIN PER PHARMACY PER PROTOCOL XX ; Start 10/07/18 at 12:00 Acetaminophen/ Hydrocodone Bitart ([place] (5/325)) 1 tab Q4H PRN PO MODERATE PAIN LEVEL 4-6; Start 10/07/18 at 12:00 Lorazepam (Ativan) 0.5 mg DAILY PRN PO ANXIETY; Start 10/07/18 at 18:30 Diphenhydramine HCl (Benadryl) 25 mg Q6H PRN PO ITCHING Last administered on 10/11/18at 16:25; Admin Dose 25 MG; Start 10/07/18 at 21:00 Sevelamer Carbonate (Renvela) 1,600 mg WITH MEALS PO Last administered on 10/12/18at 08:47; Admin Dose 1,600 MG; Start 10/09/18 at 12:00 Epoetin [place] (Epogen (Esrd)) 10,000 units MoWeFr@17 SC Last administered on 10/11/18at 18:22; Admin Dose 10,000 UNITS; Start 10/09/18 at 17:00 Pantoprazole (Protonix Tab) 40 mg DAILY@06 PO Last administered on 10/12/18at 05:47; Admin Dose 40 MG; Start 10/10/18 at 19:00 Miscellaneous Information (*Rx Drug Level Order Reminder*) VANCO RANDOM W/ AM LABS... 0500 ONCE XX ; Start 10/13/18 at 05:00; Stop 10/13/18 at 05:01 MARITO BRIGGS Oct 12, 2018 11:29
[2018-10-12] MEDS: ONDANSETRON 4 MG INJ IV PRN (15:09)
[2018-10-12 16:34] VITALS: BP 118/66; PULSE 112; RESP 18
[2018-10-12 19:13] VITALS: BP 116/65; PULSE 111
[2018-10-12 20:21] VITALS: BP 145/85; PULSE 120; RESP 18
[2018-10-13 02:19] VITALS: BP 123/68; PULSE 114; RESP 18
[2018-10-13] MEDS: DIPHENHYDRAMINE 25 MG CAP PO PRN ×2 (02:27→11:38)
[2018-10-13] MEDS: morphine 2 MG INJ IV PRN ×2 (02:29→20:14)
[2018-10-13] MEDS: PANTOPRAZOLE (EC) 40 MG TAB PO SCH (05:41)
[2018-10-13 07:49] VITALS: BP 110/70; PULSE 111; RESP 20
[2018-10-13] MEDS: SEVELAMER CARBONATE 800 MG TABLET PO SCH ×3 (08:39→18:24)
[2018-10-13] MEDS: LISINOPRIL 20 MG TAB PO SCH ×2 (08:39→22:16)
[2018-10-13] MEDS: AMLODIPINE 10 MG TAB PO SCH (08:40)
[2018-10-13] MEDS: PIPER-TAZO 2.25 GM (PMX) 50 ML IVPB SCH ×2 (08:40→22:16)
[2018-10-13] MEDS: oxyCODONE (CR) 15 MG TAB [oxyCONTIN] PO SCH ×2 (08:40→22:16)
--- NOTE | 2018-10-13 09:06 | PN ---
Date/Time of Note Date/Time of Note DATE: 10/13/18 TIME: 09:05 Assessment/Plan VTE Prophylaxis Risk score (from Ns)>0 risk: 2 SCD applied (from Ns): No SCD contraindicated: other Pharmacological prophylaxis: other Lines/Catheters [facility]from [facility] Saline Lock Urinary Cath still in place: No Assessment/Plan Hospital Course renal follow up SUBJECTIVE: The patient is complaining of pain around the chest tube site. The patient feels mildly swollen. No other events noted. s/p PRBC transfusion OBJECTIVE: HEENT: Head is normocephalic. NECK: Supple. HEART: Regular rate. LUNGS: Show diminished breath sounds at the base. ABDOMEN: Soft, nontender to palpation. No rebound or guarding. EXTREMITIES: Negative for clubbing, cyanosis. Trace edema. DERMATOLOGIC: No rashes. MUSCULOSKELETAL: No joint effusion. NEUROLOGIC: No change in exam. MEDICATIONS: Reviewed. ASSESSMENT AND PLAN: 1. End-stage renal disease. The patient is currently on peritoneal dialysis. We will continue current regimen of PD with 6 cycles of 4.25% dextrose solution. We will continue to monitor closely. If ultrafiltration does not improve, we may consider increasing the number of cycles. The patient does not wish to return to hemodialysis. 2. Anemia. s/p transfusion. Continue Epogen. 3. Mineral bone disorder. Monitor calcium and phosphorus levels. Continue phosphate binders. 4. Hypertension. Blood pressure controlled. Continue blood pressure regimen. Continue ultrafiltration with dialysis. 5. Pleural effusion, status post pigtail placement. We will follow up with CT surgery. 6. Leukocytosis secondary to pneumonia. Continue current antibiotic regimen. 7. History of intracranial hemorrhage. 8. Seizure disorder. Result Diagram: 10/13/18 0532 10/12/18 0530 Results 24hrs Laboratory Tests Test 10/13/18 05:32 10/13/18 06:24 White Blood Count 12.4 H Red Blood Count 3.29 #L Hemoglobin 9.2 #L Hematocrit 29.1 #L Mean Corpuscular Volume 88.4 Mean Corpuscular Hemoglobin 28.0 L Mean Corpuscular Hemoglobin Concent 31.6 L Red Cell Distribution Width 16.3 H Platelet Count 503 H Mean Platelet Volume 10.7 H Immature Granulocytes % 1.300 H Neutrophils % 72.4 Lymphocytes % 9.4 L Monocytes % 15.4 H Eosinophils % 1.0 Basophils % 0.5 Nucleated Red Blood Cells % 0.0 Immature Granulocytes # 0.160 H Neutrophils # 9.0 H Lymphocytes # 1.2 Monocytes # 1.9 H Eosinophils # 0.1 Basophils # 0.1 Nucleated Red Blood Cells # 0.0 Random Vancomycin Level 31.2 Lab Scanned Report BLOOD TRANSFUSION Exam/Review of Systems Exam Vitals Vital Signs Date Temp Pulse Resp B/P (MAP) Pulse Ox O2 O2 Flow FiO2 Time Delivery Rate 10/13/18 98.0 111 20 110/70 99 07:49 (83) 10/12/18 Nasal 3.0 19:50 Cannula Intake and Output 10/12/18 10/12/18 10/13/18 1515:00 23:00 07:00 IntakeIntake Total 960 ml 400 ml 240 ml OutputOutput Total 1684 ml 50 ml 10 ml BalanceBalance -724 ml 350 ml 230 ml Results Results 24hrs Laboratory Tests Test 10/13/18 05:32 10/13/18 06:24 White Blood Count 12.4 H Red Blood Count 3.29 #L Hemoglobin 9.2 #L Hematocrit 29.1 #L Mean Corpuscular Volume 88.4 Mean Corpuscular Hemoglobin 28.0 L Mean Corpuscular Hemoglobin Concent 31.6 L Red Cell Distribution Width 16.3 H Platelet Count 503 H Mean Platelet Volume 10.7 H Immature Granulocytes % 1.300 H Neutrophils % 72.4 Lymphocytes % 9.4 L Monocytes % 15.4 H Eosinophils % 1.0 Basophils % 0.5 Nucleated Red Blood Cells % 0.0 Immature Granulocytes # 0.160 H Neutrophils # 9.0 H Lymphocytes # 1.2 Monocytes # 1.9 H Eosinophils # 0.1 Basophils # 0.1 Nucleated Red Blood Cells # 0.0 Random Vancomycin Level 31.2 Lab Scanned Report BLOOD TRANSFUSION Medications Medication Current Medications IV Flush (NS 3 ml) 3 ml PER PROTOCOL IV Last administered on 10/05/18at 01:29; Admin Dose 3 ML; Start 10/05/18 at 00:30 Ondansetron HCl (Zofran Inj) 4 mg Q6H PRN IV NAUSEA/VOMITING Last administered on 10/12/18at 15:09; Admin Dose 4 MG; Start 10/05/18 at 00:30 Acetaminophen (Tylenol Tab) 650 mg Q6H PRN PO .PAIN 1-3 OR TEMP; Start 10/05/18 at 00:30 Docusate Sodium (Colace) 100 mg Q12H PRN PO .CONSTIPATION; Start 10/05/18 at 00:30 Bisacodyl (Dulcolax) 5 mg DAILY PRN PO .CONSTIPATION; Start 10/05/18 at 00:30 Acetaminophen/ Hydrocodone Bitart ([place] (5/325)) 1 tab Q4H PRN PO MODERATE PAIN LEVEL 4-6 Last administered on 10/07/18at 04:31; Admin Dose 1 TAB; Start 10/05/18 at 00:30 Morphine Sulfate (morphine) 2 mg Q4H PRN IV SEVERE PAIN LEVEL 7-10 Last administered on 10/13/18at 02:29; Admin Dose 2 MG; Start 10/05/18 at 00:38 Hydralazine HCl (Apresoline) 10 mg Q4H PRN IV ELEVATED SYSTOLIC BP Last administered on 10/07/18at 06:48; Admin Dose 10 MG; Start 10/05/18 at 01:30 Piperacillin Sod/ Tazobactam Sod 50 ml @ 100 mls/hr Q12 IVPB Last administered on 10/13/18at 08:40; Admin Dose 100 MLS/HR; Start 10/05/18 at 10:00 Lisinopril (Zestril) 20 mg BID PO Last administered on 10/13/18at 08:39; Admin Dose 20 MG; Start 10/06/18 at 10:00 Amlodipine Besylate (Norvasc) 10 mg DAILY PO Last administered on 10/13/18at 08:40; Admin Dose 10 MG; Start 10/07/18 at 09:00 Oxycodone HCl (Oxycontin) 15 mg BID PO Last administered on 10/13/18at 08:40; Admin Dose 15 MG; Start 10/06/18 at 18:00 Vancomycin HCl (Vanco Iv Per Pharmacy) VANCOMYCIN PER PHARMACY PER PROTOCOL XX ; Start 10/07/18 at 12:00 Acetaminophen/ Hydrocodone Bitart ([place] (5/325)) 1 tab Q4H PRN PO MODERATE PAIN LEVEL 4-6; Start 10/07/18 at 12:00 Lorazepam (Ativan) 0.5 mg DAILY PRN PO ANXIETY; Start 10/07/18 at 18:30 Diphenhydramine HCl (Benadryl) 25 mg Q6H PRN PO ITCHING Last administered on 10/13/18 02:27; Admin Dose 25 MG; Start 10/07/18 at 21:00 Sevelamer Carbonate (Renvela) 1,600 mg WITH MEALS PO Last administered on 10/13/18 08:39; Admin Dose 1,600 MG; Start 10/09/18 at 12:00 Epoetin [place] (Epogen (Esrd)) 10,000 units MoWeFr@17 SC Last administered on 10/11/18at 18:22; Admin Dose 10,000 UNITS; Start 10/09/18 at 17:00 Pantoprazole (Protonix Tab) 40 mg DAILY@06 PO Last administered on 10/13/18at 05:41; Admin Dose 40 MG; Start 10/10/18 at 19:00 TORRIE HERNANDEZ DO Oct 13, 2018 09:06
[2018-10-13 09:19] VITALS: BP 116/70; PULSE 111
[2018-10-13 14:41] VITALS: BP 116/64; PULSE 69; RESP 20
--- NOTE | 2018-10-13 16:13 | PN ---
Date/Time of Note Date/Time of Note DATE: 10/13/18 TIME: 16:12 Assessment/Plan VTE Prophylaxis Risk score (from Ns)>0 risk: 2 SCD applied (from [facility] [place]): Yes Pharmacological prophylaxis: NA/contraindicated Pharm contraindication: renal impairment Lines/Catheters IV Catheter Type (from [facility]): Saline Lock Urinary Cath still in place: No Assessment/Plan Hospital Course 48 yo female with ESRD on PD with loculated pleural effusion s/p CT - Continue chest tube drainage -VATS not indicated per pulmonology, CT surgery to remove chest tubes tomorrow - Appreciate pulmonary management - Malignancy evaluation ESRD: - PD per renal, patient may require hemodialysis Anemia of CKD: - Transfuse to Hgb 7 - SONIA per renal Prophylaxis: SCDs DC planning: Chest tubes to be removed tomorrow, patient can be discharged after Result Diagram: 10/13/18 0532 10/12/18 0530 Results 24hrs Laboratory Tests Test 10/13/18 05:32 10/13/18 06:24 White Blood Count 12.4 H Red Blood Count 3.29 #L Hemoglobin 9.2 #L Hematocrit 29.1 #L Mean Corpuscular Volume 88.4 Mean Corpuscular Hemoglobin 28.0 L Mean Corpuscular Hemoglobin Concent 31.6 L Red Cell Distribution Width 16.3 H Platelet Count 503 H Mean Platelet Volume 10.7 H Immature Granulocytes % 1.300 H Neutrophils % 72.4 Lymphocytes % 9.4 L Monocytes % 15.4 H Eosinophils % 1.0 Basophils % 0.5 Nucleated Red Blood Cells % 0.0 Immature Granulocytes # 0.160 H Neutrophils # 9.0 H Lymphocytes # 1.2 Monocytes # 1.9 H Eosinophils # 0.1 Basophils # 0.1 Nucleated Red Blood Cells # 0.0 Random Vancomycin Level 31.2 Lab Scanned Report BLOOD TRANSFUSION Subjective 24 Hr Interval Summary Constitutional: no complaints Exam/Review of Systems Exam Vitals Vital Signs Date Temp Pulse Resp B/P (MAP) Pulse Ox O2 O2 Flow FiO2 Time Delivery Rate 10/13/18 97.6 69 20 116/64 97 14:41 (81) 10/13/18 Nasal 08:15 Cannula 10/12/18 3.0 19:50 Intake and Output 10/12/18 10/12/18 10/13/18 1414:59 22:59 06:59 IntakeIntake Total 960 ml 400 ml 240 ml OutputOutput Total 1684 ml 50 ml 10 ml BalanceBalance -724 ml 350 ml 230 ml Constitutional: alert, oriented Respiratory: clear to auscultation Cardiovascular: regular rate and rhythm Gastrointestinal: soft; No distended Musculoskeletal: nl extremities to inspection Results Results 24hrs Laboratory Tests Test 10/13/18 05:32 10/13/18 06:24 White Blood Count 12.4 H Red Blood Count 3.29 #L Hemoglobin 9.2 #L Hematocrit 29.1 #L Mean Corpuscular Volume 88.4 Mean Corpuscular Hemoglobin 28.0 L Mean Corpuscular Hemoglobin Concent 31.6 L Red Cell Distribution Width 16.3 H Platelet Count 503 H Mean Platelet Volume 10.7 H Immature Granulocytes % 1.300 H Neutrophils % 72.4 Lymphocytes % 9.4 L Monocytes % 15.4 H Eosinophils % 1.0 Basophils % 0.5 Nucleated Red Blood Cells % 0.0 Immature Granulocytes # 0.160 H Neutrophils # 9.0 H Lymphocytes # 1.2 Monocytes # 1.9 H Eosinophils # 0.1 Basophils # 0.1 Nucleated Red Blood Cells # 0.0 Random Vancomycin Level 31.2 Lab Scanned Report BLOOD TRANSFUSION Medications Medication Current Medications IV Flush (NS 3 ml) 3 ml PER PROTOCOL IV Last administered on 10/05/18at 01:29; Admin Dose 3 ML; Start 10/05/18 at 00:30 Ondansetron HCl (Zofran Inj) 4 mg Q6H PRN IV NAUSEA/VOMITING Last administered on 10/12/18at 15:09; Admin Dose 4 MG; Start 10/05/18 at 00:30 Acetaminophen (Tylenol Tab) 650 mg Q6H PRN PO .PAIN 1-3 OR TEMP; Start 10/05/18 at 00:30 Docusate Sodium (Colace) 100 mg Q12H PRN PO .CONSTIPATION; Start 10/05/18 at 00:30 Bisacodyl (Dulcolax) 5 mg DAILY PRN PO .CONSTIPATION; Start 10/05/18 at 00:30 Acetaminophen/ Hydrocodone Bitart ([place] (5/325)) 1 tab Q4H PRN PO MODERATE PAIN LEVEL 4-6 Last administered on 10/07/18at 04:31; Admin Dose 1 TAB; Start 10/05/18 at 00:30 Morphine Sulfate (morphine) 2 mg Q4H PRN IV SEVERE PAIN LEVEL 7-10 Last administered on 10/13/18 02:29; Admin Dose 2 MG; Start 10/05/18 at 00:38 Hydralazine HCl (Apresoline) 10 mg Q4H PRN IV ELEVATED SYSTOLIC BP Last administered on 10/07/18 06:48; Admin Dose 10 MG; Start 10/05/18 at 01:30 Piperacillin Sod/ Tazobactam Sod 50 ml @ 100 mls/hr Q12 IVPB Last administered on 10/13/18 08:40; Admin Dose 100 MLS/HR; Start 10/05/18 at 10:00 Lisinopril (Zestril) 20 mg BID PO Last administered on 10/13/18 08:39; Admin Dose 20 MG; Start 10/06/18 at 10:00 Amlodipine Besylate (Norvasc) 10 mg DAILY PO Last administered on 10/13/18 08:40; Admin Dose 10 MG; Start 10/07/18 at 09:00 Oxycodone HCl (Oxycontin) 15 mg BID PO Last administered on 10/13/18 08:40; Admin Dose 15 MG; Start 10/06/18 at 18:00 Vancomycin HCl (Vanco Iv Per Pharmacy) VANCOMYCIN PER PHARMACY PER PROTOCOL XX ; Start 10/07/18 at 12:00 Acetaminophen/ Hydrocodone Bitart ([place] (5/325)) 1 tab Q4H PRN PO MODERATE PAIN LEVEL 4-6; Start 10/07/18 at 12:00 Lorazepam (Ativan) 0.5 mg DAILY PRN PO ANXIETY; Start 10/07/18 at 18:30 Diphenhydramine HCl (Benadryl) 25 mg Q6H PRN PO ITCHING Last administered on 10/13/18 11:38; Admin Dose 25 MG; Start 10/07/18 at 21:00 Sevelamer Carbonate (Renvela) 1,600 mg WITH MEALS PO Last administered on 10/13/18 13:04; Admin Dose 1,600 MG; Start 10/09/18 at 12:00 Epoetin [place] (Epogen (Esrd)) 10,000 units MoWeFr@17 SC Last administered on 10/11/18 18:22; Admin Dose 10,000 UNITS; Start 10/09/18 at 17:00 Pantoprazole (Protonix Tab) 40 mg DAILY@06 PO Last administered on 10/13/18at 05:41; Admin Dose 40 MG; Start 10/10/18 at 19:00 MARITO BRIGGS Oct 13, 2018 16:12
[2018-10-13 19:30] VITALS: BP 114/74; PULSE 111
[2018-10-13 20:10] VITALS: BP 122/78; PULSE 74; RESP 18
[2018-10-14] VITALS (7 sets, daily range): BP systolic 100–129; BP diastolic 59–74; PULSE 108–129; RESP 16–18
[2018-10-14] MEDS: DIPHENHYDRAMINE 25 MG CAP PO PRN (02:28)
[2018-10-14] MEDS: PANTOPRAZOLE (EC) 40 MG TAB PO SCH (05:34)
[2018-10-14] MEDS: SEVELAMER CARBONATE 800 MG TABLET PO SCH ×3 (08:30→17:43)
[2018-10-14] MEDS: oxyCODONE (CR) 15 MG TAB [oxyCONTIN] PO SCH ×2 (08:31→21:52)
[2018-10-14] MEDS: AMLODIPINE 10 MG TAB PO SCH (08:32)
[2018-10-14] MEDS: PIPER-TAZO 2.25 GM (PMX) 50 ML IVPB SCH (08:32)
[2018-10-14] MEDS: LISINOPRIL 20 MG TAB PO SCH ×2 (08:32→21:54)
--- NOTE | 2018-10-14 10:04 | PN ---
DATE: 10/14/2018 SUBJECTIVE: The patient is stable, no events overnight. OBJECTIVE: VITAL SIGNS: Blood pressure is 102/65, pulse 124, respiration 18, temperature 99.2. HEENT: Head is normocephalic. NECK: Supple. HEART: Regular rate. LUNGS: Show diminished breath sounds at the base. ABDOMEN: Soft, nontender to palpation without rebound or guarding. EXTREMITIES: Negative for clubbing, cyanosis, no edema. DERMATOLOGIC: No rashes. MUSCULOSKELETAL: No joint effusions. NEUROLOGIC: No change in exam. MEDICATIONS: Reviewed. LABORATORY DATA: Has been reviewed. ASSESSMENT AND PLAN: 1. End-stage renal disease. The patient is currently on peritoneal dialysis. We will continue curr ent regimen of PD with 6 cycles of 4.25 dextrose solution. Will monitor ultrafiltration closely. Th e patient is currently has adequate ultrafiltration approximately 1.2 liters in the last 24 hours. 2. Anemia. Patient is status post blood transfusion. Continue Epogen. 3. Mineral bone disorder. Continue to monitor calcium and phosphorus levels. Continue phosphatase binders. 4. Hypertension. Continue current blood pressure regimen. Continue ultrafiltration dialysis. 5. Pleural effusion, status post pigtail placement. Continue to monitor. Follow up CT surgery. 6. Leukocytosis, improving, likely due to pneumonia. Continue to monitor. 7. History of intracranial hemorrhage. 8. Seizure disorder. Dictated By: PHILLIP ARRIAZA/NTS Conf#: [id number] DID#: [id number] CC: YOSVANY DAS MD;*EndCC*
--- NOTE | 2018-10-14 10:37 | CONS ---
Assessment/Plan Assessment/Plan Assessment/Plan (Daily) Assessment and recommendations; 1. Patient admitted with shortness of breath due to bilateral complicated parapneumonic effusion with possibly empyema, there is no clear-cut demarcation between the pleura and lung parenchyma therefore making VATS potentially very difficult and risky procedure. Patient clinically quite stable and is not showing any signs of respiratory compromise. 2. No further drainage from pleural catheter. 3. Chronic renal failure, on hemodialysis. 4. Anemia. Consider discharge of antibiotics. Obtain follow-up chest x-ray in 3-4 weeks time , patient may require repeat CT imaging of the chest. She possibly may be a candidate for future VATS procedure. Consultation Date/Type/Reason Admit Date/Time Oct 04, 2018 at 23:55 Initial Consult Date 10/06/18 Type of Consult Pulmonary Date/Time of Note DATE: 10/14/18 TIME: 10:32 24 HR Interval Summary Free Text/Dictation Patient's condition is stable. Denies any chest pain, shortness of, coughing, sputum production. General exam; young female, awake alert, currently no distress. Exam/Review of Systems Exam Vitals Vital Signs Date Temp Pulse Resp B/P (MAP) Pulse Ox O2 O2 Flow FiO2 Time Delivery Rate 10/14/18 Nasal 3.0 08:10 Cannula 10/14/18 124 102/65 08:00 10/14/18 99.2 18 94 07:58 Intake and Output 10/13/18 10/13/18 10/14/18 1515:00 23:00 07:00 IntakeIntake Total 650 ml 290 ml 360 ml OutputOutput Total 2774 ml 60 ml 40 ml BalanceBalance -2124 ml 230 ml 320 ml Exam H EENT exam; supple neck, no JVD. No lymphadenopathy. Midline trachea. No thyromegaly. Patient has fair dentition. Chest exam; diminished breath on lung bases. Upper lungs are clear. Right pleural catheter in place. S1-S2 audible, no murmurs. Regular rhythm. Abdomen exam; soft, nontender. No organomegaly. Bowel sounds audible. Extremity exam; peripheral edema clubbing. SITE IDENTIFICATION SPECIALIST exam; no focal deficit. Results Result Diagram: 10/13/18 0532 10/12/18 0530 Medications Medication Current Medications IV Flush (NS 3 ml) 3 ml PER PROTOCOL IV Last administered on 3/23/19at 01:29; Admin Dose 3 ML; Start 10/05/18 at 00:30 Ondansetron HCl (Zofran Inj) 4 mg Q6H PRN IV NAUSEA/VOMITING Last administered on 10/12/18 15:09; Admin Dose 4 MG; Start 10/05/18 at 00:30 Acetaminophen (Tylenol Tab) 650 mg Q6H PRN PO .PAIN 1-3 OR TEMP; Start 10/05/18 at 00:30 Docusate Sodium (Colace) 100 mg Q12H PRN PO .CONSTIPATION; Start 10/05/18 at 00:30 Bisacodyl (Dulcolax) 5 mg DAILY PRN PO .CONSTIPATION; Start 10/05/18 at 00:30 Acetaminophen/ Hydrocodone Bitart ([place] (5/325)) 1 tab Q4H PRN PO MODERATE PAIN LEVEL 4-6 Last administered on 10/07/18 04:31; Admin Dose 1 TAB; Start 10/05/18 at 00:30 Morphine Sulfate (morphine) 2 mg Q4H PRN IV SEVERE PAIN LEVEL 7-10 Last administered on 10/13/18 20:14; Admin Dose 2 MG; Start 10/05/18 at 00:38 Hydralazine HCl (Apresoline) 10 mg Q4H PRN IV ELEVATED SYSTOLIC BP Last a dministered on 10/07/18 06:48; Admin Dose 10 MG; Start 10/05/18 at 01:30 Piperacillin Sod/ Tazobactam Sod 50 ml @ 100 mls/hr Q12 IVPB Last administered on 10/14/18 08:32; Admin Dose 100 MLS/HR; Start 10/05/18 at 10:00 Lisinopril (Zestril) 20 mg BID PO Last administered on 10/14/18 08:32; Admin D ose 20 MG; Start 10/06/18 at 10:00 Amlodipine Besylate (Norvasc) 10 mg DAILY PO Last administered on 10/14/18 08:32; Admin Dose 10 MG; Start 10/07/18 at 09:00 Oxycodone HCl (Oxycontin) 15 mg BID PO Last administered on 10/14/18 08:31; Admin Dose 15 MG; Start 10/06/18 at 18:00 Vancomycin HCl (Vanco Iv Per Pharmacy) VANCOMYCIN PER PHARMACY PER PROTOCOL XX ; Start 10/07/18 at 12:00 Acetaminophen/ Hydrocodone Bitart ([place] (5/325)) 1 tab Q4H PRN PO MODERATE PAIN LEVEL 4-6; Start 10/07/18 at 12:00 Lorazepam (Ativan) 0.5 mg DAILY PRN PO ANXIETY; Start 10/07/18 at 18:30 Diphenhydramine HCl (Benadryl) 25 mg Q6H PRN PO ITCHING Last administered on 10/14/18at 02:28; Admin Dose 25 MG; Start 10/07/18 at 21:00 Sevelamer Carbonate (Renvela) 1,600 mg WITH MEALS PO Last administered on 10/14/18at 08:30; Admin Dose 1,600 MG; Start 10/09/18 at 12:00 Epoetin Timoteo (Epogen (Esrd)) 10,000 units MoWeFr@17 SC Last administered on 10/11/18at 18:22; Admin Dose 10,000 UNITS; Start 10/09/18 at 17:00 Pantoprazole (Protonix Tab) 40 mg DAILY@06 PO Last administered on 10/14/18at 05:34; Admin Dose 40 MG; Start 10/10/18 at 19:00 ALONDRA KEENAN Oct 14, 2018 10:36
[2018-10-14] MEDS: morphine 2 MG INJ IV PRN (11:53)
[2018-10-14] MEDS ORDERED: EPOETIN ALFA-EPBX (ESRD) 10,000 UNIT/ML VIAL SC SCH (17:00)
--- NOTE | 2018-10-14 19:54 | PN ---
Date/Time of Note Date/Time of Note DATE: 10/14/18 TIME: 19:54 Assessment/Plan VTE Prophylaxis Risk score (from Nsg)>0 risk: 2 SCD applied (from Nsg): Yes Pharmacological prophylaxis: heparin Lines/Catheters IV Catheter Type (from Nrsg): Saline Lock Urinary Cath still in place: No Assessment/Plan Hospital Course 48 yo female with ESRD on PD with loculated pleural effusion s/p CT - Continue chest tube - VATS consideration per CT surg - Appreciate pulmonary management - Malignancy evaluation ESRD: - PD per renal Anemia of CKD: - Transfuse to Hgb 7 - SONIA per renal Result Diagram: 10/13/18 0532 10/12/18 0530 Exam/Review of Systems Exam Vitals Vital Signs Date Temp Pulse Resp B/P (MAP) Pulse Ox O2 O2 Flow FiO2 Time Delivery Rate 10/14/18 99.1 129 17 100/67 91 Room Air 13:46 (78) 10/14/18 3.0 08:10 Intake and Output 10/13/18 10/13/18 10/14/18 1414:59 22:59 06:59 IntakeIntake Total 650 ml 290 ml 360 ml OutputOutput Total 2774 ml 60 ml 40 ml BalanceBalance -2124 ml 230 ml 320 ml Medications Medication Current Medications IV Flush (NS 3 ml) 3 ml PER PROTOCOL IV Last administered on 10/05/18at 01:29; Admin Dose 3 ML; Start 10/05/18 at 00:30 Ondansetron HCl (Zofran Inj) 4 mg Q6H PRN IV NAUSEA/VOMITING Last administered on 10/12/18at 15:09; Admin Dose 4 MG; Start 10/05/18 at 00:30 Acetaminophen (Tylenol Tab) 650 mg Q6H PRN PO .PAIN 1-3 OR TEMP; Start 10/05/18 at 00:30 Docusate Sodium (Colace) 100 mg Q12H PRN PO .CONSTIPATION; Start 10/05/18 at 00:30 Bisacodyl (Dulcolax) 5 mg DAILY PRN PO .CONSTIPATION; Start 10/05/18 at 00:30 Acetaminophen/ Hydrocodone Bitart ([place] (5/325)) 1 tab Q4H PRN PO MODERATE PAIN LEVEL 4-6 Last administered on 10/07/18at 04:31; Admin Dose 1 TAB; Start 10/05/18 at 00:30 Morphine Sulfate (morphine) 2 mg Q4H PRN IV SEVERE PAIN LEVEL 7-10 Last administered on 10/14/18 11:53; Admin Dose 2 MG; Start 10/05/18 at 00:38 Hydralazine HCl (Apresoline) 10 mg Q4H PRN IV ELEVATED SYSTOLIC BP Last administered on 10/07/18 06:48; Admin Dose 10 MG; Start 10/05/18 at 01:30 Lisinopril (Zestril) 20 mg BID PO Last administered on 10/14/18 08:32; Admin Dose 20 MG; Start 10/06/18 at 10:00 Amlodipine Besylate (Norvasc) 10 mg DAILY PO Last administered on 10/14/18 08:32; Admin Dose 10 MG; Start 10/07/18 at 09:00 Oxycodone HCl (Oxycontin) 15 mg BID PO Last administered on 10/14/18 08:31; Admin Dose 15 MG; Start 10/06/18 at 18:00 Acetaminophen/ Hydrocodone Bitart ([place] (5/325)) 1 tab Q4H PRN PO MODERATE PAIN LEVEL 4-6; Start 10/07/18 at 12:00 Lorazepam (Ativan) 0.5 mg DAILY PRN PO ANXIETY; Start 10/07/18 at 18:30 Diphenhydramine HCl (Benadryl) 25 mg Q6H PRN PO ITCHING Last administered on 10/14/18 02:28; Admin Dose 25 MG; Start 10/07/18 at 21:00 Sevelamer Carbonate (Renvela) 1,600 mg WITH MEALS PO Last administered on 10/14/18 17:43; Admin Dose 1,600 MG; Start 10/09/18 at 12:00 Pantoprazole (Protonix Tab) 40 mg DAILY@06 PO Last administered on 10/14/18 05:34; Admin Dose 40 MG; Start 10/10/18 at 19:00 Miscellaneous Information (* Miscellaneous Pharmacy Order) ADD HEPARIN (1... DAILY PRN XX PERITONEAL DIALYSIS; Start 10/14/18 at 13:30 Epoetin Timoteo-epbx (RETACRIT(esrd)) 10,000 unit MoWeFr@17 SC Last administered on 10/14/18at 17:45; Admin Dose 10,000 UNIT; Start 10/14/18 at 17:00 YOSVANY DAS MD Oct 14, 2018 19:54
[2018-10-14] MEDS ORDERED: HEPARIN 1000 UNITS/ML 10 ML INJ INJ SCH (21:00)
[2018-10-15] MEDS: DIPHENHYDRAMINE 25 MG CAP PO PRN (01:26)
[2018-10-15] MEDS: morphine 2 MG INJ IV PRN ×3 (01:27→17:57)
[2018-10-15 02:00] VITALS: BP 124/72; PULSE 121; RESP 18
[2018-10-15] MEDS: PANTOPRAZOLE (EC) 40 MG TAB PO SCH (05:28)
[2018-10-15 07:58] VITALS: BP 121/69; PULSE 118; RESP 20
[2018-10-15] MEDS: SEVELAMER CARBONATE 800 MG TABLET PO SCH ×2 (08:18→13:19)
[2018-10-15] MEDS: AMLODIPINE 10 MG TAB PO SCH (08:19)
[2018-10-15] MEDS: oxyCODONE (CR) 15 MG TAB [oxyCONTIN] PO SCH (08:19)
[2018-10-15] MEDS: LISINOPRIL 20 MG TAB PO SCH (08:20)
--- NOTE | 2018-10-15 09:46 | PN ---
DATE: 10/15/2018 SUBJECTIVE: The patient is stable. No events overnight. OBJECTIVE: VITAL SIGNS: Blood pressure is 121/69, pulse 118, respirations 20, temperature 98.8. HEENT: Head is normocephalic. NECK: Supple. HEART: Regular rate. LUNGS: Show diminished breath sounds at the base. ABDOMEN: Soft, nontender to palpation without rebound or guarding. EXTREMITIES: Negative for clubbing, cyanosis, no edema. DERMATOLOGIC: No rashes. MUSCULOSKELETAL: No joint effusion. NEUROLOGIC: No change in exam. MEDICATIONS: Reviewed. LABORATORY DATA: From 10/12/2018 was reviewed. ASSESSMENT AND PLAN: 1. End-stage renal disease. The patient is currently on peritoneal dialysis. Continue current garth men of PD with 6 cycles of 4.25% dextrose solution. Continue ultrafiltration. 2. Anemia. Continue to monitor hemoglobin and hematocrit levels. Continue Epogen. 3. Mineral bone disorder, monitor calcium and phosphorus levels. Continue phosphate binders. 4. Hypertension. Blood pressure controlled. Continue current blood pressure regimen. Continue ult rafiltration with dialysis. 5. Pleural effusion, status post pigtail placement. The patient has been seen by CT surgery, questi onable VATS that may be required. 6. Leukocytosis, improving. Continue to monitor. 7. Seizure disorder. Dictated By: PHILLIP SILVERIO DO NR/NTS Conf#: [id number] DID#: [id number] CC: YOSVANY DAS MD; PHILLIP SILVERIO DO;*EndCC*
[2018-10-15 10:00] VITALS: BP 99/60; PULSE 125
--- NOTE | 2018-10-15 10:01 | CONS ---
Assessment/Plan Assessment/Plan Assessment/Plan (Daily) Assessment recommendations; 1. Patient admitted with bilateral pleural effusions which are complicated possibly parapneumonic with empyema, status post placement of right pleural catheter without any further drainage. Patient clinically is doing very well and is essentially symptomatic. 2. Chronic renal failure, hemodialysis. 3. Chronic anemia. 4. CT imaging of the chest reveals very poor demarcation between pleura and lung parenchyma therefore VATS would be a very risky procedure at this point. Recommend removing pleural catheter, discharging the patient. Obtain follow-up chest x-ray/CT chest in 3-4 weeks time. The patient possibly may potentially benefit from future VATS procedure once there is clear demarcation between pleura and lung parenchyma. Consultation Date/Type/Reason Admit Date/Time Oct 04, 2018 at 23:55 Initial Consult Date 10/06/18 Type of Consult Pulmonary Date/Time of Note DATE: 10/15/18 TIME: 09:59 24 HR Interval Summary Free Text/Dictation Patient's condition is stable. Remains awake and alert. Denies any shortness of breath, chest pain, coughing. General exam; young female, awake alert, currently no distress. Exam/Review of Systems Exam Vitals Vital Signs Date Temp Pulse Resp B/P (MAP) Pulse Ox O2 O2 Flow FiO2 Time Delivery Rate 10/15/18 98.8 118 20 121/69 96 07:58 (86) 10/15/18 Room Air 02:00 10/14/18 3.0 20:30 Intake and Output 10/14/18 10/14/18 10/15/18 1515:00 23:00 07:00 IntakeIntake Total 290 ml 120 ml 240 ml OutputOutput Total 2296 ml 60 ml BalanceBalance -2006 ml 120 ml 180 ml Exam H EENT exam; supple neck, no JVD. No lymphadenopathy. Patient has good dentition. No neck masses. Chest exam; diminished breath sound lung bases. Upper lobes are clear. S1-S2 audible, no murmurs. Regular rhythm. Right pleural catheter in place. Abdomen exam; soft, nontender. No organomegaly. Bowel sounds audible. Extremity exam; no peripheral edema. COAL HAULER exam; no focal deficit. Results Result Diagram: 10/13/18 0532 10/12/18 0530 Medications Medication Current Medications IV Flush (NS 3 ml) 3 ml PER PROTOCOL IV Last administered on 10/05/18 01:29; Admin Dose 3 ML; Start 10/05/18 at 00:30 Ondansetron HCl (Zofran Inj) 4 mg Q6H PRN IV NAUSEA/VOMITING Last administered on 10/12/18 15:09; Admin Dose 4 MG; Start 10/05/18 at 00:30 Acetaminophen (Tylenol Tab) 650 mg Q6H PRN PO .PAIN 1-3 OR TEMP; Start 10/05/18 at 00:30 Docusate Sodium (Colace) 100 mg Q12H PRN PO .CONSTIPATION; Start 10/05/18 at 00:30 Bisacodyl (Dulcolax) 5 mg DAILY PRN PO .CONSTIPATION; Start 10/05/18 at 00:30 Acetaminophen/ Hydrocodone Bitart ([place] (5/325)) 1 tab Q4H PRN PO MODERATE PAIN LEVEL 4-6 Last administered on 10/07/18 04:31; Admin Dose 1 TAB; Start 10/05/18 at 00:30 Morphine Sulfate (morphine) 2 mg Q4H PRN IV SEVERE PAIN LEVEL 7-10 Last administered on 10/15/18 01:27; Admin Dose 2 MG; Start 10/05/18 at 00:38 Hydralazine HCl (Apresoline) 10 mg Q4H PRN IV ELEVATED SYSTOLIC BP Last administered on 10/07/18 06:48; Admin Dose 10 MG; Start 10/05/18 at 01:30 Lisinopril (Zestril) 20 mg BID PO Last administered on 10/15/18 08:20; Admin Dose 20 MG; Start 10/06/18 at 10:00 Amlodipine Besylate (Norvasc) 10 mg DAILY PO Last administered on 10/15/18 08:19; Admin Dose 10 MG; Start 10/07/18 at 09:00 Oxycodone HCl (Oxycontin) 15 mg BID PO Last administered on 10/15/18 08:19; Admin Dose 15 MG; Start 10/06/18 at 18:00 Acetaminophen/ Hydrocodone Bitart ([place] (5/325)) 1 tab Q4H PRN PO MODERATE PAIN LEVEL 4-6; Start 10/07/18 at 12:00 Lorazepam (Ativan) 0.5 mg DAILY PRN PO ANXIETY; Start 10/07/18 at 18:30 Diphenhydramine HCl (Benadryl) 25 mg Q6H PRN PO ITCHING Last administered on 10/15/18at 01:26; Admin Dose 25 MG; Start 10/07/18 at 21:00 Sevelamer Carbonate (Renvela) 1,600 mg WITH MEALS PO Last administered on at 08:18; Admin Dose 1,600 MG; Start 10/09/18 at 12:00 Pantoprazole (Protonix Tab) 40 mg DAILY@06 PO Last administered on 10/15/18 05:28; Admin Dose 40 MG; Start 10/10/18 at 19:00 Miscellaneous Information (* Miscellaneous Pharmacy Order) ADD HEPARIN (1... DAILY PRN XX PERITONEAL DIALYSIS; Start 10/14/18 at 13:30 Epoetin Timoteo-epbx (RETACRIT(esrd)) 10,000 unit MoWeFr@17 SC Last administered on 10/14/18at 17:45; Admin Dose 10,000 UNIT; Start 10/14/18 at 17:00 ALONDRA KEENAN Oct 15, 2018 10:01
--- NOTE | 2018-10-15 13:00 | PN ---
Date/Time of Note Date/Time of Note DATE: 10/15/18 TIME: 12:59 Assessment/Plan Lines/Catheters IV Catheter Type (from Nrsg): Saline Lock Miguel in Place (from Nrsg): No Assessment/Plan Assessment/Plan Pleural effusion minimal drainage will DC pigtail cath Subjective 24 Hr Interval Summary Constitutional: improved Pain Control: mild Exam/Review of Systems Vital Signs Vitals Vital Signs Date Temp Pulse Resp B/P (MAP) Pulse Ox O2 O2 Flow FiO2 Time Delivery Rate 10/15/18 125 99/60 10:00 10/15/18 Nasal 3.0 08:10 Cannula 10/15/18 98.8 20 96 07:58 Intake and Output 10/14/18 10/14/18 10/15/18 1515:00 23:00 07:00 IntakeIntake Total 290 ml 120 ml 240 ml OutputOutput Total 2296 ml 60 ml BalanceBalance -2006 ml 120 ml 180 ml Exam ENMT: nl external ears & nose, nl lips & teeth, nl nasal mucosa & septum, mucosa pink and moist Neck: supple, non-tender Respiratory: clear to auscultation, normal air movement Cardiovascular: regular rate and rhythm, nl pulses Gastrointestinal: soft, nl liver, spleen, non-tender Musculoskeletal: nl extremities to inspection, nl gait and stance Results Result Diagram: 10/13/18 0532 10/12/18 0530 RENAN ABAD MD Oct 15, 2018 13:00
[2018-10-15 14:48] VITALS: BP 103/59; PULSE 118; RESP 20
--- NOTE | 2018-10-15 17:30 | DS ---
Date/Time of Note Date/Time of Note DATE: 10/15/18 TIME: 17:30 Discharge Summary Admission/Discharge Info Admit Date/Time Oct 04, 2018 at 23:55 Discharge Date/Time Discharge Diagnosis Pleural effusion Patient Condition: Stable Hospital Course 48 yo female with ESRD on PD with loculated pleural effusion - Chest tube was placed with resolution of effusion. Patinent was advised to follow up with PMD. Will require repeat imaging of chest in comign weeks. No changes were made to her home medications Home Meds Reported Medications Zolpidem Tartrate* (Zolpidem Tartrate*) 10 Mg Tablet, 10 MG PO QHS PRN for INSOMNIA, #30 TAB 10/05/18 Ondansetron Hcl* (Zofran*) 4 Mg Tab, 4 MG PO BID for n/v, TAB 10/05/18 Warfarin Sodium (Warfarin Sodium) 2 Mg Tablet, 4 MG PO DAILY, TAB 10/05/18 Albuterol Sulfate* (Ventolin HFA*) 18 Gm Hfa.aer.ad, 2 PUFF INHALATION Q6H PRN for SHORTNESS OF BREATH, #1 INHALER 10/05/18 Albuterol Sulfate* (Ventolin HFA*) 18 Gm Hfa.aer.ad, 1 PUFF INHALATION Q6, #1 INHALER 10/05/18 Acetaminophen with Codeine (Acetaminophen-Cod #3 Tablet) 1 Each Tablet, 1 TAB PO Q8 PRN for PAIN LEVEL 6-10, #20 TAB 10/05/18 Tramadol HCl (Tramadol HCl) 50 Mg Tablet, 50 MG PO BID, #60 TAB 10/05/18 Sevelamer Hcl* (Renagel*) 800 Mg Tablet, 2400 MG PO WITH MEALS, TAB 10/05/18 Beclomethasone Dipropionate (Qvar Redihaler (40 MCG)) 10.6 Gm Hfa.aeroba, 40 MCG IH BID, INH 10/05/18 Calcium Acetate* (Phoslo*) 667 Mg Tablet, 667 MG PO WITH MEALS, TAB 10/05/18 Omeprazole* (Omeprazole*) 20 Mg Capsule.dr, 20 MG PO DAILY, #30 CAP 10/05/18 [Nephrovites] No Conflict Check, 1 PO DAILY 10/05/18 Metoprolol Succinate* (Toprol XL*) 50 Mg Tab.er.24h, 50 MG PO DAILY, #30 TAB 10/05/18 Losartan Potassium* (Cozaar*) 50 Mg Tablet, 50 MG PO BID, #60 TAB 10/05/18 Lorazepam* (Lorazepam*) 1 Mg Tablet, 1 MG PO BID PRN for ANXIETY, #30 TAB 10/05/18 Gabapentin* (Gabapentin*) 100 Mg Capsule, 100 MG PO TID, #90 CAP 10/05/18 Folic Acid* (Folic Acid*) 1 Mg Tablet, 1 MG PO DAILY, TAB 10/05/18 Ferrous Sulfate* (Ferrous Sulfate*) 325 Mg Tabec, 325 MG PO DAILY, TAB 10/05/18 Clonidine Hcl* (Clonidine Hcl*) 0.2 Mg Tablet, 0.2 MG PO Q4H PRN for ELEVATED BLOOD PRESSURE, TAB 10/05/18 Amlodipine Besylate* (Amlodipine Besylate*) 2.5 Mg Tablet, 5 MG PO DAILY, #30 TAB 10/05/18 Atorvastatin* (Atorvastatin*) 40 Mg Tablet, 40 MG PO QHS, #30 TAB 10/05/18 Primary Care Provider Care Physician YOSVANY Lal MD Oct 15, 2018 17:30
== END 2018-10-15 19:55 | disposition home or self-care (01) | DRG 177 ==
LOC: 2NE 23:55
PROVIDERS: ADMIT Internal Medicine; ATTEND Internal Medicine
PROC: 30233N1 Transfusion of Nonautologous Red Blood Cells into Peripheral Vein, Percutaneous Approach (ICD-10-PCS; principal; 2018-10-04)
PROC: 3E1M39Z Irrigation of Peritoneal Cavity using Dialysate, Percutaneous Approach (ICD-10-PCS; 2018-10-05)
DX: J86.9 Pyothorax without fistula (principal); N18.6 End stage renal disease; J18.9 Pneumonia, unspecified organism; J90 Pleural effusion, not elsewhere classified; I12.0 Hypertensive chronic kidney disease with stage 5 chronic kidney disease or end stage renal disease; J98.11 Atelectasis; J86.0 Pyothorax with fistula; Z99.2 Dependence on renal dialysis; D63.1 Anemia in chronic kidney disease; G40.909 Epilepsy, unspecified, not intractable, without status epilepticus; R91.8 Other nonspecific abnormal finding of lung field
CPT/HCPCS: 36430; 71045; 71250; 74176; 80048; 80053; 80202; 83036; 83605; 83735; 84100; 84443; 85025; 85610; 85730; 86706; 86850; 86900; 86901; 86920; 87070; 87081; 87340; 89051; 90945; 93306; J0360; J1644; J2270; J2405; J2543; J2765; J3370; J7040; J7050; P9016; Q4081; Q5105